=== PATIENT | female | born 1935 | race Caucasian/White ===

== ENCOUNTER → 2017-04-16 | Day surgery (SDC) | payer OTHER ==
[2017-04-11 11:16] VITALS: Ht 149.9 cm; Wt 100.0 kg
[~2017-04-16] VITALS: Ht 149.9 cm; Wt 100.0 kg
[~2017-04-16] MED LIST: ALPPOPS5 OPB; ATV/1 PO; BUSP5TAB59 PO; CALC500C70 PO; CEFD1CAP14 PO; ESMOLOL HCL 10 MG/ML 10 ML VIAL ONE; FURO20TA PO; GLUC1CAP35 PO; LEVO125T5 PO; LIDOCAINE HCL 2% 2 ML VIAL (20MG/ML) ONE; LOSA100T65 PO; METO50TA16 PO; METOPROLOL TARTRATE 50 MG TAB PO SCH; OMEG10007 PO; PHENYLEPHRINE 100MCG/ML 5ML SYR ONE; POTA10TA PO; PROPOFOL IV EMULSION 10 MG/ML 20 ML VIAL IV ONE; SODIUM CHLORIDE 0.9% 500ML 500 ML IV ONE; SPIR25TA PO; WARF-246 PO
--- NOTE | 2017-04-16 10:15 | Endo History and Physical ---
History & Physical Date of Service: April 16, 2017. Chief Complaint: Average risk screening Referring Physician: Maryrcuz Luciano History of Present Illness Average risk screening, recent rectal pain. Past Medical History Atrial Fibrillation, Arthritis, Asthma Past Surgical History Hx Cardiac Surgery: Yes (CARDIOVERSION) Hx Internal Defibrillator: No Hx Pacemaker: No Hx Abdominal Surgery: Yes (PREETI, UMBILICAL HERNIA, JAYE BSO, APPY) Hx of Implantable Prosthesis: No Hx Post-Op Nausea and Vomiting: No Hx Cancer Surgery: No Hx Thoracic Surgery: No Hx Orthopedic: No Hx Urinary Tract Surgery: Yes (URETER OBSTRUCTION REPAIR, BLADDER TACK) Family History None Social History Smoking Status: Never Smoker Hx Substance Use: No Hx Alcohol Use: No Allergies Coded Allergies: Codeine (Verified Allergy, Mild, N/V, 04/11/17) Benzalkonium Chloride (Verified Allergy, Unknown, "DID NOT WORK", 04/11/17) Bimatoprost (Verified Allergy, Unknown, "DID NOT WORK, 04/11/17) Sulfa Antibiotics (Verified Allergy, Unknown, ITCHING/HIVES, 04/11/17) Timolol (Verified Allergy, Unknown, "DID NOT WORK", 04/11/17) Travoprost (Verified Allergy, Unknown, DID NOT WORK, 04/11/17) Current Medications Reported Home Medications Medications Dose Route/Sig Max Daily Dose Days Date Category Dose Instructions Roosevelt-3 (Fish Oil) 1 Ea Cap 1 Cap PO BID 04/11/17 Reported K-Tabs (Potassium Chloride) 10 Meq Tab 1 Tab PO DIRECTED PRN 04/11/17 Reported Lasix (Furosemide) 20 Mg Tab 20 Mg PO DIRECTED PRN 04/11/17 Reported Omnicef (Cefdinir) 300 Mg Cap 300 Mg PO Q12H 04/11/17 Reported Warfarin Sodium 5 Mg Tab 5 Mg PO 6XWK 11/23/15 Reported TAKE HALF A TABLET (2.5 MG) EVERY SATURDAY,SATURDAY,SATURDAY,SATURDAY,SATURDAY AND SATURDAY OR OTHERWISE DIRECTED TO TAKE BY ANTICOAGULATION CLINIC/MD. Warfarin Sodium 5 Mg Tab 5 Mg PO WK 11/23/15 Reported TAKE 5 MG EVERY SATURDAY OR OTHERWISE DIRECTED TO TAKE BY ANTICOAGULATION CLINIC/MD. Ativan (Lorazepam) 1 Mg Tab 1 Mg PO DAILY PRN 11/23/15 Reported Levothyroxine Sodium 125 Mcg Tab 125 Mcg PO QAM 11/23/15 Reported Cozaar (Losartan Potassium) 100 Mg Tab 100 Mg PO HS 11/23/15 Reported Aldactone (Spironolactone) 25 Mg Tab 25 Mg PO HS 11/14/11 Reported Alphagan P (Brimonidine Tartrate) 75 Drops/5 Ml Soln 1 Drops OPB BID 04/11/17 Reported Os-Corbin 500 Plus D (Calcium/Vitamin D) Tab 1 Tab PO HS 04/11/17 Reported Vital Signs Weight (Kilograms): 100 Height (Feet): 4 Height (Inches): 11 Physical Exam General Appearance: WD/WN, no apparent distress Respiratory/Chest: Auscultation: breath sounds normal, no wheezing Cardiovascular: Heart Auscultation: RRR, no murmurs Abdomen: Inspection & Palpation: soft, no tenderness, guarding & rebound Assessment and Plan Cleared for colonoscopy.
[2017-04-16 10:20] VITALS: TEMP 36.5
--- NOTE | 2017-04-16 11:26 | Discharge Instructions ---
Endoscopy Patient Instructions Date / Procedure(s) Performed April 16, 2017. Colonoscopy Allergy Information Coded Allergies: Codeine (Verified Allergy, Mild, N/V, 04/11/17) Benzalkonium Chloride (Verified Allergy, Unknown, "DID NOT WORK", 04/11/17) Bimatoprost (Verified Allergy, Unknown, "DID NOT WORK, 04/11/17) Sulfa Antibiotics (Verified Allergy, Unknown, ITCHING/HIVES, 04/11/17) Timolol (Verified Allergy, Unknown, "DID NOT WORK", 04/11/17) Travoprost (Verified Allergy, Unknown, DID NOT WORK, 04/11/17) Discharge Date / Findings April 16, 2017. Internal hemorrhoids Medication Instructions Stopped Medication(s): coumadin 5 days ago. Restart Stopped Medication(s): Restart all medications including coumadin. Add Citrucel one heaping tablespoon mixed with water daily. Provider Instructions Activity Restrictions - No exercising or heavy lifting for 24 hours. - Do not drink alcohol the day of the procedure. - Do not drive a car or operate machinery until the day after the procedure. - Do not make any important decisions or sign important papers in 24 hours after the procedure. Following Day: - Return to full activity which may include returning to work/school. Diet Start your diet with liquids and light foods (jello, soup, juice, toast). Then eat your usual diet if not nauseated. Treatment For Common After Affects For mild abdominal pain, bloating, or excessive gas: - Rest - Eat lightly - Lie on right side Follow-Up Information Follow-up with Marycruz UREÑA as scheduled Anesthesia Information What You Should Know You have had a procedure that required some medicine to reduce anxiety and discomfort. This treatment is called moderate sedation. After receiving the treatment, you may be sleepy, but you will be able to breathe on your own. The effects of the treatment may last for several hours. Follow these instructions along with Activity/Diet recommendations noted above: * Do NOT do anything where dizziness or clumsiness would be dangerous. * Rest quietly at home today, then you can be up and about tomorrow. * Have a responsible person stay with you the rest of today. * You may have had an I.V. today. If so, you may take the dressing off later today. Recommendations Call your doctor if: * Trouble breathing * Continuous vomiting for more than 24 hours * Temperature above 101 degrees * Severe abdominal pain or bloating * Pain not relieved by pain medicine ordered * There is increased drainage or redness from any incision * A large amount of rectal bleeding greater than 2-3 tablespoons. (If you had a polyp/s removed or have hemorrhoids, a small amount of blood - from the rectum is to be expected.) * You have any unanswered questions or concerns. IN THE EVENT OF A SERIOUS EMERGENCY, GO TO THE NEAREST EMERGENCY ROOM Your discharge instructions were prepared by provider Marty Valenzuela. Patient Instructions Signature Page [facility] [place], [place] Fanny Patient (or Guardian) Signature/Date: I have read and understand the instructions given to me by my caregivers. Caregiver/RN/Doctor Signature/Date: The above-named patient and/or guardian has received patient instructions on this date. + Original Patient Signature Page (only) stays with chart. Please make copy for patient.
--- NOTE | 2017-04-16 11:26 | GI REPORT ---
Procedure Date: 04/16/2017 10:59 AM Procedure: Colonoscopy Indications: Screening for colorectal malignant neoplasm, Incidental - Rectal pain Medicines: Monitored Anesthesia Care Complications: No immediate complications. Estimated blood loss: None. Estimated Blood Loss: Estimated blood loss: none. Procedure: Pre-Anesthesia Assessment: - Prior to the procedure, a History and Physical was performed, and patient medications, allergies and sensitivities were reviewed. The patient's tolerance of previous anesthesia was reviewed. - ASA Grade Assessment: III - A patient with severe systemic disease. After I obtained informed consent, the scope was passed under direct vision. Throughout the procedure, the patient's blood pressure, pulse, and oxygen saturations were monitored continuously. The scope was introduced through the anus and advanced to the terminal ileum, with identification of the appendiceal orifice and IC valve. The colonoscopy was performed with ease. The patient tolerated the procedure well. The quality of the bowel preparation was excellent. The bowel preparation used was split dose MIralax. Findings: Internal hemorrhoids were found during retroflexion. The hemorrhoids were large. Impression: - Internal hemorrhoids. - No specimens collected. - The colon was otherwise normal to the terminal ileum with retroflexed views of the colon and terminal ileum. Recommendation: - No repeat colonoscopy due to age and the absence of advanced adenomas. - Use Citrucel one tablespoon PO daily. - Continue present medications. - Discharge patient to home (with escort). Marty Valenzuela M.D. Marty Valenzuela MD 04/16/2017 11:25:20 AM This report has been signed electronically. Note Initiated On: 04/16/2017 10:59 AM I attest to the content of the Intraoperative Record and orders documented therein, exceptions below
--- NOTE | 2017-04-16 12:09 | Anesthesiology Progress Note ---
Anesthesia Post Op Note Date & Time April 16, 2017 at 12:04 Vital Signs Pain Intensity: 0 Vital Signs Past 12 Hours Date Time Temp Pulse Resp B/P Pulse Ox O2 Delivery O2 Flow Rate FiO2 04/16/17 11:46 129 20 103/79 98 Room Air 04/16/17 11:34 118 20 127/80 97 Room Air 04/16/17 10:20 36.5 128 20 150/75 98 Room Air Notes Mental Status: alert / awake / arousable, participated in evaluation Pt Amnestic to Procedure: Yes Nausea / Vomiting: adequately controlled Pain: adequately controlled Airway Patency, RR, SpO2: stable & adequate BP & HR: stable & adequate, see Notes Hydration State: stable & adequate Anesthetic Complications: no major complications apparent Patient arrived back in A Fib with a HR in the 120's. Was cardioverted to sinus in October - not symptomatic since per her history, yet she had stopped her metoprolol - she thought it was making her heart race so likely had gone back into A Fib. Has been anticoagulated but off coumadin for her colonoscopy. Since off coumadin and took prep, and since BP stable and patient without complaint, went forward with colonoscopy. She tolerated well, was given some esmolol during procedure. Spoke with Dr Zuñiga since her regular extension course coordinator Dr Mcnamara is away and he wanted us to get her restarted on her metoprolol and that her already scheduled visit with them next week should be fine. She will call if any problems, and is feeling very well now in recovery.
[2017-04-16 12:20] VITALS: BP 132/83; PULSE 109; O2SAT 97
== END | disposition home or self-care (01) ==
LOC: C.GI 09:07
PROVIDERS: ATTEND Internal Medicine Gastroenterology
DX: Z12.11 Encounter for screening for malignant neoplasm of colon (principal); K64.8 Other hemorrhoids; I48.91 Unspecified atrial fibrillation; M19.90 Unspecified osteoarthritis, unspecified site; J45.909 Unspecified asthma, uncomplicated; Z90.49 Acquired absence of other specified parts of digestive tract; Z90.89 Acquired absence of other organs; Z79.01 Long term (current) use of anticoagulants; K21.9 Gastro-esophageal reflux disease without esophagitis; N18.9 Chronic kidney disease, unspecified

== ENCOUNTER → 2017-05-15 | Day surgery (SDC) | payer OTHER ==
[~2017-05-15] VITALS: Ht 149.9 cm; Wt 98.6 kg
[~2017-05-15] MED LIST changes: -ESMOLOL HCL 10 MG/ML 10 ML VIAL ONE; -METOPROLOL TARTRATE 50 MG TAB PO SCH; -PHENYLEPHRINE 100MCG/ML 5ML SYR ONE; -SODIUM CHLORIDE 0.9% 500ML 500 ML IV ONE
[2017-05-15 06:53] VITALS: Ht 149.9 cm; Wt 98.6 kg
[2017-05-15 06:54] VITALS: BP 175/87; PULSE 144; TEMP 36.5; O2SAT 92
[2017-05-15 07:32] VITALS: BP 168/71; PULSE 133; O2SAT 100
[2017-05-15 07:35] VITALS: BP 135/67; PULSE 85; O2SAT 100
--- NOTE | 2017-05-15 07:37 | History & Physical Bridge Note ---
H&P Re-Evaluation Bridge Note: I have examined the patient, reviewed the History & Physical and in the interval since the performance of the History & Physical I have noted the following changes of clinical significance: No changes noted
[2017-05-15 07:40] VITALS: BP 118/40; PULSE 82; O2SAT 100
--- NOTE | 2017-05-15 07:41 | Cardiology Procedure Brief Nt ---
Preliminary Cardiology Note Procedure Date May 15, 2017. Pre-Procedure Diagnosis Atrial fibrillation with rapid ventricular response Post-Procedure Diagnosis Successful synchronized electrical cardioversion Procedure(s) Performed Successful synchronized electrical cardioversion Rubber Turner Anders Music Library Assistant(s) None Estimated Blood Loss None Preliminary Findings Successful synchronized electrical cardioversion was performed using 150J and 200J biphasic countershocks. Patient tolerated well. EKG NSR @89 bpm Recommendations Medical management Specimens None Anesthesia Per Dr Rodriguez Complication(s) None Disposition Project Estimator Recovery
--- NOTE | 2017-05-15 07:46 | Anesthesiology Progress Note ---
Anesthesia Post Op Note Date & Time May 15, 2017 at 07:46 Vital Signs Pain Intensity: 3 Vital Signs Past 12 Hours Date Time Temp Pulse Resp B/P (MAP) Pulse Ox O2 Delivery O2 Flow Rate FiO2 05/15/17 07:35 93 16 134/68 (90) 98 Nasal Cannula 4 05/15/17 07:35 85 33 135/67 100 Nasal Cannula 4 05/15/17 07:32 86 16 135/67 (89) 98 Nasal Cannula 4 05/15/17 07:32 133 33 168/71 100 Nasal Cannula 4 05/15/17 06:54 36.5 144 16 175/87 92 Room Air Notes Mental Status: alert / awake / arousable, participated in evaluation Pt Amnestic to Procedure: Yes Nausea / Vomiting: adequately controlled Pain: adequately controlled Airway Patency, RR, SpO2: stable & adequate BP & HR: stable & adequate Hydration State: stable & adequate Anesthetic Complications: no major complications apparent
[2017-05-15 08:32] VITALS: BP 113/49; PULSE 77; O2SAT 74
--- NOTE | 2017-05-15 08:40 | Discharge Instructions ---
Discharge Instructions Procedure Procedure Date: May 15, 2017. Reason for Visit: W/Anesthesia,Dr Mcnamara To Do,Afib. Discharge Discharge Date: May 15, 2017. Discharge Diagnosis: Successful synchronized electrical cardioversion Last Recorded Wt (Kilograms): 98.6 Anesthesia Post Anesthesia Instructions: If you have had General Anesthesia or IV Sedation: * Do not drive today. * Resume driving when surgeon permits. * Do not make important decisions or sign legal documents today. * Call surgeon for: 1. Temperature elevations greater than 101 degrees F. 2. Uncontrollable pain. 3. Excessive bleeding. 4. Persistent nausea and vomiting. 5. Medication intolerance (nausea, vomiting or rash). * For nausea and vomiting use only clear liquids such as: tea, soda, bouillon until nausea subsides, then gradually increase diet as tolerated. * If you have any concerns or questions, call your surgeon's office. If physician is unavailable and it is an emergency, call 911 or go to the nearest emergency room. Instructions Activity Recommendations: limitations as noted below Recommended Home Diet: resume previous diet Allergies: Coded Allergies: Codeine (Verified Allergy, Mild, N/V, 04/11/17) Benzalkonium Chloride (Verified Allergy, Unknown, "DID NOT WORK", 04/11/17) Bimatoprost (Verified Allergy, Unknown, "DID NOT WORK, 04/11/17) Sulfa Antibiotics (Verified Allergy, Unknown, ITCHING/HIVES, 04/11/17) Timolol (Verified Allergy, Unknown, "DID NOT WORK", 04/11/17) Travoprost (Verified Allergy, Unknown, DID NOT WORK, 04/11/17) Provider Instructions ACTIVITY RECOMMENDATIONS: Resume activities as tolerated with no limitations unless specified. __ No lifting over __ pounds for 24 hours. __ Do not engage in vigorous exercise, sexual activity, or sports for 24 hours. __ Do not drive or operate any motorized equipment for 24 hours. __ You may return to work/school tomorrow. SPECIAL CARE: Call with return of racing or irregular heart rhythm Follow Up Follow-up with: Dr Mcnamara as scheduled Tomas Bass Recommendations: Call your doctor if: * Temperature above 101 degrees * Pain not relieved by pain medicine ordered * There is increased drainage or redness from any incision * You have any unanswered questions or concerns. Your Doctors Instructions noted above were prepared by provider Saúl Mcnamara. Patient Signature Section: Patient Instructions Signature Page Lola Escobedo Patient (or Guardian) Signature/Date: I have read and understand the instructions given to me by my caregivers. Caregiver/RN/Doctor Signature/Date: The above-named patient and/or guardian has received patient instructions on this date. + Original Patient Signature Page (only) stays with chart. Please make copy for patient.
--- NOTE | 2017-05-15 09:14 | CARDIOVERSION ---
DATE OF OPERATION: 05/15/2017 INDICATIONS: Atrial fibrillation with rapid ventricular response. BRIEF HISTORY: The patient is an 82-year-old female with history of paroxysmal atrial fibrillation with recent relapse in the atrial fibrillation with poorly tolerated medical therapies and elevated ventricular response rate. She is referred now for synchronized electrical cardioversion. PROCEDURE: After procedure and risks were explained in detail to the patient, informed consent was obtained. The patient was sedated. The anesthesia consult was Dr. Andi Rodriguez with continuous heart rate, blood pressure, and oxygen saturation monitoring. Synchronized electrical cardioversion was then performed using 150 joule, then 200 joule biphasic shock with successful conversion to sinus rhythm. Post procedure, the patient aroused, having tolerated well. EKG post procedure demonstrated a sinus rhythm with a rate of [address]-segments and normal QT interval. RECOMMENDATIONS: The patient will continue with medical management, discharge later today after a period of observation. I attest to the content of the Intraoperative Record and any orders documented therein. Any exception s are noted below.
== END | disposition home or self-care (01) ==
LOC: C.CATH 06:16
PROVIDERS: ATTEND Internal Medicine Cardiovascular Disease
DX: I48.1 Persistent atrial fibrillation (principal); I25.10 Atherosclerotic heart disease of native coronary artery without angina pectoris; I10 Essential (primary) hypertension; I50.9 Heart failure, unspecified; J45.909 Unspecified asthma, uncomplicated; M19.90 Unspecified osteoarthritis, unspecified site; E66.9 Obesity, unspecified; Z88.5 Allergy status to narcotic agent; Z88.2 Allergy status to sulfonamides

== ENCOUNTER → 2018-01-23 | Outpatient (CLI) | payer OTHER ==
[~2018-01-23] MED LIST changes: -CEFD1CAP14 PO; -LIDOCAINE HCL 2% 2 ML VIAL (20MG/ML) ONE; -PROPOFOL IV EMULSION 10 MG/ML 20 ML VIAL IV ONE
[2018-01-28 22:32] LABS: BORDETELLA PERTUSSIS FHA IGA 28 IU/mL; BORDETELLA PERTUSSIS FHA IGG 65 IU/mL; BORDETELLA PERTUSSIS PT IGG 4 IU/mL
== END | disposition home or self-care (01) ==
LOC: C.LABBFT 15:09
PROVIDERS: ATTEND Internal Medicine Critical Care Medicine
DX: R05 Cough (principal)

== ENCOUNTER 2018-02-17 14:24 | Emergency (ER) | payer OTHER ==
[~2018-02-17] VITALS: Ht 162.6 cm; Wt 89.3 kg
[2018-02-17 14:33] VITALS: Ht 162.6 cm; Wt 89.3 kg
[2018-02-17 14:58] VITALS: O2SAT 92
[2018-02-17] MEDS ORDERED: SODIUM CHLORIDE 0.9% 1000ML 1,000 ML IV STA ×2 (15:08→19:19)
[2018-02-17] MEDS ORDERED: ALBUT/IPRATROP 3MG/0.5MG NEB 3 ML VIAL INH STA (15:15)
--- NOTE | 2018-02-17 15:17 | EMERGENCY ROOM VISIT NOTE ---
History Report prepared by Jillian: Thad Castellano Under the Supervision of: Dr. Ritesh Leahy M.D. First contact with patient: 14:55 Chief Complaint: DIARRHEA Stated Complaint: DIARRHEA, DEHYDRATE, COUGH, SICK TO STOMACH,WEAK History of Present Illness The patient is an 83 year old female who presents to the Emergency Room with complaints of persistent diarrhea that she has had for the past several days. The patient states that she can hardly eat anything, because she has diarrhea after eating. The patient's daughter provided the majority of this HPI due to her weakness. She states that along with the diarrhea the patient is also having stomach pains. She describes this pain, as what she used to experience with stomach ulcers which she has had in the past. She is not currently nauseous. The daughter also mentioned that the patient has been coughing and wheezing recently. The patient's son who she lives with just came down with a cold and the daughter believes she may have caught this from him. She is being followed by a technology infusion specialist for her wheezing. The daughter mentioned an episode last Saturday, 6 days ago where she ate a sandwich from [employer] and vomited persistently there after. Source of History: patient, family Onset: Several days Position: chest, abdomen Quality: other (Diarrhea) Timing: other (persistent) Associated Symptoms: + cough Review of Systems See HPI for pertinent positives and negatives. A total of ten systems were reviewed and were otherwise negative. 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) (3) Depression (4) Dyslipidemia (5) Hypertension (6) Hypothyroidism Surgical Problems: (1) H/O: hysterectomy (2) Hx of cholecystectomy (3) S/P appendectomy (4) S/P cholecystectomy (5) S/P hysterectomy Family History Cancer BROTHER Heart disease FATHER Hypertension MOTHER Stroke MOTHER SISTER Social History Smoking Status: Never Smoker Alcohol Use: none Marital Status: Housing Status: lives alone Occupation Status: employed Current/Historical Medications Scheduled Brimonidine Tartrate (Alphagan P), 1 DROPS OPB BID Buspirone Hcl (Buspirone Hcl), 5 MG PO DAILY Calcium/Vitamin D (Os-Corbin 500 Plus D), 2 TAB PO HS Fish Oil ([place]-3), 1 CAP PO BID Zjxtomakaay-Vqycnaqagdb-Cqp C- (Glucosamine Chondroitin), 2 CAP PO BID Levothyroxine Sodium (Levothyroxine Sodium), 125 MCG PO QAM Losartan Potassium (Cozaar), 100 MG PO HS Ondasetron Odt (Zofran Odt), 4 MG SL Q6H Oseltamivir Phosphate (Tamiflu), 75 MG PO BID Spironolactone (Aldactone), 25 MG PO HS Warfarin Sodium (Warfarin Sodium), 5 MG PO 2XWK Warfarin Sodium (Warfarin Sodium), 2.5 MG PO 5XWK Scheduled PRN Furosemide (Lasix), 20 MG PO DIRECTED PRN for LEG SWELLING Lorazepam (Ativan), 1 MG PO DAILY PRN for Anxiety Potassium Chloride (K-Tabs), 10 MEQ PO DIRECTED PRN for WHEN TAKING LASIX Allergies Coded Allergies: Codeine (Verified Allergy, Mild, N/V, 02/17/18) Benzalkonium Chloride (Verified Allergy, Unknown, "DID NOT WORK", 02/17/18) Bimatoprost (Verified Allergy, Unknown, "DID NOT WORK, 02/17/18) Sulfa Antibiotics (Verified Allergy, Unknown, ITCHING/HIVES, 02/17/18) Timolol (Verified Allergy, Unknown, "DID NOT WORK", 02/17/18) Travoprost (Verified Allergy, Unknown, DID NOT WORK, 02/17/18) Physical Exam Vital Signs Date Time Temp Pulse Resp B/P (MAP) Pulse Ox O2 Delivery O2 Flow Rate FiO2 02/17/18 21:40 37.1 105 20 137/100 97 02/17/18 20:12 100 20 99/59 97 Room Air 02/17/18 19:28 110 18 94/71 96 Room Air 02/17/18 18:04 90 22 130/97 96 Room Air 02/17/18 17:21 91 20 94 Room Air 02/17/18 15:48 112 20 131/79 99 Nebulizer 02/17/18 15:25 117 02/17/18 14:58 92 Room Air 02/17/18 14:33 36.4 135 24 112/70 92 Room Air Physical Exam GENERAL: Awake, alert, fatigued-appearing, in no distress HENT: Normocephalic, atraumatic. Oropharynx unremarkable. EYES: Normal conjunctiva. Sclera non-icteric. NECK: Supple. No nuchal rigidity. FROM. No JVD. RESPIRATORY: Scant intermittent wheezes. CARDIAC: Regular rate, normal rhythm. Extremities warm and well perfused. Pulses equal. ABDOMEN: Obese abdomen. Soft, non-distended. No tenderness to palpation. No rebound or guarding. No masses. RECTAL: Deferred. MUSCULOSKELETAL: Chest examination reveals no tenderness. The back is symmetrical on inspection without obvious abnormality. There is no CVA tenderness to palpation. No joint edema. LOWER EXTREMITIES: Calves are equal size bilaterally and non-tender. No edema. No discoloration. NEURO: Normal sensorium. No sensory or motor deficits noted. SKIN: No rash or jaundice noted. Medical Decision & Procedures ER Provider Diagnostic Interpretation: Radiology results as stated below per my review and radiologist interpretation: CT ABD/PELVIS IV CONTRAST ONLY CLINICAL HISTORY: Generalized abdominal pain and diarrhea COMPARISON STUDY: 11/23/2015 TECHNIQUE: Following the IV administration of 116 mL of Optiray-320, CT scan of the abdomen and pelvis was performed from the lung bases to the proximal femurs. Images are reviewed in the axial, sagittal, and coronal planes. IV contrast was administered without complication. A dose lowering technique was utilized adhering to the principles of ALARA. CT DOSE: 896.58 mGy.cm FINDINGS: Lower chest: There is mild lower lobe cylindrical bronchiectasis. Liver: The serosal surface is slightly nodular. No focal hepatic masses are visualized. The portal vein appears patent. Gallbladder: Surgically absent Spleen: Normal in size and attenuation. Pancreas: Unremarkable. Adrenal glands: Unremarkable. Kidneys: There is a 42 mm upper pole left renal cyst. This abuts a complex 13 mm renal mass which appears contained fat and likely represents an angiomyolipoma. This was present on the prior study. There is a 9 mm right renal hypodensity likely representing a cyst. There is mild left-sided hydronephrosis and dilatation of the renal pelvis, likely secondary to a chronic UPJ type obstruction. Bowel: There are no transition zones indicate bowel obstruction. There is colonic diverticulosis. There are no acute peridiverticular inflammatory changes. By history the appendix is surgically absent. Peritoneum: There is no intraperitoneal free air or abdominal ascites. There are bilateral fat-containing inguinal hernias. There is a small fat-containing ventral hernia. Vasculature: The abdominal aorta is normal in course and caliber. Adenopathy: None. Pelvic viscera: The uterus appears surgically absent Skeletal structures: No destructive osseous lesions are seen. IMPRESSION: 1. No evidence of bowel obstruction. No evidence of free air 2. Mild lower lobe bronchiectasis 3. Diverticulosis. No evidence of acute diverticulitis 4. Small fat-containing ventral hernia, and bilateral fat-containing inguinal hernias 5. 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 Stable 42 mm left renal cyst 7. Stable mild left-sided hydronephrosis, likely secondary to a mild chronic UPJ obstruction Electronically signed by: Ambrocio Collins M.D. 02/17/2018 5:08 PM Dictated Date/Time: 02/17/2018 4:58 PM CHEST ONE VIEW PORTABLE CLINICAL HISTORY: Pain, radiating to the abdomen. COMPARISON STUDY: 11/26/2015 FINDINGS: The cardiac and mediastinal contours are normal. There is no evidence of focal pulmonary consolidation. There is no evidence of failure. No pleural effusions are visualized.[ There is mild basilar interstitial thickening, similar to the prior study. There are left lower lobe calcified granulomas. There is no free intraperitoneal air. IMPRESSION: No active disease in the chest. Electronically signed by: Ambrocio Collins M.D. 02/17/2018 3:55 PM Dictated Date/Time: 02/17/2018 3:54 PM Laboratory Results 02/17/18 15:10 Red Blood Count 4.56, Mean Corpuscular Volume 92.3, Mean Corpuscular Hemoglobin 31.6, Mean Corpuscular Hemoglobin Concent 34.2, Mean Platelet Volume 11.5, Neutrophils (%) (Auto) 40.3, Lymphocytes (%) (Auto) 45.0, Monocytes (%) (Auto) 13.3, Eosinophils (%) (Auto) 0.7, Basophils (%) (Auto) 0.5, Neutrophils # (Auto ) 1.66, Lymphocytes # (Auto) 1.86, Monocytes # (Auto) 0.55, Eosinophils # (Auto ) 0.03, Basophils # (Auto) 0.02 02/17/18 15:10 Test 02/17/18 15:10 02/17/18 15:19 02/17/18 15:40 02/17/18 15:46 White Blood Count 4.13 K/uL (4.8-10.8) Red Blood Count 4.56 M/uL (4.2-5.4) Hemoglobin 14.4 g/dL (12.0-16.0) Hematocrit 42.1 % (37-47) Mean Corpuscular Volume 92.3 fL (80-100) Mean Corpuscular Hemoglobin 31.6 pg (25-34) Mean Corpuscular Hemoglobin Concent 34.2 g/dl (32-36) Platelet Count 105 K/uL (130-400) Mean Platelet Volume 11.5 fL (7.4-10.4) Neutrophils (%) (Auto) 40.3 % Lymphocytes (%) (Auto) 45.0 % Monocytes (%) (Auto) 13.3 % Eosinophils (%) (Auto) 0.7 % Basophils (%) (Auto) 0.5 % Neutrophils # (Auto) 1.66 K/uL (1.4-6.5) Lymphocytes # (Auto) 1.86 K/uL (1.2-3.4) Monocytes # (Auto) 0.55 K/uL (0.11-0.59) Eosinophils # (Auto) 0.03 K/uL (0-0.5) Basophils # (Auto) 0.02 K/uL (0-0.2) RDW Standard Deviation 45.9 fL (36.4-46.3) RDW Coefficient of Variation 13.6 % (11.5-14.5) Immature Granulocyte % (Auto) 0.2 % Immature Granulocyte # (Auto) 0.01 K/uL (0.00-0.02) Erythrocyte Sedimentation Rate 20 mm/hr (0-21) Prothrombin Time 23.2 SECONDS (9.0-12.0) Prothromb Time International Ratio 2.2 (0.9-1.1) Anion Gap 8.0 mmol/L (3-11) Est Creatinine Clear Calc Drug Dose 45.5 ml/min Estimated GFR () 57.7 Estimated GFR (Non- 49.8 BUN/Creatinine Ratio 13.9 (10-20) Calcium Level 8.0 mg/dl (8.5-10.1) Total Bilirubin 0.6 mg/dl (0.2-1) Direct Bilirubin 0.2 mg/dl (0-0.2) Aspartate Amino Transf (AST/SGOT) 35 U/L (15-37) Alanine Aminotransferase (ALT/SGPT) 45 U/L (12-78) Alkaline Phosphatase 81 U/L (45-117) Troponin I < 0.015 ng/ml (0-0.045) C-Reactive Protein 0.82 mg/dl (0-0.29) Total Protein 6.8 gm/dl (6.4-8.2) Albumin 3.0 gm/dl (3.4-5.0) Lipase 214 U/L (73-393) Bedside Lactic Acid Venous 2.32 mmol/L (0.90-1.70) Influenza Type A (RT-PCR) Neg for Influ A (NEG) Influenza Type A Antigen Neg for Influ A (NEG) Influenza Type B Antigen Neg for Influ B (NEG) Influenza Type B (RT-PCR) POS for Influ B (NEG) Venous Blood pH 7.39 (7.36-7.41) Venous Blood Partial Pressure CO2 45 mmHg (38.0-50.0) Venous Blood Partial Pressure O2 51 mmHg Venous Blood HCO3 27 mmol/L Venous Blood Oxygen Saturation 83.6 % Venous Blood Base Excess 1.2 mEq/L Test 02/17/18 16:20 02/17/18 20:20 Urine Color YELLOW Urine Appearance CLEAR (CLEAR) Urine pH 6.0 (4.5-7.5) Urine Specific [place] 1.007 (1.000-1.030) Urine Protein NEG (NEG) Urine Glucose (UA) TRACE (NEG) Urine Ketones NEG (NEG) Urine Occult Blood NEG (NEG) Urine Nitrite NEG (NEG) Urine Bilirubin NEG (NEG) Urine Urobilinogen NEG (NEG) Urine Leukocyte Esterase TRACE (NEG) Urine WBC (Auto) 1-5 /hpf (0-5) Urine RBC (Auto) 0-4 /hpf (0-4) Urine Hyaline Casts (Auto) 1-5 /lpf (0-5) Urine Epithelial Cells (Auto) >30 /lpf (0-5) Urine Bacteria (Auto) 1+ (NEG) Lactic Acid Level 1.8 mmol/L (0.4-2.0) Date/Time Source Procedure Growth Status 02/17/18 16:20 Stool C.difficile Toxin B Gene (PCR) - Final No C. difficile toxin B gene detected Complete Laboratory results reviewed by me Medications Administered Medications (Trade) Dose Ordered Sig/Ela Route Start Time Stop Time Status Last Admin Dose Admin Sodium Chloride 1,000 ml @ 999 mls/hr Q1H1M STAT IV 02/17/18 15:08 02/17/18 16:08 DC 02/17/18 15:40 999 MLS/HR Albuterol/ Ipratropium (Duoneb) 3 ml NOW STAT INH 02/17/18 15:15 02/17/18 15:16 DC 02/17/18 15:40 3 ML Sodium Chloride 1,000 ml @ 999 mls/hr Q1H1M STAT IV 02/17/18 19:19 02/17/18 20:19 DC 02/17/18 19:27 999 MLS/HR Oseltamivir Phosphate (Tamiflu Cap) 75 mg NOW STAT PO 02/17/18 20:25 02/17/18 20:26 DC 02/17/18 20:34 75 MG ECG Per My Interpretation Indication: weakness Rate (beats per minute): 106 Rhythm: atrial fibrillation (with RVR) Findings: other (Normal axis, no JOSE/STD) ED Course 1506: The patient was evaluated in room C5. A complete history and physical exam was performed. 1508: Ordered Sodium Chloride 1000 mL @ 999 mL/hr IV. 1515: Ordered Duoneb 3 mL INH. Medical Decision I reviewed the patient's past medical history, medications, and the nursing notes as described above. Differential diagnosis: Etiologies such as appendicitis, diverticulitis, PUD, biliary pathology, UTI, pancreatitis, obstruction, mesenteric ischemia, aortic pathology, infections, inflammatory bowel disease, renal colic, as well as others were entertained. The patient is an 83-year-old woman with a past medical history of A. fib on Coumadin presents emergency department with nausea vomiting diarrhea as well as body aches per hpi. On arrival the patient is uncomfortable and fatigued but no acute distress, afebrile stable vital signs. EKG unremarkable. Lactate marginally elevated on arrival to 2.3. In the setting of appearing clinically dry. WBC 4 consistent with viral illness. CXR negative. CT abdomen pelvis negative for any acute findings. Influenza screen negative however PCR was positive for influenza B. Patient subsequently significantly improved after IV fluid hydration and repeat lactate after hydration is within normal limits. While the patient's symptoms have been ongoing for greater than 48 hours given the prevalence and virulence of influenza in the community this season will treat with Tamiflu. Findings and plan for follow-up reviewed with patient. Patient agreeable and d/c'd per discharge instructions. Impression Primary Impression: Influenza B Additional Impression: Dehydration Scribe Attestation The scribe's documentation has been prepared under my direction and personally reviewed by me in its entirety. I confirm that the note above accurately reflects all work, treatment, procedures, and medical decision making performed by me. Departure Information Dispostion Home / Self-Care Prescriptions Ondasetron Odt (ZOFRAN ODT) 4 Mg Tab 4 MG SL Q6H for Nausea, #10 TAB Prov: Ritesh Leahy M.D. 02/17/18 Oseltamivir Phosphate (Tamiflu) 75 Mg Cap 75 MG PO BID, #10 CAP Prov: Ritesh Leahy M.D. 02/17/18 Referrals Jasiel Oscar MD (PCP) Patient Instructions ED Dehydration, ED Flu, My [facility] Additional Instructions Please follow up with your primary care physician in the next 1-3 days for re- evaluation. You were found to have the flu (influenza B) which led to mild dehydration due to your symptoms. Otherwise, your exam, EKG, chest xray, lab results, and CT scan did not show signs of an emergent condition at this time. Acetaminophen for pain and fevers as needed. Zofran as needed for nausea. Tamiflu as directed. Drink plenty of fluids to ensure hydration. Return to the emergency department for worsening symptoms as described in the accompanying instructions. Problem Qualifiers
[2018-02-17 15:22] LABS: BASO % 0.5 %; BASO ABS # 0.02 K/uL (0-0.2); EOS % 0.7 %; EOS ABS # 0.03 K/uL (0-0.5); HEMATOCRIT 42.1 % (37-47); HEMOGLOBIN 14.4 g/dL (12.0-16.0); IG# 0.01 K/uL (0.00-0.02); LYMPH ABS # 1.86 K/uL (1.2-3.4); MEAN CELL VOLUME 92.3 fL (80-100); MEAN CORPUSCULAR HEMOGLOBIN 31.6 pg (25-34); MEAN CORPUSCULAR HGB CONC 34.2 g/dl (32-36); MEAN PLATELET VOLUME 11.5 fL (7.4-10.4); MONO % 13.3 %; MONO ABS # 0.55 K/uL (0.11-0.59); NEUT % 40.3 %; NEUT ABS # 1.66 K/uL (1.4-6.5); PLATELET COUNT 105 K/uL (130-400); RED CELL DISTRIBUTION WIDTH CV 13.6 % (11.5-14.5); RED CELL DISTRIBUTION WIDTH SD 45.9 fL (36.4-46.3); WHITE BLOOD COUNT 4.13 K/uL (4.8-10.8)
[2018-02-17 15:30] LABS: INR 2.2 (0.9-1.1)
[2018-02-17] MEDS ORDERED: OPTIRAY 320 IV PRN (15:30)
[2018-02-17 15:41] LABS: ALT/SGPT 45 U/L (12-78); AST/SGOT 35 U/L (15-37); BLOOD UREA NITROGEN 15 mg/dl (7-18); CARBON DIOXIDE 25 mmol/L (21-32); CREATININE 1.05 mg/dl (0.60-1.20); GLUCOSE 263 mg/dl (70-99); LIPASE 214 U/L (73-393); SODIUM 134 mmol/L (136-145)
[2018-02-17 15:46] LABS: ALKALINE PHOSPHATASE 81 U/L (45-117); TOTAL PROTEIN 6.8 gm/dl (6.4-8.2)
--- NOTE | 2018-02-17 15:57 | DIAGNOSTIC IMAGING REPORT ---
CHEST ONE VIEW PORTABLE CLINICAL HISTORY: Pain, radiating to the abdomen. COMPARISON STUDY: 11/26/2015 FINDINGS: The cardiac and mediastinal contours are normal. There is no evidence of focal pulmonary consolidation. There is no evidence of failure. No pleural effusions are visualized.[ There is mild basilar interstitial thickening, similar to the prior study. There are left lower lobe calcified granulomas. There is no free intraperitoneal air. IMPRESSION: No active disease in the chest. Electronically signed by: Ambrocio Collins M.D. 02/17/2018 3:55 PM Dictated Date/Time: 02/17/2018 3:54 PM
[2018-02-17 16:51] LABS: INFLUENZA B ANTIGEN Neg for Influ B (NEG)
--- NOTE | 2018-02-17 17:09 | DIAGNOSTIC IMAGING REPORT ---
CT ABD/PELVIS IV CONTRAST ONLY CLINICAL HISTORY: Generalized abdominal pain and diarrhea COMPARISON STUDY: 11/23/2015 TECHNIQUE: Following the IV administration of 116 mL of Optiray-320, CT scan of the abdomen and pelvis was performed from the lung bases to the proximal femurs. Images are reviewed in the axial, sagittal, and coronal planes. IV contrast was administered without complication. A dose lowering technique was utilized adhering to the principles of ALARA. CT DOSE: 896.58 mGy.cm FINDINGS: Lower chest: There is mild lower lobe cylindrical bronchiectasis. Liver: The serosal surface is slightly nodular. No focal hepatic masses are visualized. The portal vein appears patent. Gallbladder: Surgically absent Spleen: Normal in size and attenuation. Pancreas: Unremarkable. Adrenal glands: Unremarkable. Kidneys: There is a 42 mm upper pole left renal cyst. This abuts a complex 13 mm renal mass which appears contained fat and likely represents an angiomyolipoma. This was present on the prior study. There is a 9 mm right renal hypodensity likely representing a cyst. There is mild left-sided hydronephrosis and dilatation of the renal pelvis, likely secondary to a chronic UPJ type obstruction. Bowel: There are no transition zones indicate bowel obstruction. There is colonic diverticulosis. There are no acute peridiverticular inflammatory changes. By history the appendix is surgically absent. Peritoneum: There is no intraperitoneal free air or abdominal ascites. There are bilateral fat-containing inguinal hernias. There is a small fat-containing ventral hernia. Vasculature: The abdominal aorta is normal in course and caliber. Adenopathy: None. Pelvic viscera: The uterus appears surgically absent Skeletal structures: No destructive osseous lesions are seen. IMPRESSION: 1. No evidence of bowel obstruction. No evidence of free air 2. Mild lower lobe bronchiectasis 3. Diverticulosis. No evidence of acute diverticulitis 4. Small fat-containing ventral hernia, and bilateral fat-containing inguinal hernias 5. 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 Stable 42 mm left renal cyst 7. Stable mild left-sided hydronephrosis, likely secondary to a mild chronic UPJ obstruction Electronically signed by: Ambrocio Collins M.D. 02/17/2018 5:08 PM Dictated Date/Time: 02/17/2018 4:58 PM
[2018-02-17 20:23] LABS: INFLUENZA A PCR Neg for Influ A (NEG); INFLUENZA B PCR POS for Influ B (NEG)
[2018-02-17] MEDS ORDERED: OSELTAMIVIR PHOSPHATE 75 MG CAP PO STA (20:25)
[2018-02-17] MEDS ORDERED: OSEL75CA23 PO (21:03)
[2018-02-17] MEDS ORDERED: ONDA4TAB10 SL (21:03)
[2018-02-17 21:40] VITALS: BP 137/100; PULSE 105; TEMP 37.1; O2SAT 97
== END 2018-02-17 21:45 | disposition home or self-care (01) ==
LOC: C.EDB 14:25 → C.EDC 21:45
DX: J10.2 Influenza due to other identified influenza virus with gastrointestinal manifestations (principal); E86.0 Dehydration; F32.9 Major depressive disorder, single episode, unspecified; I10 Essential (primary) hypertension; I48.91 Unspecified atrial fibrillation; Z79.01 Long term (current) use of anticoagulants; E03.9 Hypothyroidism, unspecified; Q62.39 Other obstructive defects of renal pelvis and ureter; Z90.710 Acquired absence of both cervix and uterus; Z90.49 Acquired absence of other specified parts of digestive tract; Z82.49 Family history of ischemic heart disease and other diseases of the circulatory system; Z82.3 Family history of stroke; Z80.9 Family history of malignant neoplasm, unspecified; Z88.6 Allergy status to analgesic agent; Z88.2 Allergy status to sulfonamides; Z88.8 Allergy status to other drugs, medicaments and biological substances

== ENCOUNTER 2024-08-14 15:41 | Inpatient (IN) ==
--- NOTE | 2024-08-14 16:40 | Emergency Department Note ---
Impression & Plan Acute left flank pain, Hematoma of left chest wall, Fall, Anticoagulated on Coumadin, Vomiting, Acute pyelonephritis ED Provider Note NAME: ROCKY GUERRERO AGE: 89 SEX: F : 1935 ARRIVES VIA: Walk-In INFORMANT: [Patient] ED PROVIDER(S): [Nigel Ramos MD] CHIEF COMPLAINT: Flank pain HISTORY OF PRESENT ILLNESS: The patient is an 89-year-old female who presents to the ER with left flank pain that began this morning and has persisted all day. She has vomited twice. The patient did fall about 10 days ago. She fell on some basement steps. She did bruise of the left flank. She also bruised her lower extremities, especially the right. She denies any head trauma. There has been no cough or congestion. No shortness of breath. No abdominal pain. No urinary complaints. No fever. PMHx/PSHx/Social Hx: See Below PHYSICAL EXAM: GENERAL: Patient is in no acute distress. HEENT: No acute trauma, normocephalic atraumatic, mucous membranes moist, no nasal congestion. NECK: No stridor, no adenopathy, nontender cervical spine, trachea is midline. LUNGS: Clear to auscultation bilaterally, no wheeze, no rhonchi, breath sounds equal. HEART: Mildly tachycardic, irregular rhythm, no obvious murmur. Chest: There is no anterior chest wall discomfort. She does have some contusion to the area of the left posterior thorax. ABDOMEN: Soft, nontender, no peritonitis. Obese. EXTREMITIES: No cyanosis, full range of motion of all the joints without pain or difficulty. The patient does have contusion to both distal lower extremities, especially on the right. There is an older contusion of the right posterior elbow. NEUROLOGIC: Oriented x 3, no acute motor or sensory deficits, no focal weakness. SKIN: No jaundice, no diaphoresis. Back: No midline thoracic or lumbar discomfort with palpation. DIFFERENTIAL DIAGNOSIS: Rib fracture, hemothorax, musculoskeletal pain, renal colic, hydronephrosis, intra-abdominal bleeding, UTI, pyelonephritis, among others. EMERGENCY DEPARTMENT PROCEDURES: MEDICAL DECISION MAKING: There is no leukocytosis or concerning anemia. There is a normal platelet count. INR is around 3, consistent with her Coumadin use. No renal failure or significant electrolyte abnormality. No concerning liver enzyme elevation. ECG shows atrial fibrillation, no obvious ST elevation. Cardiac enzyme testing x 1 is not consistent with acute cardiac injury. Urinalysis is suspicious for infection. Chest film does not show free air, pneumonia or rib fracture. Brain CT shows no acute bleed or mass effect. CT imaging of the chest and abdomen were performed. There was no urinary obstruction. No evidence for acute intra- abdominal bleeding. No evidence for injury to the left chest wall. On exam, the patient was complaining of left flank pain. There was a contusion in this area but there was minimal discomfort with palpation. She did vomit while here in the ED. The patient received IV Zofran for nausea. She received an additional amount of IV Zofran, she was given IV Phenergan for persistent nausea. She was ordered for IV morphine for pain, IV Tylenol for pain. She received IV ceftriaxone as antibiotic coverage. The patient does feel better, she seems more comfortable. I do think the patient requires a hospital stay. She may be having some discomfort from her fall, I am concerned that pyelonephritis may be a large part of her presentation, especially with the vomiting. The patient has agreed to stay in the hospital. I did speak with case management, the on-call hospitalist was consulted. Prior/Outside records/notes reviewed: None ECG per my interpretation: Indication was flank pain. The ECG shows atrial fibrillation with a rate of 119. There is diffuse nonspecific ST change. There is no acute ST elevation. No PVCs. The QTc is 376. Continuous Cardiac Monitoring per my interpretation: An order was placed for continuous cardiac monitoring. The monitor shows a rate of 107 with atrial fibrillation. Imaging/x-ray results per my interpretation: Chest x-ray does not show mediastinal widening, pneumonia, rib fracture or pneumothorax. Chronic Medical/Social conditions affecting care: Advanced age, chronic Coumadin use. Care/Management discussed with: Case management, the on-call hospitalist. 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) S/P hysterectomy (Chronic) S/P cholecystectomy (Chronic) S/P appendectomy (Chronic) Medical History Atrial fibrillation Hypertension Social History Smoking Status: Never smoker Hx Alcohol Use: No Hx Substance Use: No Preferred Language: Hebrew Communication Ability: Effective Hospital Manager Required: No Beliefs That Will Affect Care: None Current Living Situation: Alone Current Living Situation Comment: lives at home alone Other Information That Helps Us Care for You: No Feels Safe at Home: Yes Safety Concerns: Feels Safe At This Time Assistive Devices: Cane and Stair Lift Allergies Allergies Allergy/AdvReac Type Severity Reaction Status Date / Time codeine Allergy Mild N/V Verified 08/14/24 22:28 adhesive tape Allergy Unknown Rash Verified 08/14/24 22:28 celecoxib [From Celebrex] Allergy Unknown Unknown Verified 08/14/24 22:28 Sulfa (Sulfonamide Allergy Unknown ITCHING/HIV Verified 08/14/24 22:28 Antibiotics) ES benzalkonium chloride AdvReac Unknown "DID NOT Verified 08/14/24 22:28 WORK" bimatoprost AdvReac Unknown "DID NOT Verified 08/14/24 22:28 WORK dulaglutide [From Trulicity] AdvReac Unknown Muscle Pain Verified 08/14/24 22:28 timolol AdvReac Unknown "DID NOT Verified 08/14/24 22:28 WORK" travoprost AdvReac Unknown DID NOT Verified 08/14/24 22:28 WORK Home Meds Home Medications Medication Instructions Recorded Confirmed furosemide 20 mg tablet 20 mg PO DAILY PRN swelling 11/03/18 08/14/24 lorazepam 1 mg tablet 1 mg PO HS PRN Anxiety 11/03/18 08/14/24 losartan 100 mg tablet 100 mg PO DAILY 11/03/18 08/14/24 potassium chloride 10 mEq 10 meq PO DAILY PRN Fluid Retention 11/03/18 08/14/24 tablet,extended release(part/cryst) spironolactone 25 mg tablet 12.5 mg PO DAILY 11/03/18 08/14/24 warfarin 5 mg tablet 2.5 - 5 mg PO DAILY 11/03/18 08/14/24 brimonidine 0.1 % eye drops 1 drp OPB TID 02/01/22 08/14/24 (Alphagan P) calcium carbonate 500 mg-vitamin 1 tab PO DAILY 02/01/22 08/14/24 D3 10 mcg (400 unit) tablet (Calcium 500 + D) [id number] C-Mn 500 1 cap PO DAILY 02/01/22 08/14/24 mg-400 mg capsule levothyroxine 137 mcg tablet 137 mcg PO DAILYBB 02/01/22 08/14/24 magnesium 200 mg tablet 400 mg PO TID 02/01/22 08/14/24 metformin 500 mg tablet,extended 500 mg PO BID 02/01/22 08/14/24 release 24 hr omega-3 fatty acids 1,000 mg PO DAILY 02/01/22 08/14/24 Results & Data (ED) Vital Signs Vital Signs - 24 hr 08/14/24 15:48 08/14/24 16:41 08/14/24 17:48 Temperature 36.8 C Temperature Source Temporal Artery Scan Pulse Rate 107 H 115 H Pulse Rate [Apical] 115 H Respiratory Rate 20 18 Respiratory Effort / Characteristics Non-Labored Spontaneous Respiratory Depth Normal Respiratory Pattern Regular Blood Pressure 198/94 H Blood Pressure [Right Arm] 165/113 H Blood Pressure Mean 128 Blood Pressure Mean [Right Arm] 130 Blood Pressure Position Sitting Blood Pressure Position [Right Arm] Pulse Oximetry 97 94 Oxygen Delivery Method Room Air Room Air Oxygen Flow Rate Sepsis Recent Fever Within 48 Hours No Sepsis New/Unexplained Change in Mental Status No Sepsis Action Taken by Nursing No Action Required 08/14/24 20:39 08/14/24 21:00 08/14/24 22:00 Temperature Temperature Source Pulse Rate 102 H Pulse Rate [Apical] 101 H 109 H Respiratory Rate 18 22 Respiratory Effort / Characteristics Non-Labored Non-Labored Respiratory Depth Normal Normal Respiratory Pattern Regular Regular Blood Pressure Blood Pressure [Right Arm] 125/85 166/98 H Blood Pressure Mean Blood Pressure Mean [Right Arm] 98 120 Blood Pressure Position Blood Pressure Position [Right Arm] Lying Lying Pulse Oximetry 100 98 Oxygen Delivery Method Nasal Cannula Nasal Cannula Oxygen Flow Rate 2 2 Sepsis Recent Fever Within 48 Hours Sepsis New/Unexplained Change in Mental Status Sepsis Action Taken by Nursing 08/14/24 23:00 08/15/24 00:12 Temperature Temperature Source Pulse Rate Pulse Rate [Apical] 98 H 89 Respiratory Rate 20 18 Respiratory Effort / Characteristics Non-Labored Non-Labored Respiratory Depth Normal Normal Respiratory Pattern Regular Regular Blood Pressure Blood Pressure [Right Arm] 148/79 H 127/81 Blood Pressure Mean Blood Pressure Mean [Right Arm] 102 96 Blood Pressure Position Blood Pressure Position [Right Arm] Lying Pulse Oximetry 99 99 Oxygen Delivery Method Nasal Cannula Nasal Cannula Oxygen Flow Rate 2 2 Sepsis Recent Fever Within 48 Hours Sepsis New/Unexplained Change in Mental Status Sepsis Action Taken by Jail Medications Current Medication List: was personally reviewed by me Laboratory Data Attestation: I reviewed the patient's lab results. 08/15/24 07:10 08/15/24 08:59 Lab Results 08/14/24 08/14/24 Range/Units 15:57 17:37 WBC 8.01 (4.8-10.8) K/ul RBC 4.55 (4.20-5.40) M/uL Hgb 14.8 (12.0-16.0) g/dl Hct 42.8 (37.0-47.0) % MCV 94.1 (80.0-100.0) fL MCH 32.5 (25.0-34.0) pg MCHC 34.6 (32.0-36.0) g/dL RDW Std Deviation 42.5 (36.4-46.3) fL RDW Coeff of Ellen 12.4 (11.5-14.5) % Plt Count 189 (130-400) K/uL MPV 10.6 (9.4-12.4) fL Immature Gran % (Auto) 1.4 % Neut % (Auto) 72.4 % Lymph % (Auto) 17.1 % [place] % (Auto) 8.0 % Eos % (Auto) 0.4 % Baso % (Auto) 0.7 % Neut # (Auto) 5.80 (1.40-6.50) K/uL Lymph # (Auto) 1.37 (1.20-3.40) K/uL [place] # (Auto) 0.64 H (0.11-0.59) K/uL Eos # (Auto) 0.03 (0.00-0.50) K/uL Baso # (Auto) 0.06 (0.00-0.20) K/uL Immature Gran # (Auto) 0.11 (0.01-0.20) K/uL PT 30.6 H (9.0-12.0) Seconds INR 3.1 H (0.9-1.1) APTT 37 H (21-31) Seconds PTT Ratio 1.4 Sodium 135 L (136-145) mmol/L Potassium 4.6 (3.5-5.1) mmol/L Chloride 96 L (98-107) mmol/L Carbon Dioxide 28 (21-32) mmol/L Anion Gap 11 (3-11) BUN 19 (6-23) mg/dl Creatinine 0.80 (0.6-1.2) mg/dl Est Cr Clr Drug Dosing Not Reportable Est GFR ( Amer) 76.8 ml/min Est GFR (Non-Af Amer) 66.3 ml/min BUN/Creatinine Ratio 23.8 H (10-20) Glucose 256 H (70-99(Fasting)) mg/dl Calcium 9.5 (8.6-10.3) mg/dl Total Bilirubin 1.2 H (0.2-1.0) mg/dl AST 21 (13-39) U/L ALT 23 (7-52) U/L Alkaline Phosphatase 74 (34-104) U/L Troponin I High Sens 9.7 (0-14) pg/ml Total Protein 7.3 (6.0-8.3) gm/dl Albumin 4.4 (3.4-5.0) gm/dl Globulin 2.9 (2.5-4.0) gm/dl Albumin/Globulin Ratio 1.5 (0.9-2) Urine Color Dark Yellow Urine Appearance Cloudy A (Clear) Urine pH 6.0 (4.5-7.5) Ur Specific [place] 1.030 (1.000-1.030) Urine Protein 1+ H (Negative) Urine Glucose (UA) 3+ H (Negative) Urine Ketones 1+ H (Negative) Urine Blood Negative (Negative) Urine Nitrite Negative (Negative) Urine Bilirubin Negative (Negative) Urine Urobilinogen Negative (Negative) Ur Leukocyte Esterase 1+ H (Negative) Urine WBC (Auto) 21-50 H (0-5) /hpf Urine RBC (Auto) 6-10 H (0-2) /hpf U Hyaline Cast (Auto) 0-2 (0-2) /lpf U Epithel Cells (Auto) >20 H (0-2) /hpf Urine Bacteria (Auto) 3+ H (None Seen) Administered Medications Calcium/Vitamin D (Calcium 600mg + Vit D 400 Iu Tab) 1 tab PO DAILY LORE Stop: 09/14/24 08:59 Last Admin: 08/15/24 07:39 Dose: 1 tab Documented By: JOSE Insulin Aspart (Insulin Aspart Per Unit Charge) 0 units SC ACHS LORE Stop: 09/14/24 07:29 Last Admin: 08/15/24 08:57 Dose: 5 units Documented By: JOSE Co-signed By: YVONNE Levothyroxine Sodium (Levothyroxine Sodium 137 Mcg Tablet) 137 mcg PO DAILYBB [facility] Stop: 09/14/24 06:29 Last Admin: 08/15/24 06:21 Dose: 137 mcg Documented By: AMIRA Losartan Potassium (Losartan Potassium 50 Mg Tab) 100 mg PO DAILY LORE Stop: 09/14/24 08:59 Last Admin: 08/15/24 07:40 Dose: 100 mg Documented By: JOSE Magnesium Oxide (Magnesium Oxide 400 Mg Tab) 400 mg PO TID LORE Stop: 09/14/24 08:59 Last Admin: 08/15/24 07:40 Dose: 400 mg Documented By: JOSE Miscellaneous (Brimonidine [Alphagan P] 0.1% - Order Awaiting Action) 1 each N/A QS [facility] Stop: 09/14/24 07:59 Last Admin: 08/15/24 07:38 Dose: Not Given Documented By: JOSE Ondansetron HCl (Ondansetron Inj 2 Mg/Ml 2 Ml Vial) 4 mg IV Q6H PRN PRN Reason: Nausea Stop: 09/14/24 02:01 Last Admin: 08/15/24 02:26 Dose: 4 mg Documented By: AMIRA Spironolactone (Spironolactone 12.5 Mg Tab) 12.5 mg PO DAILY LORE Stop: 09/14/24 08:59 Last Admin: 08/15/24 07:40 Dose: 12.5 mg Documented By: JOSE Discontinued Medications Hydromorphone HCl (Hydromorphone Inj 0.5 Mg/0.5 Ml Syr) 0.5 mg IV NOW STA Stop: 08/15/24 00:51 Last Admin: 08/15/24 01:00 Dose: 0.5 mg Documented By: BISHOP Sodium Chloride (Nss) 500 mls @ 999 mls/hr IV .Q31M ONE Stop: 08/14/24 17:06 Last Infusion: 08/14/24 17:46 Dose: Infused Documented By: Admin: 08/14/24 17:19 Dose: 999 mls/hr Documented By: ASTRID Ceftriaxone Sodium (Rocephin) 2,000 mg in 50 mls @ 100 mls/hr IV NOW STA Stop: 08/14/24 17:25 Last Infusion: 08/14/24 17:46 Dose: Infused Documented By: Admin: 08/14/24 17:16 Dose: 100 mls/hr Documented By: ASTRID Acetaminophen (Ofirmev) 1,000 mg in 100 mls @ 400 mls/hr IV NOW STA Stop: 08/14/24 17:39 Last Infusion: 08/14/24 18:04 Dose: Infused Documented By: Admin: 08/14/24 17:45 Dose: 400 mls/hr Documented By: ASTRID Promethazine HCl (Phenergan) 6.25 mg in 50.25 mls @ 201 mls/hr IV NOW STA Stop: 08/14/24 18:37 Last Admin: 08/14/24 21:35 Dose: Not Given Documented By: BISHOP Insulin Aspart (Insulin Aspart Per Unit Charge) 5 units SC NOW STA Stop: 08/15/24 02:09 Last Admin: 08/15/24 02:24 Dose: 5 units Documented By: AEM Co-signed By: MELE Ioversol (Optiray 320 100ml) 90 ml IV ONCE ONE Stop: 08/14/24 19:01 Last Admin: 08/14/24 19:01 Dose: 90 ml Documented By: HÉCTOR Morphine Sulfate (Morphine Sulfate 2 Mg/Ml Carp) 2 mg IV NOW STA Stop: 08/14/24 16:37 Last Admin: 08/14/24 17:43 Dose: Not Given Documented By: NRMila Morphine Sulfate (Morphine Sulfate 2 Mg/Ml Carp) 2 mg IV Q30M PRN PRN Reason: Pain Stop: 08/28/24 16:35 Last Admin: 08/14/24 20:12 Dose: 2 mg Documented By: Admin: 08/14/24 18:22 Dose: 2 mg Documented By: ASTRID Ondansetron HCl (Ondansetron Inj 2 Mg/Ml 2 Ml Vial) 4 mg IV NOW STA Stop: 08/14/24 16:37 Last Admin: 08/14/24 17:16 Dose: 4 mg Documented By: ASTRID Ondansetron HCl (Ondansetron Inj 2 Mg/Ml 2 Ml Vial) 4 mg IV NOW STA Stop: 08/14/24 18:24 Last Admin: 08/14/24 18:35 Dose: 4 mg Documented By: ASTRID Discharge Plan Visit Data Chief Complaint: Flank Pain Stated Complaint: LT FLANK PAIN, AND VOMIT ED Provider: Nigel Ramos Discharge Problem: Acute left flank pain, Hematoma of left chest wall, Fall, Anticoagulated on Coumadin, Vomiting, Acute pyelonephritis Patient Disposition: Admitted As Inpatient Condition: Fair Discharge Instructions Interventions: ED Discharge Assessment Last Done: 08/15/24 01:35 Discharge Problem: Hematoma of left chest wall Qualifiers: Encounter type: initial encounter Qualified Code(s): S20.212A - Contusion of left front wall of thorax, initial encounter Fall Qualifiers: Encounter type: initial encounter Qualified Code(s): W19.XXXA - Unspecified fall, initial encounter Vomiting Qualifiers: Vomiting type: unspecified Nausea presence: with nausea Qualified Code(s): R 11.2 - Nausea with vomiting, unspecified
[2024-08-14 16:42] LABS: Appearance Urine Cloudy (Clear); Bacteria Urine Automated 3+ (None Seen); Bilirubin Urine Negative (Negative); Blood Urine Negative (Negative); Cast Urine Automated 0-2 /lpf (0-2); Color Urine Dark Yellow; Epithelial Cell Urine Auto >20 /hpf (0-2); Glucose Urine UA 3+ (Negative); Ketones Urine 1+ (Negative); Leukocyte Esterase Urine 1+ (Negative); Nitrite Urine Negative (Negative); Protein Urine 1+ (Negative); Urobilinogen Urine Negative (Negative); WBC Urine Automated 21-50 /hpf (0-5)
--- NOTE | 2024-08-14 16:58 | XRay Report ---
XR chest 1V portable HISTORY: 89 years-old Female illness acute shortness of breath COMPARISON: 11/03/2018 TECHNIQUE: AP view of the chest FINDINGS: Cardiac silhouette is mildly enlarged. Mild subsegmental bibasilar densities. Atherosclerosis of the aorta. No pneumothorax, large pleural effusion or overt pulmonary edema. Bones appear grossly intact. Left-sided rotator cuff calcific tendinosis. IMPRESSION: 1. Mild cardiomegaly without overt pulmonary edema. 2. Linear bibasilar densities suggest atelectasis. ACT 112: Negative or not required by law. The above report was generated using voice recognition software. It may contain grammatical, syntax o r spelling errors. Electronically signed by: Eliezer Jacob M.D. 08/14/2024 4:56 PM
[2024-08-14] MEDS: ONDANSETRON INJ 2 MG/ML 2 ML VIAL IV STA ×2 (17:16→18:35)
[2024-08-14] MEDS: cefTRIAXone SODIUM 2,000 MG/50 ML BAG IV STA (17:16)
[2024-08-14] MEDS: SODIUM CHLORIDE 0.9% 500 ML IV ONE (17:19)
[2024-08-14] MEDS: MoRPHine SULFATE 2 MG/ML CARP IV STA (17:43)
[2024-08-14] MEDS: ACETAMINOPHEN 1,000 MG/100 ML VIAL IV STA (17:45)
[2024-08-14 18:03] LABS: Basophils # (auto) 0.06 K/uL (0.00-0.20); Basophils % (auto) 0.7 %; Eosinophils # (auto) 0.03 K/uL (0.00-0.50); Eosinophils % (auto) 0.4 %; Hematocrit (blood only) 42.8 % (37.0-47.0); Hemoglobin 14.8 g/dl (12.0-16.0); Immature Granulocytes # (auto) 0.11 K/uL (0.01-0.20); Immature Granulocytes % (auto) 1.4 %; Lymphocytes # (auto) 1.37 K/uL (1.20-3.40); Lymphocytes % (auto) 17.1 %; Mean Corpuscular Hemoglobin 32.5 pg (25.0-34.0); Mean Corpuscular Hgb Conc 34.6 g/dL (32.0-36.0); Mean Corpuscular Volume 94.1 fL (80.0-100.0); Mean Platelet Volume 10.6 fL (9.4-12.4); Monocytes # (auto) 0.64 K/uL (0.11-0.59); Neutrophils % (auto) 72.4 %; Platelet Count 189 K/uL (130-400); RDW Coefficient of Variation 12.4 % (11.5-14.5); RDW Standard Deviation 42.5 fL (36.4-46.3); Red Blood Count 4.55 M/uL (4.20-5.40); White Blood Count 8.01 K/ul (4.8-10.8)
[2024-08-14 18:14] LABS: Albumin Level 4.4 gm/dl (3.4-5.0); Anion Gap 11 (3-11); Bilirubin,Total 1.2 mg/dl (0.2-1.0); Calcium 9.5 mg/dl (8.6-10.3); Carbon Dioxide 28 mmol/L (21-32); Chloride 96 mmol/L (98-107); Potassium 4.6 mmol/L (3.5-5.1); Sodium 135 mmol/L (136-145)
[2024-08-14 18:20] LABS: Alanine Aminotransferase 23 U/L (7-52); Albumin Globulin Ratio 1.5 (0.9-2); Alkaline Phosphatase 74 U/L (34-104); Aspartate Aminotransferase 21 U/L (13-39); BUN Creatinine Ratio 23.8 (10-20); Blood Urea Nitrogen 19 mg/dl (6-23); Est GFR (African American) 76.8 ml/min; Est GFR (Non-African American) 66.3 ml/min; Globulin 2.9 gm/dl (2.5-4.0); Glucose 256 mg/dl (70-99(Fasting)); Total Protein 7.3 gm/dl (6.0-8.3)
[2024-08-14] MEDS: MoRPHine SULFATE 2 MG/ML CARP IV PRN (18:22)
[2024-08-14 18:46] LABS: INR 3.1 (0.9-1.1); Partial Thromboplastin Ratio 1.4; Partial Thromboplastin Time 37 Seconds (21-31); Prothrombin Time 30.6 Seconds (9.0-12.0)
[2024-08-14] MEDS: OPTIRAY 320 100ml IV ONE (19:01)
[2024-08-14 19:56] LABS: Troponin I High Sensitivity 9.7 pg/ml (0-14)
--- NOTE | 2024-08-14 20:19 | CT Scan Report ---
Exam(s): CT HEAD Without Contrast EXAM: CT Head Without Intravenous Contrast CLINICAL HISTORY: Reason for exam: fall, coumadin. TECHNIQUE: Axial computed tomography images of the head/brain without intravenous contrast. CTDI is 38.1 mGy and DLP is 2799.95 mGy-cm. Automated exposure control was utilized for the study. A dose lowering technique was utilized adhering to the principles of ALARA. COMPARISON: No relevant prior studies available. FINDINGS: Brain: No hemorrhage. No apparent acute cortical infarct. No mass lesion or midline shift. Senescent changes. Ventricles: No hydrocephalus. Bones/joints: No acute fracture. Soft tissues: Unremarkable. Sinuses: No acute sinusitis. Mastoid air cells: No mastoid effusion. Orbits: No acute process. IMPRESSION: No acute intracranial process. Electronically signed by: Anita Ko M.D. 08/14/24 20:18 PM
--- NOTE | 2024-08-14 20:51 | CT Scan Report ---
Exam(s): CT ABDOMEN + PELVIS With Contrast IV Amt: 90 ml optiray 320 EXAM: CT Abdomen and Pelvis With Intravenous Contrast CLINICAL HISTORY: Reason for exam: fall, flank pain. TECHNIQUE: Axial computed tomography images of the abdomen and pelvis with intravenous contrast. CTDI is 38.1 mGy and DLP is 2799.95 mGy-cm. Automated exposure control was utilized for the study. A dose lowering technique was utilized adhering to the principles of ALARA. CONTRAST: Patient received 90 ml optiray 320 of IV contrast COMPARISON: No relevant prior studies available. FINDINGS: Heart: Cardiomegaly. ABDOMEN: Liver: Unremarkable. Gallbladder and bile ducts: Cholecystectomy. Pancreas: Unremarkable. Spleen: Unremarkable. Adrenals: Unremarkable. 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 Left renal cyst. Probable cyst in the right kidney. No urolithiasis. Stomach and bowel: Stomach is underdistended and not well assessed. Colonic diverticulosis without diverticulitis. PELVIS: Appendix: Appendix not visualized. Bladder: Unremarkable. Reproductive: Hysterectomy. ABDOMEN and PELVIS: Intraperitoneal space: No hemoperitoneum. Bones/joints: No acute fracture. Soft tissues: Fat-containing left inguinal hernia. Vasculature: No acute process. IMPRESSION: 1. No acute internal traumatic findings. 2. 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 There is a broader differential. Electronically signed by: Anita Ko M.D. 08/14/24 20:50 PM
--- NOTE | 2024-08-14 20:55 | CT Scan Report ---
Exam(s): CT CHEST With Contrast IV Amt: 90ML OPITRAY 320 EXAM: CT Chest With Intravenous Contrast CLINICAL HISTORY: Reason for exam: fall, flank pain. TECHNIQUE: Axial computed tomography images of the chest with intravenous contrast. CTDI is 27.95 mGy and DLP is 846.55 mGy-cm. Automated exposure control was utilized for the study. A dose lowering technique was utilized adhering to the principles of ALARA. CONTRAST: Patient received 90ML OPITRAY 320 of IV contrast COMPARISON: 05/05/18. FINDINGS: Lungs: No consolidation or overt edema. Mosaic attenuation in the lungs as before Pleural space: No pneumothorax. No effusion. Heart: Cardiomegaly. Bones/joints: No acute fracture. Soft tissues: Scar or nodule in the right breast measuring 18 mm, appears more focal masslike on current exam. Vasculature: Unremarkable. No thoracic aortic aneurysm. Intraperitoneal space: Abdominal findings as described in the dedicated report of the abdomen. IMPRESSION: 1. No internal traumatic findings. 2. Scar or nodule in the right breast measuring 18 mm. Electronically signed by: Anita Ko M.D. 08/14/24 20:54 PM
--- OUTSIDE RECORDS SUMMARY | 2024-08-14 21:25 | External Medical Summary | Summary of Care ---
Author Name Unknown Organization [facility] Address [address] [facility] [place] [address] Phone [phone] Care Team Providers Care Rod Puller Name Role Phone Marycruz Luciano PA-C Primary Care Provider [phone] Reason for Visit * Reason Comments eRx-Medication Refill Encounter Details Date Type Department Care Team (Late st Contact Info) Description 07/19/2024 Refill Family Practice [facility] [place] [address] [facility] [place] [address] Marycruz Luciano PA-C [address] [facility] [place] [address] Encounter for long-term (current) use of medications*; Type 2 diabetes mellitus with hemoglobin A1c goal of less than 8.0% ([facility]) Allergies Active Allergy Reactions Criticality Noted Date Comments Adhesive Tape Itching,Rash 10/17/2016 Bimatoprost 05/14/2023 Celecoxib 10/16/2011 Codeine 12/31/2001 sick to stomach Latanoprost 05/14/2023 Sulfa Antibiotics 08/03/2005 Timolol 05/14/2023 Travoprost 05/14/2023 Dulaglutide Muscle pain 10/11/2021 documented as of this encounter (statuses as of 07/22/2024) Medications Medication Sig Dispensed Refills Start Date End Date Status GLUCOSAMINE 1500 COMPLEX PO CAPS one daily Active ALPHAGAN P 0.1 % OP SOLN as directed Active CALCIUM 500 +D 500-400 MG-UNIT PO TABS 1 daily Active Keno 3 1000 MG CAPS Take 1,000 mg by mouth 2 times a day. 05/24/2015 Active Magnesium 200 MG Tablet Take 2 Tablets by mouth in the morning and 2 Tablets at noon and 2 Tablets before bedtime. Active Blood Glucose Monitoring Suppl (ProFundComTOUCH VERIO) w/Device KITIndications:Ty pe 2 diabetes mellitus with hemoglobin A1c goal of less than 8.0% (HCC) Use up to 4 times a day E11.9 1 Kit 04/15/2019 Active MotionboxTouch Renae Lancets 33GIndications:Ty pe 2 diabetes mellitus with hemoglobin A1c goal of less than 8.0% (HCC) Use to test blood sugars once daily Dx E11.9 100 Each 3 02/20/2021 Active Potassium Chloride Kyleigh ER 10 MEQ Oral Tablet Extended ReleaseIndication s:HTN, goal below 140/90 One on days using furosemide 10 Tablet 11 01/30/2022 Active Protecode In Vitro Strip (Glucose Blood)Indications :Type 2 diabetes mellitus with hemoglobin A1c goal of less than 8.0% (HCC) Use to test blood sugars once daily Dx E11.9 100 Strip 3 02/19/2023 Active LORazepam 1 MG Oral Tablet (Ativan)Indicatio ns:Generalized anxiety disorder take 1 tablet by mouth at bedtime if needed for anxiety 30 Tablet 04/09/2023 Active Ipratropium-Albut loreta 0.5-2.5 (3) MG/3ML Inhalation Solution (Duoneb)Indicatio ns:Bronchitis, complicated Inhale 3 mL via nebulizer in the morning and 3 mL at noon and 3 mL before bedtime. 150 mL 5 05/14/2023 Active Additional Information Patient taking differently:3 mL [id number] PRN, Reported on 10/03/2023 Pantoprazole Sodium 40 MG Oral Tablet Delayed Release (Protonix) take 1 tablet by mouth every morning 30 MINUTES BEFORE THE FIRST MEAL.DO NOT CRUSH,SPLIT OR CHEW TABLET 30 Tablet 5 07/10/2023 Active Additional Information Patient not taking.Reported on 11/27/2023 Spironolactone 25 MG Oral Tablet (Aldactone)Indica tions:Persistent atrial fibrillation (HCC),Hypertensiv e heart disease without heart failure,HTN, goal below 140/90 TAKE 1/2 TABLET BY MOUTH DAILY 45 Tablet 3 12/24/2023 Active Levothyroxine Sodium 137 MCG Oral TabletIndications :Hypothyroidism due to acquired atrophy of thyroid take 1 tablet by mouth once daily AT LEAST 30 MINUTES PRIOR TO BREAKFAST OR OTHER MEDS 90 Tablet 2 03/25/2024 Active Losartan Potassium 100 MG Oral Tablet (Cozaar)Indicatio ns:HTN, goal below 140/90 TAKE 1 TABLET BY MOUTH ONCE DAILY 90 Tablet 1 05/20/2024 Active Warfarin Sodium 5 MG Oral Tablet (Jantoven)Indicat ions:Paroxysmal atrial fibrillation (HCC) TAKE 1/2 TO 1 TABLET (2.5MG TO 5MG) BY MOUTH DAILY DIRECTED BY COUMADIN CLINIC 90 Tablet 1 06/03/2024 Active Furosemide 20 MG Oral Tablet (Lasix)Indication s:HTN, goal below 140/90,Localized edema TAKE 1 TABLET BY MOUTH EVERY MORNING 90 Tablet 1 06/23/2024 Active metFORMIN HCl ER 500 MG Oral Tablet Extended Release 24 Hour (Glucophage XR)Indications:Ty pe 2 diabetes mellitus with hemoglobin A1c goal of less than 8.0% (HCC) TAKE 2 TABLETS BY MOUTH TWICE A DAY 360 Tablet 07/21/2024 Active metFORMIN HCl ER 500 MG Oral Tablet Extended Release 24 Hour (Glucophage XR)Indications:Ty pe 2 diabetes mellitus with hemoglobin A1c goal of less than 8.0% (HCC) TAKE 2 TABLETS BY MOUTH TWICE A DAY 360 Tablet 1 02/15/2024 07/21/20 24 Discontinued documented as of this encounter (statuses as of 07/22/2024) Active Problems Problem Noted Date Diagnosed Date Body mass index (BMI) of 45.0 to 49.9 in adult 1 12/14/2022 Overview: Per Obesity protocol Type 2 diabetes mellitus with peripheral vascula r disease 10/10/2021 Primary open-angle glaucoma, bilateral, moderate stage 07/18/2021 Anxiety, generalized 07/18/2021 Persistent atrial fibrillation 02/27/2019 Peripheral vascular disease 02/27/2019 Lung nodule 10/07/2017 Type 2 diabetes mellitus wit h hemoglobin A1c goal of less than 8.0% 07/30/2017 Mitral regurgitation 10/05/2015 Dyslipidemia, goal LDL below 130 11/21/2009 Overview: Per Lipid Taxonomy. HYPERTENSIVE HEART DZ 09/29/2009 Overview: Per Heart Failure Taxonomy Protocol. 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 0 to 44.9 in adult 04/11/2021 08/17/2021 Overview: Per Obesity protocol - Per Obesity protocol - Per Obesity protocol - - Body mass index (BMI) of 45. 0 to 49.9 in adult 10/10/2020 04/13/2021 Overview: Per Obesity protocol - Per Obesity protocol - - Body mass index (BMI) of 40. 0 to 44.9 in adult 07/13/2019 10/13/2020 Overview: Per Obesity protocol - - Body mass index (BMI) of 45. 0 to 49.9 in adult 03/09/2019 07/16/2019 Overview: Per Obesity protocol #1 - Bronchiectasis, uncomplicated 02/27/2019 10/10/2021 Body mass index (BMI) of 40. 0 to 44.9 in adult 11/10/2018 03/11/2019 Overview: Per Obesity protocol #1 Cough 12/03/2017 11/12/[address] lung screening 12/03/2017 0 04/09/2019 Abnormal glucose 04/10/2017 10/07/2017 Atrial fibrillation 11/02/2015 10/24/20 18 Asthma with severity to be determined 05/29/2010 11/11/2013 Overview: Per Asthma Taxonomy ICD-10 update of inactive term Obesity, morbid (more than 1 00 lbs over ideal weight or BMI > 40) 02/28/2010 10/07/2017 Overview: Per Obesity Taxonomy ICD-10 update of inactive term Dyslipidemia, goal to be determined 03/08/2009 10/26/2009 Overview: Per Lipid Taxonomy Nocturia 03/14/2006 10/07/2017 Urgency of urination 03/14/2006 017 Urinary frequency 03/14/2006 07/30/2017 Cyst of kidney, acquired 03/14/2006 Hydronephrosis 03/14/2006 10/07/2017 ABDOMINAL PAIN, OTHER SPECIFIED SITE 03/14/2006 07/30/2017 DIVERTICULITIS OF COLON 03/12/200607/03 LIPOMA SKIN NEC 11/27/2005 04/09/2019 Mixed dyslipidemia 02/14/2005 9 Overview: Per Lipid Taxonomy. Gastroesophageal reflux dise ase with esophagitis 02/14/2005 10/10/2021 Special screening for malign ant neoplasms, colon 05/26/2003 02/09/2009 Overview: Resolved per Screening Diagnosis Protocol #6 OBESITY, UNSPECIFIED 05/20/2003 010 Overview: Per Obesity Taxonomy COPD with emphysema 07/22/2002 11/19/20 13 GEMMA HYPERTEN HRT DIS NOS 06/15/2002 Overview: Per Heart Failure Taxonomy Protocol. Asthma, allergic 05/29/2010 documented as of this encounter (statuses as of 07/22/2024) Immunizations Name Administration Dates Next Due Pneumococcal Conjugate Vacc, 13 Valent (Prevnar) 07/16/2016 Pneumococcal Conjugate Vacci ne, 7 Valent 10/06/2002 Pneumococcal Polysaccharide PPV23 (Pneumovax) 11/12/2018 Seasonal Influenza, Split, I IV3, With Preserve, Inj 09/17/2006,09/21/2005,09/21/2003,10/06,09/13/1997 TDAP (age 10 and older)(Boostrix) 07/07/2015 documented as of this encounter Social History Tobacco Use Types Packs/Day Years Used Date Smoking Tobacco: Never Smokeless Tobacco: Never Alcohol Use Standard Drinks/Week Comments No 0 (1 standard drink = 0.6 oz pur e alcohol) PHQ-2 Answer Date Recorded PHQ Adult Total Score 0 05/14/2023 Hunger Vital Sign Answer Date Recorded Within the past 12 months, y ou worried that your food would run out before you got the money to buy more. Never true 05/14/20 23 Within the past 12 months, t he food you bought just didn't last and you didn't have money to get more. Never true 05/14/2023 Sex and Gender Information Value Date Recorded Sex Assigned at Female 02/27/2019 2:50 PM EDT Gender Identity Female 02/27/2019 2:50 PM EDT Sexual Orientation Straight 02/27/2019 2: 50 PM EDT Job Start Date Occupation Industry Not on file Not on file Not on file documented as of this encounter Miscellaneous Notes * Telephone Encounter - Yolette Alberts - 07/22/2024 6:10 PM EDT Received message from [facility] regarding patient needing labs. Patient was notified. Successfully contacted patient and provided [facility] message. * Telephone Encounter - Aureliano Morataya [facility] - 07/21/2024 12:38 PM EDTSigned Prescriptions: Disp Refills metFORMIN HCl ER 500 MG Oral Tablet Extend*360 Ta*0 Sig: TAKE 2 TABLETS BY MOUTH TWICE A DAYAuthorizing Provider: MARYCRUZ LUCIANO [place] User: AURELIANO KAM------ * Telephone Encounter - Aureliano Morataya [facility] - 07/21/2024 12:37 PM EDT Provided 90 days supply with 0 refill(s) until upcoming appointment. Per refill protocol patient should have Lipid panel on file within past year. Reviewed AMP report, Care Gaps/Health Maintenance, medications list, and for any routine labs typically ordered for this patient. Lab orders placed. Please contact patient to advise of labs ordered for blood draw. Fasting is not required. Advise toobtain labs before her scheduled office visit 09/01/2024. Thank You, Aureliano Kam [facility] Clinical Pharmacist [facility] ([facility]) 07/21/2024, 12:37 PM * Telephone Encounter - Aureliano Morataya [facility] - 07/21/2024 12:36 PM EDT Pending Prescriptions: Disp Refills metFORMIN HCl ER 500 MG Oral Tablet Exten*360 Ta*0 Sig: TAKE 2 TABLETS BY MOUTH TWICE A DAY Last Visit: 11/27/2023 (in office), Visit date not found (telemedicine) Next Visit: 09/01/2024 If no future appointments scheduled, and last appointment is greater than a year ago, please schedule patient for a follow-up appointment Last date the medication was ordered: 02/15/24 Pharmacy: [id number] Is this request for a controlled substance? No Urine Drug Screen:No results found. However, due to the size of the patient record, not all encounters were searched. Please check Results Review for a complete set of results. Patient Phone Numbers Labs: Lab Results Component Value Date/Time CREAT 0.9 04/22/2024 12:07 PM CREAT 0.9 04/22/2024 12:07 PM CREAT 0.7 11/07/2020 02:33 PM POTASSIUM 4.7 04/22/2024 12:07 PM POTASSIUM 4.7 04/22/2024 12:07 PM POTASSIUM 4.9 11/07/2020 02:33 PM TSH 3.17 04/22/2024 12:07 PM TSH 0.73 09/07/2020 12:24 PM LDLCALC 90 06/18/2023 09:01 AM LDLCALC 114 09/07/2020 12:25 PM LDLDIRECT NOT APPLICABLE 09/07/2020 12:25 PM LDLDIRECT 99 04/11/2011 03:22 PM ALT 24 04/22/2024 12:07 PM ALT 37 (H) 09/07/2020 12:25 PM HGBA1C 8.6 (H) 04/22/2024 12:07 PM HGBA1C 7.3 (H) 06/30/2019 03:12 PM * Telephone Encounter - Interface, E-Rx Ss Inbound - 07/21/2024 12:18 PM EDT Pending Prescriptions: Disp Refills metFORMIN HCl ER 500 MG Oral Tablet Extend*360 Ta*0 Sig: TAKE 2TABLETS BY MOUTH TWICE A DAY documented in this encounter Plan of Treatment Upcoming Encounters Date Type Department Care Team (Late st Contact Info) Description 09/01/2024 11:00 AM EDT Office Visit Family Practice [facility] [address] [facility] [place] [address] Marycruz Luciano PA-C [address] [facility] [place], [place] [address] 09/02/2024 5:30 PM EDT [facility] Pharm[facility], [place] [address] [address] [facility] [address] [facility] [address] [place] [address] 09/08/2024 11:00 AM EDT Office Visit Cardiology, [facility] [address] [place] [address] Macy Denney PA-C [address] [place] [place] [address] Scheduled Orders Name Type Priority Associated Diagnoses Orde r Schedule LIPID PANEL WITH DIRECT LDL IF TG IS HIGH Lab Routine Encounter for long-term (current) use of medications Expected: 07/21/2024 (Approximate), Expires: 07/21/2025 Health Maintenance Due Date Last Done Comments Zoster Vaccines (1 of 2) 1987 Adult Wellness Visit 01/07/2016 01/07/2015 DXA Scan 09/21/2021 09/21/2014, 09/02, 01/30/2007 COVID-19 Vaccine ( season) 2023 Depression Screening 05/14/2024 05/14/2023, 07/30/2017 (Discussed) Diabetic Foot Exam 05/14/2024 05/14/2023, 1 01/13/2018, 10/07/2017 Albumin/Creatinine Ratio 06/18/2024 06/18/2023, 05/02 Influenza Vaccine (FLU shot) (#1) 2024 07/30/2017 (Unable to do), 09/17/2006, 09/21/2005, Additional history exists Diabetic Eye Exam 09/23/2024 09/23/2023, , 02/06/2013, Additional history exists HbA1c 10/23/2024 04/22/2024, 06/01, 11/08/2022, Additional history exists TSH 04/22/2025 04/22/2024, 11/02, 11/08/2022, Additional history exists DTaP,Tdap,and Td Vaccines (2 - Td or Tdap) 07/07/2025 07/07/2015 Pneumococcal Vaccine: 65+ Years Completed 11/12/2018, 07/16/2016 HPV (Gardasil) Vaccine Aged Out No lo nger eligible based on patient's age to complete this topic Hepatitis B Vaccine Aged Out No longe r eligible based on patient's age to complete this topic MENINGOCOCCAL (MENACTRA/MENVEO) Aged Out No longer eligible based on patient's age to complete this topic documented as of this encounter Medical Devices Not on filedocumented as of this encounter Visit Diagnoses Diagnosis Encounter for long-term (current) use of medications- Primary Encounter for long-term (current) use of other medications Type 2 diabetes mellitus with hemoglobin A1c goal of less than 8.0% (HCC) documented in this encounter Care Teams Rod Puller Relationship Specialty Start Date End Date [facility] [place]zma [address] [place] [address] PCP - General Physician Compliance Advisor 01/20/19 documented as of this encounter
--- OUTSIDE RECORDS SUMMARY | 2024-08-14 21:25 | External Medical Summary | Summary of Care ---
Author Name Unknown Organization [facility] Address [address] [facility] [place] [address] Phone [phone] Care Team Providers Care Atomic Physics Professor Name Role Phone Marycruz Luciano PA-C Primary Care Provider [phone] Reason for Visit * Reason Onset Date Comments Durable Medical Equipment 07/15/2024 INR Ho me Monitor Encounter Details Date Type Department Care Team (Late st Contact Info) Description 07/15/[address] [address] Alisia Morgan, [facility] [address] [place] [address] Durable Medical Equipment (INR Home Monitor) Allergies Active Allergy Reactions Criticality Noted Date Comments Adhesive Tape Itching,Rash 10/17/2016 Bimatoprost 05/14/2023 Celecoxib 10/16/2011 Codeine 12/31/2001 sick to stomach Latanoprost 05/14/2023 Sulfa Antibiotics 08/03/2005 Timolol 05/14/2023 Travoprost 05/14/2023 Dulaglutide Muscle pain 10/11/2021 documented as of this encounter (statuses as of 07/16/2024) Medications Medication Sig Dispensed Refills Start Date End Date Status GLUCOSAMINE 1500 COMPLEX PO CAPS one daily Active ALPHAGAN P 0.1 % OP SOLN as directed Active CALCIUM 500 +D 500-400 MG-UNIT PO TABS 1 daily Active Macfarlan 3 1000 MG CAPS Take 1,000 mg by mouth 2 times a day. 05/24/2015 Active Magnesium 200 MG Tablet Take 2 Tablets by mouth in the morning and 2 Tablets at noon and 2 Tablets before bedtime. Active Blood Glucose Monitoring Suppl (Indelsul VERGIVVER) w/Device KITIndications:Type 2 diabetes mellitus with hemoglobin A1c goal of less than 8.0% (HCC) Use up to 4 times a day E11.9 1 Kit 04/15/2019 Active AKSEL GROUPTouch Renae Lancets 33GIndications:Type 2 diabetes mellitus with hemoglobin A1c goal of less than 8.0% (HCC) Use to test blood sugars once daily Dx E11.9 100 Each 3 02/20/2021 Active Potassium Chloride Kyleigh ER 10 MEQ Oral Tablet Extended ReleaseIndications: HTN, goal below 140/90 One on days using furosemide 10 Tablet 11 01/30/2022 Active AKSEL GROUPTouch [employer] In Vitro Strip (Glucose Blood)Indications:T ype 2 diabetes mellitus with hemoglobin A1c goal of less than 8.0% (HCC) Use to test blood sugars once daily Dx E11.9 100 Strip 3 02/19/2023 Active LORazepam 1 MG Oral Tablet (Ativan)Indications :Generalized anxiety disorder take 1 tablet by mouth at bedtime if needed for anxiety 30 Tablet 04/09/2023 Active Ipratropium-Albuter ol 0.5-2.5 (3) MG/3ML Inhalation Solution (Duoneb)Indications :Bronchitis, complicated Inhale 3 mL via nebulizer in the morning and 3 mL at noon and 3 mL before bedtime. 150 mL 5 05/14/2023 Active Additional Information Patient taking differently:3 mL [id number] PRN, Reported on 10/03/2023 Pantoprazole Sodium 40 MG Oral Tablet Delayed Release (Protonix) take 1 tablet by mouth every morning 30 MINUTES BEFORE THE FIRST MEAL.DO NOT CRUSH,SPLIT OR CHEW TABLET 30 Tablet 5 07/10/2023 Active Additional Information Patient not taking.Reported on 11/27/2023 Spironolactone 25 MG Oral Tablet (Aldactone)Indicati ons:Persistent atrial fibrillation (HCC),Hypertensive heart disease without heart failure,HTN, goal below 140/90 TAKE 1/2 TABLET BY MOUTH DAILY 45 Tablet 3 12/24/2023 Active metFORMIN HCl ER 500 MG Oral Tablet Extended Release 24 Hour (Glucophage XR)Indications:Type 2 diabetes mellitus with hemoglobin A1c goal of less than 8.0% (HCC) TAKE 2 TABLETS BY MOUTH TWICE A DAY 360 Tablet 1 02/15/2024 Active Levothyroxine Sodium 137 MCG Oral TabletIndications:H ypothyroidism due to acquired atrophy of thyroid take 1 tablet by mouth once daily AT LEAST 30 MINUTES PRIOR TO BREAKFAST OR OTHER MEDS 90 Tablet 2 03/25/2024 Active Losartan Potassium 100 MG Oral Tablet (Cozaar)Indications :HTN, goal below 140/90 TAKE 1 TABLET BY MOUTH ONCE DAILY 90 Tablet 1 05/20/2024 Active Warfarin Sodium 5 MG Oral Tablet (Jantoven)Indicatio ns:Paroxysmal atrial fibrillation (HCC) TAKE 1/2 TO 1 TABLET (2.5MG TO 5MG) BY MOUTH DAILY DIRECTED BY COUMADIN CLINIC 90 Tablet 1 06/03/2024 Active Furosemide 20 MG Oral Tablet (Lasix)Indications: HTN, goal below 140/90,Localized edema TAKE 1 TABLET BY MOUTH EVERY MORNING 90 Tablet 1 06/23/2024 Active documented as of this encounter (statuses as of 07/16/2024) Active Problems Problem Noted Date Diagnosed Date [...] as of this encounter (statuses as of 07/16/2024) Resolved Problems Problem Noted Date Diagnosed Date [...] as of this encounter (statuses as of 07/16/2024) Immunizations Name Administration Dates Next Due Pneumococcal [...] encounter Miscellaneous Notes * Telephone Encounter - Lamar Holden RPh - 07/16/2024 7:35 AM EDT Order placed on for [employer] Home INR monitor. Lamar Holden PharmD, BCACP Clinical Pharmacist Medication Therapy Disease Management 07/16/2024, 7:35 AM * Telephone Encounter - Alisia Morgan RPh - 07/15/2024 2:24 PM EDT Medication Therapy Disease Management - Anticoagulation Patient: Lola Escobedo | : 1935 Called James at [phone] and spoke to don Bai to check on status of the INR home machineapplication since pt reported no update from [facility] during today's inperson fingerstick INR appt. Bhumika [facility] and spoke to [place] on 07/03/2024, and Bhumika was informed that under pt's insurance policy any DME would need to [facility]. Will f/u. Alisia (Yareli) Becky Morgan, [facility] PGY1 Print Room Worker Medication Therapy Management Clinic 07/15/2024 2:34 PM documented in this encounter Plan of Treatment Upcoming Encounters Date Type Department Care Team (Late st Contact Info) Description 09/01/2024 11:00 AM EDT Office Visit Family [facility] [address] [place] [address] Marycruz Luciano, PAIndira [address] [place] [address] 09/02/2024 5:30 PM EDT [facility]tico[facility], [place] [address] [facility] [address] [facility] [address] [place] [address] 09/08/2024 11:00 AM EDT Office Visit Cardiology, [facility] [address] [place] [address] Macy Denney PA-C [address] [place] [address] Health Maintenance Due Date Last Done Comments [...] as of this encounter Visit Diagnoses Diagnosis Persistent atrial fibrillation (HCC)- Primary Atrial fibrillation Lung nodule Solitary pulmonary nodule documented in this encounter Care Teams Atomic Physics Professor Relationship Specialty Start Date End Date Ankita March AGUSTINA Ledezma [address] [place] [address] PCP - General Physician Patch Driller 01/20/19 documented as of this encounter"
--- OUTSIDE RECORDS SUMMARY | 2024-08-14 21:25 | External Medical Summary | Summary of Care ---
Author Name Unknown Organization [facility] Address [address] [place] [facility] [place] [place] [address] Phone [phone] Care Team Providers Care Production Cell Leader Name Role Phone Marycruz Luciano PA-C Primary Care Provider [phone] Reason for Visit * Reason Onset Date Comments Durable Medical Equipment 07/15/2024 INR Ho me Monitor Encounter Details Date Type Department Care Team (Late st Contact Info) Description 07/15/[address] [address] Alisia Morgan, [facility] [address] [place] [address] Durable Medical Equipment (INR Home Monitor) Allergies Active Allergy Reactions Criticality Noted Date Comments Adhesive Tape Itching,Rash 10/17/2016 Bimatoprost 05/14/2023 Celecoxib 10/16/2011 Codeine 12/31/2001 sick to stomach Latanoprost 05/14/2023 Sulfa Antibiotics 08/03/2005 Timolol 05/14/2023 Travoprost 05/14/2023 Dulaglutide Muscle pain 10/11/2021 documented as of this encounter (statuses as of 07/21/2024) Medications Medication Sig Dispensed Refills Start Date End Date Status GLUCOSAMINE 1500 COMPLEX PO CAPS one daily Active ALPHAGAN P 0.1 % OP SOLN as directed Active CALCIUM 500 +D 500-400 MG-UNIT PO TABS 1 daily Active [place] 3 1000 MG CAPS Take 1,000 mg by mouth 2 times a day. 05/24/2015 Active Magnesium 200 MG Tablet Take 2 Tablets by mouth in the morning and 2 Tablets at noon and 2 Tablets before bedtime. Active Blood Glucose Monitoring Suppl (Amind VERAdcrowd retargeting) w/Device KITIndications:Type 2 diabetes mellitus with hemoglobin A1c goal of less than 8.0% (HCC) Use up to 4 times a day E11.9 1 Kit 04/15/2019 Active SwoopoTouch Renae Lancets 33GIndications:Type 2 diabetes mellitus with hemoglobin A1c goal of less than 8.0% (HCC) Use to test blood sugars once daily Dx E11.9 100 Each 3 02/20/2021 Active Potassium Chloride Kyleigh ER 10 MEQ Oral Tablet Extended ReleaseIndications: HTN, goal below 140/90 One on days using furosemide 10 Tablet 11 01/30/2022 Active SwoopoTouch iKoa In Vitro Strip (Glucose Blood)Indications:T ype 2 [...] Active Additional Information Patient taking differently:3 mL [id number] PRN, Reported on 10/03/2023 Pantoprazole Sodium 40 [...] as of this encounter (statuses as of 07/21/2024) Active Problems Problem Noted Date Diagnosed Date [...] as of this encounter (statuses as of 07/21/2024) Resolved Problems Problem Noted Date Diagnosed Date [...] as of this encounter (statuses as of 07/21/2024) Immunizations Name Administration Dates Next Due Pneumococcal [...] Notes * Telephone Encounter - Lamar Holden RP - 07/21/2024 8:18 AM EDT Images from the original note were not included. Called James at [phone] option 2 and spoke to Leslee. Per Leslee- there is an insurance discrepancy. They have been unable to contact the patient- [facility] pt call enrollment services at [phone]. Left message for Nata, patient's daughter who had initially asked about this option. Advised her that they need to call [employer] Enrollment services. MyG message also sent- not sure if patient reads these. Lamar Holden PharmD, BRE Clinical Pharmacist Medication Therapy Disease Management 07/21/2024, 9:21 AM * Telephone Encounter - Lamar Holden RP - 07/16/2024 7:35 AM EDT Order placed on for [employer] Home INR monitor. Lamar Holden PharmD, BRE Clinical Pharmacist Medication Therapy Disease Management 07/16/2024, 7:35 AM * Telephone Encounter - Alisia Morgan [facility] - 07/15/2024 2:24 PM EDT Medication Therapy Disease Management - Anticoagulation Patient: Lola Escobedo | : 1935 Called James at [phone] and spoke to agent Bhumika to check on status of the INR home machineapplication since pt reported no update from [employer] during today's inperson fingerstick INR appt. Bhumika reported [employer] contacting [employer] and spoke to Loren on 07/03/2024, and Bhumika was informed that under pt's insurance policy any DME would need to be routed to [facility] for coverage. Will f/u. Alisia (Yareli) Becky Morgan, [facility] PGY1 [place] Hardware Installer Medication Therapy Management Clinic 07/15/2024 2:34 PM documented in this encounter Plan of Treatment Upcoming Encounters Date Type Department Care Team (Late st Contact Info) Description 09/01/2024 11:00 AM EDT Office Visit Family Practice [facility] [address] [facility] [place] [address] Marycruz Luciano PA-C [address] [facility] [place] [address] 09/02/2024 5:30 PM EDT Anticoagulation Pharmacy, [address] [address] [place] [facility] [place] [address] 09/08/2024 11:00 AM EDT Office Visit Cardiology, [facility] [address] [place] [address] Macy Denney PA-C [address] [place] [address] Health Maintenance Due Date Last Done Comments Zoster Vaccines (1 of 2) 1985 Adult Wellness Visit 01/07/2016 01/07/2015 DXA Scan 09/21/2021 09/21/2014, 09/02, 01/30/2007 COVID-19 Vaccine (2022-24 season) 2023 Depression Screening 05/14/2024 05/14/2023, 07/30/2017 [...] nodule documented in this encounter Care Teams Production Cell Leader Relationship Specialty Start Date End Date AnkitaMarch AGUSTINA Ledezma [address] [place] [address] PCP - General Physician Freight Router 01/20/19 documented as of this encounter"
--- OUTSIDE RECORDS SUMMARY | 2024-08-14 21:25 | External Medical Summary | Summary of Care ---
Author Name Unknown Organization [facility] Address [address] [facility] [place] [address] Phone [phone] Care Team Providers Care Skull Splitter Name Role Phone Alvajoshua Marycruz Ledezma PA-C Primary Care Provider [phone] Encounter Details Date Type Department Care Team (Late st Contact Info) Description 07/24/2024 Orders Only PATIENT PORTAL DO NOT DELETE THIS DEPT USED BY [place] [address] Allergies Active Allergy Reactions Criticality Noted Date Comments Adhesive Tape Itching,Rash 10/17/2016 Bimatoprost 05/14/2023 Celecoxib 10/16/2011 Codeine 12/31/2001 sick to stomach Latanoprost 05/14/2023 Sulfa Antibiotics 08/03/2005 Timolol 05/14/2023 Travoprost 05/14/2023 Dulaglutide Muscle pain 10/11/2021 documented as of this encounter (statuses as of 07/24/2024) Medications Medication Sig Dispensed Refills Start Date End Date Status GLUCOSAMINE 1500 COMPLEX PO CAPS one daily Active ALPHAGAN P 0.1 % OP SOLN as directed Active CALCIUM 500 +D 500-400 MG-UNIT PO TABS 1 daily Active [place] 3 1000 MG CAPS Take 1,000 mg by mouth 2 times a day. 05/24/2015 Active Magnesium 200 MG Tablet Take 2 Tablets by mouth in the morning and 2 Tablets at noon and 2 Tablets before bedtime. Active Blood Glucose Monitoring Suppl (EVIIVO VERIO) w/Device KITIndications:Type 2 diabetes mellitus with hemoglobin A1c goal of less than 8.0% (HCC) Use up to 4 times a day E11.9 1 Kit 04/15/2019 Active OneTouch Renae Cline 33GIndications:Type 2 diabetes mellitus with hemoglobin A1c goal of less than 8.0% (HCC) Use to test blood sugars once daily Dx E11.9 100 Each 3 02/20/2021 Active Potassium Chloride Kyleigh ER 10 MEQ Oral Tablet Extended ReleaseIndications: HTN, goal below 140/90 One on days using furosemide 10 Tablet 11 01/30/2022 Active OneTouch Verio In Vitro Strip (Glucose Blood)Indications:T ype 2 [...] Active Additional Information Patient taking differently:3 mL [id number] PRN, Reported on 10/03/2023 Pantoprazole Sodium 40 [...] 12/24/2023 Active Levothyroxine Sodium 137 MCG Oral TabletIndications:H [...] TWICE A DAY 360 Tablet 07/21/2024 Active documented as of this encounter (statuses as of 07/24/2024) Active Problems Problem Noted Date Diagnosed Date [...] as of this encounter (statuses as of 07/24/2024) Resolved Problems Problem Noted Date Diagnosed Date [...] as of this encounter (statuses as of 07/24/2024) Immunizations Name Administration Dates Next Due Pneumococcal Conjugate Vacc, 13 Valent (Prevnar) 07/16/2016 Pneumococcal Polysaccharide PPV23 (Pneumovax) Seasonal Influenza, Split, IIV3, With Preserve, Inj 09/17/2006 TDAP (age 10 and older)(Boostrix) 07/07/2015 documented [...] on file documented as of this encounter Plan of Treatment Upcoming Encounters Date Type Department Care Team (Late st Contact Info) Description 09/01/2024 11:00 AM EDT Office Visit Family Practice [facility] [address] [place] [address] Marycruz Luciano PA-C [address] [place] [address] 09/02/2024 5:30 PM EDT Anticoagulation Pharmacy, [place] [address] [facility] [address] [place], [facility] [address] [facility] [address] 09/08/2024 11:00 AM EDT Office Visit Cardiology, [facility] [address] [place] [address] Macy Denney PA-C [address] [place] [address] Health Maintenance Due Date Last Done Comments [...] Not on filedocumented as of this encounter Care Teams Skull Splitter Relationship Specialty Start Date End Date AnkitaMarch Darien, AGUSTINA [address] [place] [address] PCP - General Physician Credit Front Office Developer 01/20/19 documented as of this encounter
--- OUTSIDE RECORDS SUMMARY | 2024-08-14 21:25 | External Medical Summary | Summary of Care ---
Author Name Unknown Organization [facility] Address [address] [facility] [place] [address] Phone [phone] Care Team Providers Care Wood Car Builder Name Role Phone Marycruz Luciano PA-C Primary Care Provider [phone] Reason for Visit * Reason Comments eRx-Medication Refill Encounter Details Date Type Department Care Team (Late st Contact Info) Description 07/19/2024 Refill Family Practice [facility] [place] [address] [facility] [place] [address] Marycruz Luciano PA-C [address] [facility] [place] [address] Encounter for long-term (current) use of medications*; Type 2 diabetes mellitus with hemoglobin A1c goal of less than 8.0% ([facility]) Allergies Active Allergy Reactions Criticality Noted Date [...] 500-400 MG-UNIT PO TABS 1 daily Active [place] 3 1000 MG CAPS Take 1,000 mg by mouth 2 times a day. 05/24/2015 Active Magnesium 200 MG Tablet Take 2 Tablets by mouth in the morning and 2 Tablets at noon and 2 Tablets before bedtime. Active Blood Glucose Monitoring Suppl (ClubTrader, LLCTOUCH VERIO) w/Device KITIndications:Ty pe 2 diabetes mellitus with hemoglobin A1c goal of less than 8.0% (HCC) Use up to 4 times a day E11.9 1 Kit 04/15/2019 Active TimePadTouch Renae Lancets 33GIndications:Ty pe 2 diabetes mellitus with hemoglobin A1c goal of less than 8.0% (HCC) Use to test blood sugars once daily Dx E11.9 100 Each 3 02/20/2021 Active Potassium Chloride Kyleigh ER 10 MEQ Oral Tablet Extended ReleaseIndication s:HTN, goal below 140/90 One on days using furosemide 10 Tablet 11 01/30/2022 Active [employer] In Vitro Strip (Glucose Blood)Indications :Type 2 [...] Active Additional Information Patient taking differently:3 mL HlwbfvebzM9P PRN, Reported on 10/03/2023 Pantoprazole Sodium 40 [...] encounter Miscellaneous Notes * Telephone Encounter - Aureliano Morataya [facility] - 07/21/2024 12:38 PM EDTSigned Prescriptions: Disp Refills metFORMIN HCl ER 500 MG Oral Tablet Extend*360 Ta*0 Sig: TAKE 2 TABLETS BY MOUTH TWICE A DAYAuthorizing Provider: MARYCRUZ LUCIANO User: AURELIANO KAM------ * Telephone Encounter - Aureliano Morataya [facility] - 07/21/2024 12:37 PM EDT Provided 90 [...] office visit 09/01/2024. Thank You, Aureliano Kam [facility] Clinical Pharmacist [facility] ([facility]) 07/21/2024, 12:37 PM * Telephone Encounter - Aureliano Morataya [facility] - 07/21/2024 12:36 PM EDT Pending Prescriptions: [...] date the medication was ordered: 02/15/24 Pharmacy: [id number] Is this [...] 11:00 AM EDT Office Visit Family Practice [facility] [address] [facility] [place] [address] Marycruz Luciano PA-C [address] [facility] [place] [address] 09/02/2024 5:30 PM EDT Anticoagulation Pharmacy, [place] [address] [place] [address] [facility] [address] [place] [address] 09/08/2024 11:00 AM EDT Office Visit Cardiology, [facility] [address] [place] [address] Macy Denney PA-C [address] [place] [address] Scheduled Orders Name Type Priority Associated Diagnoses [...] (HCC) documented in this encounter Care Teams Wood Car Builder Relationship Specialty Start Date End Date AnkitaMarch AGUSTINA Ledezma [address] [place], [place] [address] PCP - General Physician Behavioral Scientist 01/20/19 documented as of this encounter
--- OUTSIDE RECORDS SUMMARY | 2024-08-14 21:26 | External Medical Summary | Summary of Care ---
Author Name Unknown Organization [facility] Address [address] [facility] [place] [address] Phone [phone] Care Team Providers Care Steam Hammer Operator Name Role Phone AlvajoshuaMarycruz PA-C Primary Care Provider [phone] Reason for Visit * Reason Comments Dosage Adjustment In Person (Anticoag Cl inic) Encounter Details Date Type Department Care Team (Latest Contact Info) Description 07/15/2024 1:50 PM EDT Anticoagulation Pharmacy, [place] [address] [place] [address] [facility] [address] [place] [address] Anticoagulation management encounter*; Persistent atrial fibrillation (HCC); Lung nodule Allergies Active Allergy Reactions Criticality Noted Date Comments Adhesive Tape Itching,Rash 10/17/2016 Bimatoprost 05/14/2023 Celecoxib 10/16/2011 Codeine 12/31/2001 sick to stomach Latanoprost 05/14/2023 Sulfa Antibiotics 08/03/2005 Timolol 05/14/2023 Travoprost 05/14/2023 Dulaglutide Muscle pain 10/11/2021 documented as of this encounter (statuses as of 07/15/2024) Medications Medication Sig Dispensed Refills Start Date End Date Status GLUCOSAMINE 1500 COMPLEX PO CAPS one daily Active ALPHAGAN P 0.1 % OP SOLN as directed Active CALCIUM 500 +D 500-400 MG-UNIT PO TABS 1 daily Active [place] 3 1000 MG CAPS Take 1,000 mg by mouth 2 times a day. 05/24/2015 Active Magnesium 200 MG Tablet Take 2 Tablets by mouth in the morning and 2 Tablets at noon and 2 Tablets before bedtime. Active Blood Glucose Monitoring Suppl ([employer]) w/Device KITIndications:Type 2 diabetes mellitus with hemoglobin A1c goal of less than 8.0% (HCC) Use up to 4 times a day E11.9 1 Kit 04/15/2019 Active eSKY.pl Renae Lancets 33GIndications:Type 2 diabetes mellitus with hemoglobin A1c goal of less than 8.0% ([facility]) Use to test blood sugars once daily Dx E11.9 100 Each 3 02/20/2021 Active Potassium Chloride Kyleigh ER 10 MEQ Oral Tablet Extended ReleaseIndications: HTN, goal below 140/90 One on days using furosemide 10 Tablet 11 01/30/2022 Active [employer] In Vitro Strip (Glucose Blood)Indications:T ype 2 [...] Active Additional Information Patient taking differently:3 mL IwxvxwbbkS6O PRN, Reported on 10/03/2023 Pantoprazole Sodium 40 [...] as of this encounter (statuses as of 07/15/2024) Active Problems Problem Noted Date Diagnosed Date [...] as of this encounter (statuses as of 07/15/2024) Resolved Problems Problem Noted Date Diagnosed Date [...] as of this encounter (statuses as of 07/15/2024) Immunizations Name Administration Dates Next Due Pneumococcal [...] 11:00 AM EDT Office Visit Family Practice [facility] [address] [facility] [place] [address] Ankita Marycruz AAGUSTINA [address] [facility] [place] [address] 09/02/2024 5:30 PM EDT Anticoagulation Pharmacy, [place] [address] [place] [address] [facility] [address] [place] [address] 09/08/2024 11:00 AM EDT Office Visit Cardiology, [facility] [address] [place] [address] Macy Denney PAIndira [address] [place] [address] Health Maintenance Due Date Last Done Comments [...] Not on filedocumented as of this encounter Procedures Procedure Name Priority Date/Time Associated Diagnosis Comments INR FINGERSTICK, POINT OF CARE STAT 07/15/2024 1:52 PM EDT Persistent atrial fibrillation (HCC) documented in this encounter Results * INR FINGERSTICK, POINT OF CARE (07/15/2024 1:52 PM EDT) Fingerstick INR 2.5 INR 1:53 PM EDT LABORATORY [facility] 56-01 Blood 07/15/2024 1:52 PM EDT 07/15/2024 1:53 PM EDT Narrative [facility] - 07/15/2024 1:53 PM EDT Therapeutic ranges for non-operative patients: Prophylaxsis/treatment of DVT: (Range:2.0-3.0) Treatment of pulmonary embolism:(Range:2.0-3.0) Prevention of systemic embolism from: -tissue heart valves -acute myocardial infarction -valvular heart disease -atrial fibrillation (Range: 2.0-3.0) Mechanical prosthetic valves: (Range: 2.5-3.5) [facility] LAB POINT O F CARE TEST DOCKED DEVICE UNSOLICITED RESULTS LABORATORY [place] [facility]-[address] [place], [place] [id number] documented in this encounter Visit Diagnoses Diagnosis Anticoagulation management encounter- Primary Encounter for therapeutic drug monitoring Persistent atrial fibrillation (HCC) Atrial fibrillation Lung nodule Solitary pulmonary nodule documented in this encounter Care Teams Steam Hammer Operator Relationship Specialty Start Date End Date AnkitaMarch Darien, [place] [address] [place] [address] PCP - General Physician Carton Lettering Machine Operator 01/20/19 documented as of this encounter
--- OUTSIDE RECORDS SUMMARY | 2024-08-14 21:26 | External Medical Summary | Summary of Care ---
Author Name Unknown Organization [facility] Address [address] [facility] [place] [address] Phone [phone] Care Team Providers Care Shove Up Name Role Phone AlvajoshuaMarycruz PA-C Primary Care Provider [phone] Reason for Visit * Reason Comments Dosage Adjustment In Person (Anticoag Cl inic) Encounter Details Date Type Department Care Team (Latest Contact Info) Description 07/15/2024 1:50 PM EDT Anticoagulation Pharmacy, [place] [address] [place] [address] [facility] [address] [place] [address] Anticoagulation management encounter*; Persistent atrial fibrillation (HCC); [...] 500-400 MG-UNIT PO TABS 1 daily Active [place] 3 1000 MG CAPS Take 1,000 mg by mouth 2 times a day. 05/24/2015 Active Magnesium 200 MG Tablet Take 2 Tablets by mouth in the morning and 2 Tablets at noon and 2 Tablets before bedtime. Active Blood Glucose Monitoring Suppl (AdvanDx) w/Device KITIndications:Type 2 diabetes mellitus with hemoglobin A1c goal of less than 8.0% (HCC) Use up to 4 times a day E11.9 1 Kit 04/15/2019 Active [employer] Renae Lancets 33GIndications:Type 2 diabetes mellitus with hemoglobin A1c goal of less than 8.0% ([facility]) Use to test blood sugars once daily Dx E11.9 100 Each 3 02/20/2021 Active Potassium Chloride Kyleigh ER 10 MEQ Oral Tablet Extended ReleaseIndications: HTN, goal below 140/90 One on days using furosemide 10 Tablet 11 01/30/2022 Active [employer] In Vitro Strip (Glucose Blood)Indications:T ype 2 [...] Active Additional Information Patient taking differently:3 mL UecyoylfsJ9A PRN, Reported on 10/03/2023 Pantoprazole Sodium 40 [...] on file documented as of this encounter Progress Notes * Lamar Holden RP - 07/15/2024 2:36 PM EDT Agree with plan as documented. I was present and in the exam room for the entirety of the visit. [facility] Clinical Pharmacist 07/15/2024, 2:36 PM * Alisia Morgan RPh - 07/15/2024 1:43 PM EDT Medication Therapy Disease Management - Anticoagulation Patient: Lola Escobedo | : 1935 Subjective Patient-Reported Symptoms: Patient Findings Negatives: Signs/symptoms of thrombosis, Signs/symptoms of bleeding, Change in health, Change in alcohol use, Change in activity, Upcoming invasive procedure, Missed doses, Extra doses, Change in medications, Change in diet/appetite, Bruising Objective Current Warfarin Dose As of 07/15/2024 Warfarin maintenance plan: 5 mg (5 mg x 1) every Mon, Wed, Fri; 2.5 mg (5 mg x 0.5) all other days INR Result As of 07/15/2024 INR goal: 2.0-3.0 INR used for dosin.5 (07/15/2024) Assessment & Plan Warfarin Plan As of 07/15/2024 Full warfarin instructions: 5 mg every Mon, Wed, Fri; 2.5 mg all other days No change documented: Alisia Morgan RPh Next INR check: 09/01/2024 Repeat PT/INR in 7 week(s) Weekly dose: not changed Additional Dosing Information: Description Pt does not drive- does not want GML at this time Pt has not heard back from [employer] as of 07/15 - will f/u I spent a total of 10-19 minutes (exact time 12 mins) on the date of service in preparation, delivery, and documentation of the care provided to Lola Escobedo excluding any time spent in the performance of separately billed services or time spent by another provider/QHP. Alisia (Yareli) Eddie, JoseD, [facility] PGY1 Collar Packer Medication Therapy Management Clinic 07/15/2024 2:03 PM Electronically signed by Lamar Holden [facility] at 07/15/2024 2:36 PM EDT documented in this encounter Plan of Treatment Upcoming Encounters Date Type Department Care Team (Late st Contact Info) Description 09/01/2024 11:00 AM EDT Office Visit Family Practice [facility] [address] [facility] [place] [address] Marycruz Luciano PA-C [address] [facility] [place] [address] 09/02/2024 5:30 PM EDT Anticoagulation Pharmacy, [place] [address] [place] [address] [facility] [address] [place] [address] 09/08/2024 11:00 AM EDT Office Visit Cardiology, [facility] [address] [address] Macy Deneny PAIndira [address] [place] [address] Health Maintenance Due Date Last Done Comments Zoster Vaccines (1 of 2) 1985 Adult Wellness Visit 01/07/2016 01/07/2015 DXA Scan 09/21/2021 09/21/2014, 09/02, 01/30/2007 COVID-19 Vaccine (2022- season) 2023 Depression Screening 05/14/2024 05/14/2023, 07/30/2017 [...] INR 2.5 INR 1:53 PM EDT [facility] Blood 07/15/2024 1:52 PM EDT 07/15/2024 1:53 PM EDT Narrative LABORATORY [facility] 56 - 07/15/2024 1:53 PM EDT Therapeutic ranges for non-operative patients: Prophylaxsis/treatment of DVT: (Range:2.0-3.0) Treatment of pulmonary embolism:(Range:2.0-3.0) Prevention of systemic embolism from: -tissue heart valves -acute myocardial infarction -valvular heart disease -atrial fibrillation (Range: 2.0-3.0) Mechanical prosthetic valves: (Range: 2.5-3.5) [facility] LAB POINT O F CARE TEST DOCKED DEVICE UNSOLICITED RESULTS LABORATORY [place] [address] [place], [place] [id number] documented in this encounter Visit Diagnoses Diagnosis Anticoagulation management encounter- Primary Encounter for therapeutic drug monitoring Persistent atrial fibrillation (HCC) Atrial fibrillation Lung nodule Solitary pulmonary nodule documented in this encounter Care Teams Shove Up Relationship Specialty Start Date End Date Alvamarch AGUSTINA Ledezma [address] [place] [address] PCP - General Physician Retirement Village Manager 01/20/19 documented as of this encounter"
--- OUTSIDE RECORDS SUMMARY | 2024-08-14 21:26 | External Medical Summary | Summary of Care ---
Author Name Unknown Organization [facility] Address [address] [facility] [place] [address] Phone [phone] Care Team Providers Care Calculus Tutor Name Role Phone Marycruz Luciano PA-C Primary Care Provider [phone] Reason for Visit * Reason Comments eRx-Medication Refill Encounter Details Date Type Department Care Team (Late st Contact Info) Description 06/02/2024 Refill Family Practice [facility] [address] [facility] [place] [address] Marycruz Luciano PA-C [address] [facility] [place] [address] Paroxysmal atrial fibrillation (HCC) Allergies Active Allergy Reactions Criticality Noted Date Comments Adhesive Tape Itching,Rash 10/17/2016 Bimatoprost 05/14/2023 Celecoxib 10/16/2011 Codeine 12/31/2001 sick to stomach Latanoprost 05/14/2023 Sulfa Antibiotics 08/03/2005 Timolol 05/14/2023 Travoprost 05/14/2023 Dulaglutide Muscle pain 10/11/2021 documented as of this encounter (statuses as of 06/03/2024) Medications Medication Sig Dispensed Refills Start Date End Date Status GLUCOSAMINE 1500 COMPLEX PO CAPS one daily Active ALPHAGAN P 0.1 % OP SOLN as directed Active CALCIUM 500 +D 500-400 MG-UNIT PO TABS 1 daily Active [place] 3 1000 MG CAPS Take 1,000 mg by mouth 2 times a day. 05/24/2015 Active Magnesium 200 MG Tablet Take 2 Tablets by mouth in the morning and 2 Tablets at noon and 2 Tablets before bedtime. Active Blood Glucose Monitoring Suppl ([employer] VERIO) w/Device KITIndications:Ty pe 2 diabetes mellitus with hemoglobin A1c goal of less than 8.0% (HCC) Use up to 4 times a day E11.9 1 Kit 04/15/2019 Active Decision LensTouch Delrafa Lancets 33GIndications:Ty pe 2 diabetes mellitus with hemoglobin A1c goal of less than 8.0% (HCC) Use to test blood sugars once daily Dx E11.9 100 Each 3 02/20/2021 Active Potassium Chloride Kyleigh ER 10 MEQ Oral Tablet Extended ReleaseIndication s:HTN, goal below 140/90 One on days using furosemide 10 Tablet 11 01/30/2022 Active Furosemide 20 MG Oral Tablet (Lasix)Indication s:HTN, goal below 140/90,Localized edema Take by mouth 1 Tablet in the morning. 90 Tablet 3 07/16/2022 Active Additional Information Patient taking differently:20 mg OralDAILY PRN, Reported on 01/22/2023 Decision LensToPerfecto Mobile In Vitro Strip (Glucose Blood)Indications :Type 2 [...] Active Additional Information Patient taking differently:3 mL [id number] PRN, Reported on 10/03/2023 Pantoprazole Sodium 40 [...] 02/15/2024 Active Levothyroxine Sodium 137 MCG Oral TabletIndications [...] [facility] 90 Tablet 1 06/03/2024 Active Warfarin Sodium 5 MG Oral Tablet (Coumadin)Indicat ions:Paroxysmal atrial fibrillation (HCC) take 1/2 to 1 tablet (2.5mg to 5mg) by mouth daily as directed BY [facility] 90 Tablet 3 04/01/2023 06/03/20 24 Discontinued documented as of this encounter (statuses as of 06/03/2024) Active Problems Problem Noted Date Diagnosed Date [...] as of this encounter (statuses as of 06/03/2024) Resolved Problems Problem Noted Date Diagnosed Date [...] as of this encounter (statuses as of 06/03/2024) Immunizations Name Administration Dates Next Due Pneumococcal [...] encounter Miscellaneous Notes * Telephone Encounter - Antonino Morataya, [facility] - 06/03/2024 8:58 AM EDTSigned Prescriptions: Disp Refills Warfarin Sodium 5 MG Oral Tablet (Jantoven)90 Tab*1 Sig: TAKE 1/2 TO 1 TABLET (2.5MG TO 5MG) BY MOUTH DAILY DIRECTED BY COUMADIN CLINICAuthorizing Provider: MARYCRUZ LUCIANO User: ANTONINO SOLIS documented in this encounter Plan of Treatment Upcoming Encounters Date Type Department Care Team (Late st Contact Info) Description 07/02/2024 11:30 AM EDT Anticoagulation Pharmacy, [place] [address] [place] [address] [place], [facility] [address] [place] [address] 09/08/2024 11:00 AM EDT Office Visit Cardiology, [facility] [address] [facility] [address] [place] [address] Macy Denney PA-C [address] [place] [address] Health Maintenance Due Date Last Done Comments Zoster Vaccines (1 of 2) 1987 DXA Scan 09/21/2021 09/21/2014, 09/02, 01/30/2007 COVID-19 [...] as of this encounter Visit Diagnoses Diagnosis Paroxysmal atrial fibrillation (HCC) Atrial fibrillation documented in this encounter Care Teams Calculus Tutor Relationship Specialty Start Date End Date AnkitaMarch AGUSTINA Ledezma [address] [place] [address] [place] [address] PCP - General Physician Design Printing Machine Set Up Operator 01/20/19 documented as of this encounter
--- OUTSIDE RECORDS SUMMARY | 2024-08-14 21:26 | External Medical Summary | Summary of Care ---
Author Name Unknown Organization [facility] Address [address] [facility] [place] [address] Phone [phone] Care Team Providers Care Revenue Stamp Cutter Name Role Phone Marycruz Luciano PA-C Primary Care Provider [phone] Reason for Visit * Reason Comments eRx-Medication Refill Encounter Details Date Type Department Care Team (Late st Contact Info) Description 05/19/2024 Refill Family Practice [facility] [place] [address] [facility] [place] [address] Marycruz Luciano PA-C [address] [facility] [place] [address] HTN, goal below 140/90 Allergies Active Allergy Reactions Criticality Noted Date Comments Adhesive Tape Itching,Rash 10/17/2016 Bimatoprost 05/14/2023 Celecoxib 10/16/2011 Codeine 12/31/2001 sick to stomach Latanoprost 05/14/2023 Sulfa Antibiotics 08/03/2005 Timolol 05/14/2023 Travoprost 05/14/2023 Dulaglutide Muscle pain 10/11/2021 documented as of this encounter (statuses as of 05/20/2024) Medications Medication Sig Dispensed Refills Start Date End Date Status GLUCOSAMINE 1500 COMPLEX PO CAPS one daily Active ALPHAGAN P 0.1 % OP SOLN as directed Active CALCIUM 500 +D 500-400 MG-UNIT PO TABS 1 daily Active [place] 3 1000 MG CAPS Take 1,000 mg by mouth 2 times a day. 05/24/2015 Active Magnesium 200 MG Tablet Take 2 Tablets by mouth in the morning and 2 Tablets at noon and 2 Tablets before bedtime. Active Blood Glucose Monitoring Suppl ([employer] VERPogoseat) w/Device KITIndications:Ty pe 2 diabetes mellitus with hemoglobin A1c goal of less than 8.0% (HCC) Use up to 4 times a day E11.9 1 Kit 04/15/2019 Active OneTouch Renae Lancets 33GIndications:Ty pe 2 diabetes mellitus [...] differently:20 mg OralDAILY PRN, Reported on 01/22/2023 mention In Vitro Strip (Glucose Blood)Indications :Type 2 diabetes mellitus with hemoglobin A1c goal of less than 8.0% (HCC) Use to test blood sugars once daily Dx E11.9 100 Strip 3 02/19/2023 Active Warfarin Sodium 5 MG Oral Tablet (Coumadin)Indicat ions:Paroxysmal atrial fibrillation (HCC) take 1/2 to 1 tablet (2.5mg to 5mg) by mouth daily as directed BY [facility] 90 Tablet 3 04/01/2023 Active LORazepam 1 MG Oral Tablet (Ativan)Indicatio [...] Active Additional Information Patient taking differently:3 mL [id number] PRN, Reported on 10/03/2023 Pantoprazole Sodium 40 [...] ONCE DAILY 90 Tablet 1 05/20/2024 Active Losartan Potassium 100 MG Oral Tablet (Cozaar)Indicatio ns:HTN, goal below 140/90 take 1 tablet by mouth once daily 90 Tablet 2 08/07/2023 05/20/20 24 Discontinued documented as of this encounter (statuses as of 05/20/2024) Active Problems Problem Noted Date Diagnosed Date [...] as of this encounter (statuses as of 05/20/2024) Resolved Problems Problem Noted Date Diagnosed Date [...] as of this encounter (statuses as of 05/20/2024) Immunizations Name Administration Dates Next Due Pneumococcal [...] encounter Miscellaneous Notes * Telephone Encounter - Philly Bhakta RPh - 05/20/2024 10:09 AM EDTSigned Prescriptions: Disp Refills Losartan Potassium 100 MG Oral Tablet (Coz*90 Tab*1 Sig: TAKE 1 TABLET BY MOUTH ONCE DAILYAuthorizing Provider: MARYCRUZ LUCIANO User: PHILLY BHAKTA------ documented in this encounter Plan of Treatment Upcoming Encounters Date Type Department Care Team (Late st Contact Info) Description 05/26/2024 11:10 AM EDT Anticoagulation Pharmacy, [place] [address] [address] [facility] [address] [address] 09/08/2024 11:00 AM EDT Office Visit Cardiology, [facility] [address] [place] [address] Macy Denney, AGUSTINA [address] [place] [address] Health Maintenance Due Date Last Done Comments Zoster Vaccines (1 of 2) 1987 DXA Scan 09/21/2021 09/21/2014, 09/02, 01/30/2007 COVID-19 Vaccine ( season) 2023 Depression Screening 05/14/2024 05/14/2023, 07/30/2017 (Discussed) Diabetic Foot Exam 05/14/2024 05/14/2023, 1 01/13/2018, 10/07/2017 Albumin/Creatinine Ratio 06/18/2024 06/18/2023, 05/02 Influenza Vaccine (FLU shot) (Season Ended) 2024 07/30/2017 (Unable to do), 09/17/2006, 09/21/2005, Additional history exists Diabetic Eye Exam 09/23/2024 09/23/2023, , 02/06/2013, Additional history exists HbA1c 10/23/2024 04/22/2024, 06/01, 11/08/2022, Additional history exists TSH 04/22/2025 04/22/2024, 11/02, 11/08/2022, Additional history exists DTaP,Tdap,and Td Vaccines (2 - Td or Tdap) 07/07/2025 07/07/2015 Pneumococcal Vaccine: 65+ Years Completed 11/12/2018, 07/16/2016 GARDASIL-HPV IMMUNIZATION SERIES Aged Out No longer eligible based on patient's age to complete this topic Hepatitis B Aged Out No longer eligi ble based on patient's age to complete this topic MENINGOCOCCAL (MENACTRA/MENVEO) Aged Out No longer eligible based on patient's age to complete this topic documented as of this encounter Medical Devices Not on filedocumented as of this encounter Visit Diagnoses Diagnosis HTN, goal below 140/90 Unspecified essential hypertension documented in this encounter Care Teams Revenue Stamp Cutter Relationship Specialty Start Date End Date AnkitaMarch AGUSTINA Ledezma [address] [place], [place] [address] PCP - General Physician Director Pediatric 01/20/19 documented as of this encounter
--- OUTSIDE RECORDS SUMMARY | 2024-08-14 21:26 | External Medical Summary ---
Author Name Unknown Address Unknown Organization : Laboratory Report Ordering Provider Test Date Status GEORGES GOMES 07/15/2024 13:52:02 Final Therapeutic ranges for non-o perative patients:
Prophylaxsis/treatment of DVT: (Range:2.0-3.0)
Treatment of pulmonary embolism:(Range:2.0-3.0)
Prevention of systemic embolism from:
-tissue heart valves
-acute myocardial infarction
-valvular heart disease
-atrial fibrillation
(Range: 2.0-3.0)
Mechanical prosthetic valves: (Range: 2.5-3.5) Observation Date Value Abnormality Reference (Units ) Status INR in Capillary blood by Coagulation assay 07/15/2024 13:52:02 2.5 (INR) Final Performing Location
--- OUTSIDE RECORDS SUMMARY | 2024-08-14 21:26 | External Medical Summary | Summary of Care ---
Author Name Unknown Organization [facility] Address [address] [facility] [place] [address] Phone [phone] Care Team Providers Care Urogynaecologist Name Role Phone AlvajoshuaMarycruz PA-C Primary Care Provider [phone] Reason for Visit * Reason Comments Dosage Adjustment In Person (Anticoag Cl inic) Encounter Details Date Type Department Care Team (Latest Contact Info) Description 05/26/2024 11:10 AM EDT Anticoagulation Pharmacy, [place] [address] [place] [address] [facility] [address] [place] [address] Anticoagulation management encounter*; Persistent atrial fibrillation (HCC); Lung nodule Allergies Active Allergy Reactions Criticality Noted Date Comments Adhesive Tape Itching,Rash 10/17/2016 Bimatoprost 05/14/2023 Celecoxib 10/16/2011 Codeine 12/31/2001 sick to stomach Latanoprost 05/14/2023 Sulfa Antibiotics 08/03/2005 Timolol 05/14/2023 Travoprost 05/14/2023 Dulaglutide Muscle pain 10/11/2021 documented as of this encounter (statuses as of 05/26/2024) Medications Medication Sig Dispensed Refills Start Date End Date Status GLUCOSAMINE 1500 COMPLEX PO CAPS one daily Active ALPHAGAN P 0.1 % OP SOLN as directed Active CALCIUM 500 +D 500-400 MG-UNIT PO TABS 1 daily Active [place] 3 1000 MG CAPS Take 1,000 mg by mouth 2 times a day. 05/24/2015 Active Magnesium 200 MG Tablet Take 2 Tablets by mouth in the morning and 2 Tablets at noon and 2 Tablets before bedtime. Active Blood Glucose Monitoring Suppl ([employer] VERIO) w/Device KITIndications:Type 2 diabetes mellitus with hemoglobin A1c goal of less than 8.0% (HCC) Use up to 4 times a day E11.9 1 Kit 04/15/2019 Active OneTouch Renae Lancets 33GIndications:Type 2 diabetes mellitus with hemoglobin A1c goal of less than 8.0% (HCC) Use to test blood sugars once daily Dx E11.9 100 Each 3 02/20/2021 Active Potassium Chloride Kyleigh ER 10 MEQ Oral Tablet Extended ReleaseIndications: HTN, goal below 140/90 One on days using furosemide 10 Tablet 11 01/30/2022 Active Furosemide 20 MG Oral Tablet (Lasix)Indications: HTN, goal below 140/90,Localized edema Take by mouth 1 Tablet in the morning. 90 Tablet 3 07/16/2022 Active Additional Information Patient taking differently:20 mg OralDAILY PRN, Reported on 01/22/2023 Asteel In Vitro Strip (Glucose Blood)Indications:T ype 2 diabetes mellitus with hemoglobin A1c goal of less than 8.0% (HCC) Use to test blood sugars once daily Dx E11.9 100 Strip 3 02/19/2023 Active Warfarin Sodium 5 MG Oral Tablet (Coumadin)Indicatio ns:Paroxysmal atrial fibrillation (HCC) take 1/2 to 1 tablet (2.5mg to 5mg) by mouth daily as directed BY [facility]IN [facility]INIC 90 Tablet 3 04/01/2023 Active LORazepam 1 MG Oral Tablet (Ativan)Indications [...] Active Additional Information Patient taking differently:3 mL [id number] PRN, Reported on 10/03/2023 Pantoprazole Sodium 40 [...] ONCE DAILY 90 Tablet 1 05/20/2024 Active documented as of this encounter (statuses as of 05/26/2024) Active Problems Problem Noted Date Diagnosed Date [...] as of this encounter (statuses as of 05/26/2024) Resolved Problems Problem Noted Date Diagnosed Date [...] as of this encounter (statuses as of 05/26/2024) Immunizations Name Administration Dates Next Due Pneumococcal [...] this encounter Progress Notes * Lamar Holden RPh - 05/26/2024 11:04 AM EDT Medication Therapy Disease Management - Anticoagulation Patient: Lola Escobedo | : 1935 Subjective Patient-Reported Symptoms: Patient Findings Negatives: Signs/symptoms of thrombosis, Signs/symptoms of bleeding, Change in health, Change in alcohol use, Change in activity, Upcoming invasive procedure, Missed doses, Extra doses, Change in medications, Change in diet/appetite, Bruising Objective Current Warfarin Dose As of 05/26/2024 Warfarin maintenance plan: 5 mg (5 mg x 1) every Mon, Wed, Fri; 2.5 mg (5 mg x 0.5) all other days INR Result As of 05/26/2024 INR goal: 2.0-3.0 INR used for dosin.0 (05/26/2024) Assessment & Plan Warfarin Plan As of 05/26/2024 Full warfarin instructions: 5 mg every Mon, Wed, Fri; 2.5 mg all other days Next INR check: 07/02/2024 Repeat PT/INR in 5 week(s) Weekly dose: not changed Additional Dosing Information: Description Pt does not drive- does not want GML at this time Lamar Holden RPh Clinical Pharmacist 05/26/2024, 11:05 AM documented in this encounter Plan of Treatment Upcoming Encounters Date Type Department Care Team (Late st Contact Info) Description 07/02/2024 11:30 AM EDT Anticoagulation Pharmacy, [place] [address] [address] [place], [facility] [address] [facility] [address] 09/08/2024 11:00 AM EDT Office Visit Cardiology, [facility] [address] [place] [address] Macy Denney, AGUSTINA [address] [place] [address] Health Maintenance Due Date Last Done Comments [...] Comments INR FINGERSTICK, POINT OF CARE STAT 05/26/2024 11:08 AM EDT Persistent atrial fibrillation (HCC) documented in this encounter Results * INR FINGERSTICK, POINT OF CARE (05/26/2024 11:08 AM EDT) Fingerstick INR 3.0 INR 11:10 AM EDT [facility] Blood 05/26/2024 11:0 8 AM EDT 05/26/2024 11:10 AM EDT Narrative [facility] - 05/26/2024 11:10 AM EDT Therapeutic ranges for non-operative patients: Prophylaxsis/treatment of DVT: (Range:2.0-3.0) Treatment of pulmonary embolism:(Range:2.0-3.0) Prevention of systemic embolism from: -tissue heart valves -acute myocardial infarction -valvular heart disease -atrial fibrillation (Range: 2.0-3.0) Mechanical prosthetic valves: (Range: 2.5-3.5) [facility] LAB POINT O F CARE TEST DOCKED DEVICE UNSOLICITED RESULTS Performing Organization Address City/State/[facility] Co de Phone Number [facility] [address] [place], [place] [phone] documented in this encounter Visit Diagnoses Diagnosis Anticoagulation management encounter- Primary Encounter for therapeutic drug monitoring Persistent atrial fibrillation (HCC) Atrial fibrillation Lung nodule Solitary pulmonary nodule documented in this encounter Care Teams Urogynaecologist Relationship Specialty Start Date End Date Ankita March AGUSTINA Ledezma [address] [place] [address] PCP - General Physician Client Services Representative 01/20/19 documented as of this encounter"
--- OUTSIDE RECORDS SUMMARY | 2024-08-14 21:26 | External Medical Summary | Summary of Care ---
Author Name Unknown Organization [facility] Address [address] [facility] [place] [address] Phone [phone] Care Team Providers Care Computer Systems Analyst Name Role Phone AlvajoshuaMarycruz PA-C Primary Care Provider [phone] Reason for Visit * Reason Comments Dosage Adjustment In Person (Anticoag Cl inic) Encounter Details Date Type Department Care Team (Latest Contact Info) Description 07/02/2024 11:30 AM EDT Anticoagulation Pharmacy, [place] [address] [place] [address] [facility] [address] [place] [address] Anticoagulation management encounter*; Persistent atrial fibrillation (HCC); Lung nodule Allergies Active Allergy Reactions Criticality Noted Date Comments Adhesive Tape Itching,Rash 10/17/2016 Bimatoprost 05/14/2023 Celecoxib 10/16/2011 Codeine 12/31/2001 sick to stomach Latanoprost 05/14/2023 Sulfa Antibiotics 08/03/2005 Timolol 05/14/2023 Travoprost 05/14/2023 Dulaglutide Muscle pain 10/11/2021 documented as of this encounter (statuses as of 07/02/2024) Medications Medication Sig Dispensed Refills Start Date End Date Status GLUCOSAMINE 1500 COMPLEX PO CAPS one daily Active ALPHAGAN P 0.1 % OP SOLN as directed Active CALCIUM 500 +D 500-400 MG-UNIT PO TABS 1 daily Active [place] 3 1000 MG CAPS Take 1,000 mg by mouth 2 times a day. 05/24/2015 Active Magnesium 200 MG Tablet Take 2 Tablets by mouth in the morning and 2 Tablets at noon and 2 Tablets before bedtime. Active Blood Glucose Monitoring Suppl ([employer]) w/Device KITIndications:Type 2 diabetes mellitus with hemoglobin A1c goal of less than 8.0% (HCC) Use up to 4 times a day E11.9 1 Kit 04/15/2019 Active [employer] Renae Lancets 33GIndications:Type 2 diabetes mellitus with hemoglobin A1c goal of less than 8.0% ([facility]) Use to test blood sugars once daily Dx E11.9 100 Each 3 02/20/2021 Active Potassium Chloride Kyleigh ER 10 MEQ Oral Tablet Extended ReleaseIndications: HTN, goal below 140/90 One on days using furosemide 10 Tablet 11 01/30/2022 Active Flatora In Vitro Strip (Glucose Blood)Indications:T ype 2 [...] Active Additional Information Patient taking differently:3 mL [id number] PRN, Reported on 10/03/2023 Pantoprazole Sodium 40 [...] as of this encounter (statuses as of 07/02/2024) Active Problems Problem Noted Date Diagnosed Date [...] as of this encounter (statuses as of 07/02/2024) Resolved Problems Problem Noted Date Diagnosed Date [...] as of this encounter (statuses as of 07/02/2024) Immunizations Name Administration Dates Next Due Pneumococcal [...] as of this encounter Progress Notes * Suly Holden [facility] - 07/02/2024 12:30 PM EDT Agree with plan as documented. Will look into [employer] for patient. Suly Holden [facility] Clinical Pharmacist 07/02/2024, 12:30 PM * Alisia Morgan [facility] - 07/02/2024 11:34 AM EDT Images from the original note were not included. Medication Therapy Disease Management - Anticoagulation Patient: Lola Escobedo | : 1935 Subjective Patient-Reported Symptoms: Patient Findings Positives: Signs/symptoms of bleeding (Pt reported two occurances of bleeding when brushing teeth. No bruising or symptoms of bleeding.), Change in activity (Pt reported very little acitivity level.), Change in diet/appetite (Eating less veggies) Negatives: Signs/symptoms of thrombosis, Change in health, Change in alcohol use, Upcoming invasiveprocedure, Missed doses, Extra doses, Change in medications, Bruising Objective Current Warfarin Dose As of 07/02/2024 Warfarin maintenance plan: 5 mg (5 mg x 1) every Mon, Wed, Fri; 2.5 mg (5 mg x 0.5) all other days INR Result As of 07/02/2024 INR goal: 2.0-3.0 INR used for dosin.1 (07/02/2024) Assessment & Plan Warfarin Plan As of 07/02/2024 Full warfarin instructions: 07/02: Hold; Otherwise 5 mg every Mon, Wed, Fri; 2.5 mg all other days Next INR check: 07/15/2024 Repeat PT/INR in 2 week(s) Weekly dose: not changed. Additional Dosing Information: Description Pt does not drive- does not want GML at this time I spent a total of 10-19 minutes (exact time 15 mins) on the date of service in preparation, delivery, and documentation of the care provided to Lola Escobedo excluding any time spent in the performance of separately billed services or time spent by another provider/QHP. Alisia Morgan (Tina), PharmD, [facility] PGY1 [facility] 07/02/2024 12:21 PM documented in this encounter Miscellaneous Notes * Addendum Note - Suly Holden RP - 07/02/2024 12:30 PM EDT Addended by: SULY HOLDEN on: 07/02/2024 12:30 PM Modules accepted: Level of Service documented in this encounter Plan of Treatment Upcoming Encounters Date Type Department Care Team (Late st Contact Info) Description 07/15/2024 1:50 PM EDT [address], [address] [address] [facility] [place] [address] 09/01/2024 11:00 AM EDT Office Visit Family Practice [facility] [address] [place] [address] Marycruz Luciano PA-C [address] [place] [address] 09/08/2024 11:00 AM EDT Office Visit Cardiology, [facility] [address] [facility] [place] [address] Macy Denney PA-C [address] [place] [address] Health Maintenance Due Date Last Done Comments [...] Comments INR FINGERSTICK, POINT OF CARE STAT 07/02/2024 11:36 AM EDT Persistent atrial fibrillation (HCC) documented in this encounter Results * INR FINGERSTICK, POINT OF CARE (07/02/2024 11:36 AM EDT) Fingerstick INR 4.1 INR 11:45 AM EDT [facility] Blood 07/02/2024 11:3 6 AM EDT 07/02/2024 11:45 AM EDT Narrative [facility] - 07/02/2024 11:45 AM EDT Therapeutic ranges for non-operative patients: Prophylaxsis/treatment of DVT: (Range:2.0-3.0) Treatment of pulmonary embolism:(Range:2.0-3.0) Prevention of systemic embolism from: -tissue heart valves -acute myocardial infarction -valvular heart disease -atrial fibrillation (Range: 2.0-3.0) Mechanical prosthetic valves: (Range: 2.5-3.5) [facility] LAB POINT O F CARE TEST DOCKED DEVICE UNSOLICITED RESULTS [facility] [address] [place], [place] [id number] documented in this encounter Visit Diagnoses Diagnosis Anticoagulation management encounter- Primary Encounter for therapeutic drug monitoring Persistent atrial fibrillation (HCC) Atrial fibrillation Lung nodule Solitary pulmonary nodule documented in this encounter Care Teams Computer Systems Analyst Relationship Specialty Start Date End Date AnkitaMarch AGUSTINA Ledezma [address] [place] [address] PCP - General Physician Grades 1 Thru 5 Teacher 01/20/19 documented as of this encounter"
--- OUTSIDE RECORDS SUMMARY | 2024-08-14 21:26 | External Medical Summary ---
Author Name Unknown Address Unknown Organization : Laboratory Report Ordering Provider Test Date Status GEORGES GOMES 07/02/2024 11:36:54 Final Therapeutic ranges for non-o perative patients:
Prophylaxsis/treatment of DVT: (Range:2.0-3.0)
Treatment of pulmonary embolism:(Range:2.0-3.0)
Prevention of systemic embolism from:
-tissue heart valves
-acute myocardial infarction
-valvular heart disease
-atrial fibrillation
(Range: 2.0-3.0)
Mechanical prosthetic valves: (Range: 2.5-3.5) Observation Date Value Abnormality Reference (Units ) Status INR in Capillary blood by Coagulation assay 07/02/2024 11:36:54 4.1 (INR) Final Performing Location
--- OUTSIDE RECORDS SUMMARY | 2024-08-14 21:26 | External Medical Summary | Summary of Care ---
Author Name Unknown Organization [facility] Address [address] [place] [address] Phone [phone] Care Team Providers Care Transistor Tester Name Role Phone AlvajoshuaMarycruz PA-C Primary Care Provider [phone] Reason for Visit * Reason Comments Dosage Adjustment In Person (Anticoag Cl inic) Encounter Details Date Type Department Care Team (Latest Contact Info) Description 07/02/2024 11:30 AM EDT Anticoagulation Pharmacy, [place] [address] [place] [address] [facility] [address] [place] [address] Anticoagulation management encounter*; Persistent atrial fibrillation (HCC); [...] 500-400 MG-UNIT PO TABS 1 daily Active [place] 3 1000 MG CAPS Take 1,000 mg by mouth 2 times a day. 05/24/2015 Active Magnesium 200 MG Tablet Take 2 Tablets by mouth in the morning and 2 Tablets at noon and 2 Tablets before bedtime. Active Blood Glucose Monitoring Suppl (InstaMed) w/Device KITIndications:Type 2 diabetes mellitus with hemoglobin A1c goal of less than 8.0% (HCC) Use up to 4 times a day E11.9 1 Kit 04/15/2019 Active ideacts innovations Renae Lancets 33GIndications:Type 2 diabetes mellitus with hemoglobin A1c goal of less than 8.0% ([facility]) Use to test blood sugars once daily Dx E11.9 100 Each 3 02/20/2021 Active Potassium Chloride Kyleigh ER 10 MEQ Oral Tablet Extended ReleaseIndications: HTN, goal below 140/90 One on days using furosemide 10 Tablet 11 01/30/2022 Active 51edj In Vitro Strip (Glucose Blood)Indications:T ype 2 [...] Active Additional Information Patient taking differently:3 mL [id number] PRN, Reported on 10/03/2023 Pantoprazole Sodium 40 [...] this encounter Progress Notes * Suly Holden formerly [facility] - 07/02/2024 12:30 PM EDT Agree with plan as documented. Will look into Acelis for patient. Suly Holden formerly [facility] Clinical Pharmacist 07/02/2024, 12:30 PM * Alisia Morgan formerly [facility] - 07/02/2024 11:34 AM EDT Images from [...] by another provider/QHP. Alisia Morgan (Tina), PharmD, formerly [facility] PGY1 Track Grinder Medication Therapy Management Clinic 07/02/2024 12:21 PM documented in this encounter Miscellaneous Notes * Addendum Note - Suly Holden RP - 07/02/2024 12:30 PM EDT Addended by: SULY HOLDEN on: 07/02/2024 12:30 PM Modules accepted: Level of Service documented in this encounter Plan of Treatment Upcoming Encounters Date Type Department Care Team (Late st Contact Info) Description 07/15/2024 1:50 PM EDT [address], [address] [address] [facility] [place] [address] 09/01/2024 11:00 AM EDT Office Visit Family Practice [facility] [address] [place] [address] Marycruz Luciano PA-C [address] [place] [address] 09/08/2024 11:00 AM EDT Office Visit Cardiology, [facility] [address] [facility] [place] [address] Macy Denney PA-C [address] [place] [address] Health Maintenance Due Date Last Done Comments [...] INR 4.1 INR 11:45 AM EDT [facility] Blood 07/02/2024 11:3 6 AM EDT 07/02/2024 11:45 AM EDT Narrative [facility] - 07/02/2024 11:45 AM EDT Therapeutic ranges for non-operative patients: Prophylaxsis/treatment of DVT: (Range:2.0-3.0) Treatment of pulmonary embolism:(Range:2.0-3.0) Prevention of systemic embolism from: -tissue heart valves -acute myocardial infarction -valvular heart disease -atrial fibrillation (Range: 2.0-3.0) Mechanical prosthetic valves: (Range: 2.5-3.5) Josr Roper formerly [facility] LAB POINT O F CARE TEST DOCKED DEVICE UNSOLICITED RESULTS [facility] [address] [place], [place] [id number] documented in this encounter Visit Diagnoses Diagnosis Anticoagulation management encounter- Primary Encounter for therapeutic drug monitoring Persistent atrial fibrillation (HCC) Atrial fibrillation Lung nodule Solitary pulmonary nodule documented in this encounter Care Teams Transistor Tester Relationship Specialty Start Date End Date AnkitaMarch AGUSTINA Ledezma [address] [place] [address] PCP - General Physician Relay Record Clerk 01/20/19 documented as of this encounter"
--- OUTSIDE RECORDS SUMMARY | 2024-08-14 21:26 | External Medical Summary | Summary of Care ---
Author Name Unknown Organization [facility] Address [address] [facility] [place] [address] Phone [phone] Care Team Providers Care Historic Sites Supervisor Name Role Phone Marycruz Luciano PA-C Primary Care Provider [phone] Encounter Details Date Type Department Care Team (Late st Contact Info) Description [facility] [address] [place] [phone] [facility] [address] [place] [address] Allergies Active Allergy Reactions Criticality Noted Date [...] 500-400 MG-UNIT PO TABS 1 daily Active [place] 3 1000 MG CAPS Take 1,000 mg by mouth 2 times a day. 05/24/2015 Active Magnesium 200 MG Tablet Take 2 Tablets by mouth in the morning and 2 Tablets at noon and 2 Tablets before bedtime. Active Blood Glucose Monitoring Suppl ([employer]Stevia [employer]) w/Device KITIndications:Type 2 diabetes mellitus with hemoglobin A1c goal of less than 8.0% (HCC) Use up to 4 times a day E11.9 1 Kit 04/15/2019 Active JAYSTouch Delrafa Lancets 33GIndications:Type 2 diabetes mellitus with hemoglobin A1c goal of less than 8.0% (HCC) Use to test blood sugars once daily Dx E11.9 100 Each 3 02/20/2021 Active Potassium Chloride Kyleigh ER 10 MEQ Oral Tablet Extended ReleaseIndications: HTN, goal below 140/90 One on days using furosemide 10 Tablet 11 01/30/2022 Active JAYSToWaveTech Engines In Vitro Strip (Glucose Blood)Indications:T ype 2 [...] Active Additional Information Patient taking differently:3 mL [id number] PRN, Reported on 10/03/2023 Pantoprazole Sodium 40 [...] encounter Miscellaneous Notes * Telephone Encounter - Alisia Morgan RPh - 07/15/2024 2:24 PM EDT Medication Therapy Disease Management - Anticoagulation Patient: Lloa Escobedo | : 1935 Called [facility] at [phone] and spoke to agent Bhumika to check on status of the INR home machineapplication since pt reported no update from [facility] during today's inperson fingerstick INR appt. Bhumika reported James contacting [employer] and spoke to Loren on 07/03/2024, and Bhumika was informed that under pt's insurance policy any DME [facility]. Will f/u. Alisia (Yareli) Eddie PharmD, [facility] PGY1 Healthcare Technician Medication Therapy Management Clinic 07/15/2024 2:34 PM documented in this encounter Plan of Treatment Upcoming Encounters Date Type Department Care Team (Late st Contact Info) Description 09/01/2024 11:00 AM EDT Office Visit Family Practice [facility] [address] [facility] [place] [address] Marycruz Luciano PA-C [address] [facility] [place] [address] 09/02/2024 5:30 PM EDT Anticoagulation Pharmacy, [place] [address] [facility] [place] [address] [place], [facility] [address] [facility] [place] [address] 09/08/2024 11:00 AM EDT Office Visit Cardiology, [facility] 132 [facility] [place] [address] Macy Denney PA-C [address] [place] [address] Health Maintenance Due Date Last Done Comments [...] nodule documented in this encounter Care Teams Historic Sites Supervisor Relationship Specialty Start Date End Date AnkitaMarch AGUSTINA Ledezma [address] [place] [address] PCP - General Physician Color Corrector 01/20/19 documented as of this encounter"
--- OUTSIDE RECORDS SUMMARY | 2024-08-14 21:26 | External Medical Summary | Summary of Care ---
Author Name Unknown Organization [facility] Address [address] [facility] [place] [address] Phone [phone] Care Team Providers Care Regulatory And Compliance Technician Name Role Phone Marycruz Luciano PA-C Primary Care Provider [phone] Reason for Visit * Reason Comments eRx-Medication Refill Encounter Details Date Type Department Care Team (Late st Contact Info) Description 06/22/2024 Refill Family Practice [facility] 200 [facility] [place] [address] Marycruz Luciano PA-C 200 [facility] [place] [address] HTN, goal below 140/90; Localized edema Allergies Active Allergy Reactions Criticality Noted Date Comments Adhesive Tape Itching,Rash 10/17/2016 Bimatoprost 05/14/2023 Celecoxib 10/16/2011 Codeine 12/31/2001 sick to stomach Latanoprost 05/14/2023 Sulfa Antibiotics 08/03/2005 Timolol 05/14/2023 Travoprost 05/14/2023 Dulaglutide Muscle pain 10/11/2021 documented as of this encounter (statuses as of 06/23/2024) Medications Medication Sig Dispensed Refills Start Date End Date Status GLUCOSAMINE 1500 COMPLEX PO CAPS one daily Active ALPHAGAN P 0.1 % OP SOLN as directed Active CALCIUM 500 +D 500-400 MG-UNIT PO TABS 1 daily Active Ste[place] 3 1000 MG CAPS Take 1,000 mg by mouth 2 times a day. 05/24/2015 Active Magnesium 200 MG Tablet Take 2 Tablets by mouth in the morning and 2 Tablets at noon and 2 Tablets before bedtime. Active Blood Glucose Monitoring Suppl (dotCloudTOUCH VERIO) w/Device KITIndications:Ty pe 2 diabetes mellitus with hemoglobin A1c goal of less than 8.0% (HCC) Use up to 4 times a day E11.9 1 Kit 04/15/2019 Active OSIXTouch Renae Lancets 33GIndications:Ty pe 2 diabetes mellitus with hemoglobin A1c goal of less than 8.0% (HCC) Use to test blood sugars once daily Dx E11.9 100 Each 3 02/20/2021 Active Potassium Chloride Kyleigh ER 10 MEQ Oral Tablet Extended ReleaseIndication s:HTN, goal below 140/90 One on days using furosemide 10 Tablet 11 01/30/2022 Active OSIXTouch [employer] In Vitro Strip (Glucose Blood)Indications :Type 2 [...] Active Additional Information Patient taking differently:3 mL LzoprwxiwU1N PRN, Reported on 10/03/2023 Pantoprazole Sodium 40 [...] EVERY MORNING 90 Tablet 1 06/23/2024 Active Furosemide 20 MG Oral Tablet (Lasix)Indication s:HTN, goal below 140/90,Localized edema Take by mouth 1 Tablet in the morning. 90 Tablet 3 07/16/2022 06/23/20 24 Discontinued documented as of this encounter (statuses as of 06/23/2024) Active Problems Problem Noted Date Diagnosed Date [...] as of this encounter (statuses as of 06/23/2024) Resolved Problems Problem Noted Date Diagnosed Date [...] as of this encounter (statuses as of 06/23/2024) Immunizations Name Administration Dates Next Due Pneumococcal [...] encounter Miscellaneous Notes * Telephone Encounter - Lopez Potter [facility] - 06/23/2024 7:14 AM EDTSigned Prescriptions: Disp Refills Furosemide 20 MG Oral Tablet (Lasix) 90 Tab*1 Sig: TAKE 1 TABLETBY MOUTH EVERY MORNINGAuthorizing Provider: MARYCRUZ LUCIANO User: LOPEZ POTTER documented in this encounter Plan of Treatment Upcoming Encounters Date Type Department Care Team (Late st Contact Info) Description 07/02/2024 11:30 AM EDT Anticoagulation Pharmacy, [address] [address] [facility] [address] [place] [address] 09/08/2024 11:00 AM EDT Office Visit Cardiology, [facility] [address] [place] [address] Macy Denney PA-C [address] [place] [address] Health Maintenance Due Date Last Done Comments [...] HTN, goal below 140/90 Unspecified essential hypertension Localized edema Edema documented in this encounter Care Teams Regulatory And Compliance Technician Relationship Specialty Start Date End Date Ankita March AGUSTINA Ledezma [address] [place] [address] PCP - General Physician Jacquard Fixer 01/20/19 documented as of this encounter
--- OUTSIDE RECORDS SUMMARY | 2024-08-14 21:26 | External Medical Summary ---
Author Name Unknown Address Unknown Organization : Laboratory Report Ordering Provider Test Date Status GEORGES GOMES 05/26/2024 11:08:18 Final Therapeutic ranges for non-o perative patients:
Prophylaxsis/treatment of DVT: (Range:2.0-3.0)
Treatment of pulmonary embolism:(Range:2.0-3.0)
Prevention of systemic embolism from:
-tissue heart valves
-acute myocardial infarction
-valvular heart disease
-atrial fibrillation
(Range: 2.0-3.0)
Mechanical prosthetic valves: (Range: 2.5-3.5) Observation Date Value Abnormality Reference (Units ) Status INR in Capillary blood by Coagulation assay 05/26/2024 11:08:18 3.0 (INR) Final Performing Location
--- OUTSIDE RECORDS SUMMARY | 2024-08-14 21:26 | External Medical Summary | Summary of Care ---
Author Name Unknown Organization [facility] Address [address] [facility] [place] [address] Phone [phone] Care Team Providers Care Floor Worker Name Role Phone AlvajoshuaMarycruz PA-C Primary Care Provider [phone] Reason for Visit * Reason Comments Dosage Adjustment In Person (Anticoag Cl inic) Encounter Details Date Type Department Care Team (Latest Contact Info) Description 07/02/2024 11:30 AM EDT Anticoagulation Pharmacy, [place] [address] [place] [address] [facility] [address] [place] [address] Anticoagulation management encounter*; Persistent atrial fibrillation (HCC); [...] 500-400 MG-UNIT PO TABS 1 daily Active [place] 3 1000 MG CAPS Take 1,000 mg by mouth 2 times a day. 05/24/2015 Active Magnesium 200 MG Tablet Take 2 Tablets by mouth in the morning and 2 Tablets at noon and 2 Tablets before bedtime. Active Blood Glucose Monitoring Suppl (Nibiru[employer]) w/Device KITIndications:Type 2 diabetes mellitus with hemoglobin A1c goal of less than 8.0% (HCC) Use up to 4 times a day E11.9 1 Kit 04/15/2019 Active Zipnosis Renae Lancets 33GIndications:Type 2 diabetes mellitus with hemoglobin A1c goal of less than 8.0% ([facility]) Use to test blood sugars once daily Dx E11.9 100 Each 3 02/20/2021 Active Potassium Chloride Kyleigh ER 10 MEQ Oral Tablet Extended ReleaseIndications: HTN, goal below 140/90 One on days using furosemide 10 Tablet 11 01/30/2022 Active P2Binvestor In Vitro Strip (Glucose Blood)Indications:T ype 2 [...] Active Additional Information Patient taking differently:3 mL LqgnqqwkiC5G PRN, Reported on 10/03/2023 Pantoprazole Sodium 40 [...] this encounter Progress Notes * Suly Holden [facility] - 07/02/2024 12:30 PM EDT Agree with plan as documented. Will look into [employer]elis for patient. Suly Holden [facility] Clinical Pharmacist 07/02/2024, 12:30 PM * Alisia Morgan [facility] - 07/02/2024 11:34 AM EDT Images [...] by another provider/QHP. Alisia Morgan (Tina), PharmD, [facility] PGY1 Production Weigher Medication Therapy Management Clinic 07/02/2024 12:21 PM documented in this encounter Miscellaneous Notes * Addendum Note - Suly Holden RP - 07/02/2024 12:30 PM EDT Addended by: SULY HOLDEN on: 07/02/2024 12:30 PM Modules accepted: Level of Service documented in this encounter Plan of Treatment Upcoming Encounters Date Type Department Care Team (Late st Contact Info) Description 07/15/2024 1:50 PM EDT [address], [address] [address] [facility] [place] [address] 09/01/2024 11:00 AM EDT Office Visit Family Practice [facility] [address] [place] [address] Marycruz Luciano PA-C [address] [place] [address] 09/08/2024 11:00 AM EDT Office Visit Cardiology, [facility] 132 [facility] [place] [address] Mcay Denney PA-C [address] [place] [address] Health Maintenance Due Date Last Done Comments [...] INR 4.1 INR 11:45 AM EDT [facility] Blood 07/02/2024 11:3 6 AM EDT 07/02/2024 11:45 AM EDT Narrative [facility] - 07/02/2024 11:45 AM EDT Therapeutic ranges for non-operative patients: Prophylaxsis/treatment of DVT: (Range:2.0-3.0) Treatment of pulmonary embolism:(Range:2.0-3.0) Prevention of systemic embolism from: -tissue heart valves -acute myocardial infarction -valvular heart disease -atrial fibrillation (Range: 2.0-3.0) Mechanical prosthetic valves: (Range: 2.5-3.5) Jsor Roper [facility] LAB POINT O F CARE TEST DOCKED DEVICE UNSOLICITED RESULTS [facility] [address] [place], [place] [phone] documented in this encounter Visit Diagnoses Diagnosis Anticoagulation management encounter- Primary Encounter for therapeutic drug monitoring Persistent atrial fibrillation (HCC) Atrial fibrillation Lung nodule Solitary pulmonary nodule documented in this encounter Care Teams Floor Worker Relationship Specialty Start Date End Date AnkitaMarch AGUSTINA Ledezma [address] [place] [address] PCP - General Physician Data Conversion Developer 01/20/19 documented as of this encounter"
--- OUTSIDE RECORDS SUMMARY | 2024-08-14 21:26 | External Medical Summary | Summary of Care ---
Author Name Unknown Organization [facility] Address [address] [facility] [address] Phone [phone] Care Team Providers Care Glue Size Machine Operator Name Role Phone Marycruz Luciano PA-C Primary Care Provider [phone] Reason for Visit * Reason Onset Date Comments Durable Medical Equipment 07/02/2024 Home I NR Machine Encounter Details Date Type Department Care Team (Late st Contact Info) Description 07/02/2024 Telephone Pharmacy, [place] [address] [place] [phone] Lamar Holden, [facility] [address] [place] [address] Durable Medical Equipment (Home INR Machine) Allergies Active Allergy Reactions Criticality Noted Date [...] 500-400 MG-UNIT PO TABS 1 daily Active [place] 3 1000 MG CAPS Take 1,000 mg by mouth 2 times a day. 05/24/2015 Active Magnesium 200 MG Tablet Take 2 Tablets by mouth in the morning and 2 Tablets at noon and 2 Tablets before bedtime. Active Blood Glucose Monitoring Suppl ([employer]) w/Device KITIndications:Type 2 diabetes mellitus with hemoglobin A1c goal of less than 8.0% (HCC) Use up to 4 times a day E11.9 1 Kit 04/15/2019 Active DirectLawuch Renae Lancets 33GIndications:Type 2 diabetes mellitus with hemoglobin A1c goal of less than 8.0% ([facility]) Use to test blood sugars once daily Dx E11.9 100 Each 3 02/20/2021 Active Potassium Chloride Kyleigh ER 10 MEQ Oral Tablet Extended ReleaseIndications: HTN, goal below 140/90 One on days using furosemide 10 Tablet 11 01/30/2022 Active Mahindra REVA In Vitro Strip (Glucose Blood)Indications:T ype 2 [...] Active Additional Information Patient taking differently:3 mL BugsyhrrgS5V PRN, Reported on 10/03/2023 Pantoprazole Sodium 40 [...] Notes * Telephone Encounter - Lamar Holden [facility] - 07/02/2024 2:00 PM EDT Filled out and faxed [employer] forms for patient to get HOME INR MONITOR. Received successful confirmation of fax. Forms scanned into chart. Lamar Holden, PharmD Clinical Pharmacist Medication Therapy Disease Management 07/02/2024, 2:00 PM documented in this encounter Plan of Treatment Upcoming Encounters Date Type Department Care Team (Late st Contact Info) Description 07/15/2024 1:50 PM EDT Anticoagulation Pharmacy, [address] [address] [facility] [address] [place] [address] 09/01/2024 11:00 AM EDT Office Visit Family Practice [facility] 200 [facility] [place] [address] Marycruz Luciano PA-C 200 [facility] [place] [address] 09/08/2024 11:00 AM EDT Office Visit Cardiology, [facility] [address] [place] [address] Macy Denney PA-C [address] [address] Health Maintenance Due Date Last Done Comments [...] nodule documented in this encounter Care Teams Glue Size Machine Operator Relationship Specialty Start Date End Date Ankita Marycruz AGUSTINA Ledezma [address] [place] [address] PCP - General Physician Telephonic Case Manager 01/20/19 documented as of this encounter
--- OUTSIDE RECORDS SUMMARY | 2024-08-14 21:26 | External Medical Summary | Summary of Care ---
Author Name Unknown Organization [facility] Address [address] [facility] [place] [address] Phone [phone] Care Team Providers Care Industrial Painter Name Role Phone Marycruz Luciano PA-C Primary Care Provider [phone] Reason for Visit * Reason Onset Date Comments Health Maintenance 07/02/2024 Encounter Details Date Type Department Care Team (Late st Contact Info) Description 07/02/2024 Telephone Family Practice [facility] [place] [address] [facility] [place] [address] Marycruz Luciano PA-C [address] [facility] [place] [address] Health Maintenance Allergies Active Allergy Reactions Criticality Noted Date [...] 500-400 MG-UNIT PO TABS 1 daily Active [place] 3 1000 MG CAPS Take 1,000 mg by mouth 2 times a day. 05/24/2015 Active Magnesium 200 MG Tablet Take 2 Tablets by mouth in the morning and 2 Tablets at noon and 2 Tablets before bedtime. Active Blood Glucose Monitoring Suppl (FunPuntos) w/Device KITIndications:Type 2 diabetes mellitus with hemoglobin A1c goal of less than 8.0% (HCC) Use up to 4 times a day E11.9 1 Kit 04/15/2019 Active Ziegleruch Renae Lancets 33GIndications:Type 2 diabetes mellitus with hemoglobin A1c goal of less than 8.0% (HCC) Use to test blood sugars once daily Dx E11.9 100 Each 3 02/20/2021 Active Potassium Chloride [facility] 10 MEQ Oral Tablet Extended ReleaseIndications: HTN, goal below 140/90 One on days using furosemide 10 Tablet 11 01/30/2022 Active Mocavo In Vitro Strip (Glucose Blood)Indications:T ype 2 [...] Active Additional Information Patient taking differently:3 mL [id number] PRN, Reported on 10/03/2023 Pantoprazole Sodium 40 [...] LIPOMA SKIN NEC 11/27/2005 04/09/2019 Mixed dyslipidemia 02/14/200511/21/ 9 Overview: Per Lipid Taxonomy. Gastroesophageal reflux [...] encounter Miscellaneous Notes * Telephone Encounter - Kerry Brink LPN - 07/02/2024 10:07 AM EDT Care Gaps Comprehensive Care Outreach Last Office/Telemedicine Visit: 11/27/2023 (in office), Visit date not found (telemedicine) Next Office Visit: Visit date not found Hemoglobin AIC Results: Lab Results Component Value Date/Time HEMOGLOBIN A1C - [facility] 8.6 (H) 04/22/2024 12:07 PM HEMOGLOBIN A1C - [facility] 7.5 (H) 06/18/2023 09:01 AM HEMOGLOBIN A1C - [facility] 7.7 (H) 11/08/2022 11:34 AM HEMOGLOBIN A1C - [facility] 7.3 (H) 06/30/2019 03:12 PM HEMOGLOBIN A1C - [facility] 9.2 (H) 02/27/2019 03:38 PM HEMOGLOBIN A1C - [facility] 6.4 07/30/2017 03:10 PM BP Readings from Last 1 Encounters: 11/27/23 110/74 Reviewed Health Maintenance below: Health Maintenance Topic Date Due Zoster Vaccines (1 of 2) Never done DXA Scan 09/21/2021 COVID-19 Vaccine ( - season) Never done Diabetic Foot Exam 05/14/2024 Depression Screening 05/14/2024 Albumin/Creatinine Ratio 06/18/2024 Influenza Vaccine (FLU shot) (1) 08/02/2024 Diabetic Eye Exam 09/23/2024 HbA1c 10/23/2024 Recapture Ov scheduled. To discuss other hm with pcp has transportation issues [facility] fall lab Care Gap Outreach Action Taken: Spoke to patient documented in this encounter Plan of Treatment Upcoming Encounters Date Type Department Care Team ([facility] st Contact Info) Description 07/02/2024 11:30 AM EDT Anticoagulation Pharmacy, [place] [address] [place] [address] [place] [address] [facility] [address] [place] [address] 09/01/2024 11:00 AM EDT Office Visit Family Practice [facility] [address] [facility] [place] [address] Marycruz Luciano PA-C [address] [facility] [place] [address] 09/08/2024 11:00 AM EDT Office Visit Cardiology, [facility] [address] [place] [address] Macy Denney PA-C [address] [place] [address] Health Maintenance Due Date Last Done Comments [...] filedocumented as of this encounter Care Teams Industrial Painter Relationship Specialty Start Date End Date AnkitaMarch AGUSTINA Ledezma [address] [place] [address] PCP - General Physician Parking Attendant 01/20/19 documented as of this encounter
--- OUTSIDE RECORDS SUMMARY | 2024-08-14 21:27 | External Medical Summary | Summary of Care ---
Author Name Unknown Organization [facility] [address] [facility] [address] Phone [phone] Care Team Providers Care Operations Supervisor Name Role Phone AlvajoshuaMarycruz PA-C Primary Care Provider [phone] Reason for Visit * Reason Comments Dosage Adjustment In Person (Anticoag Cl inic) Encounter Details Date Type Department Care Team (Latest Contact Info) Description 04/28/2024 1:00 PM EDT Anticoagulation Pharmacy, [place] [address] [place] [address] [facility] [address] [place] [address] Anticoagulation management encounter*; Persistent atrial fibrillation (HCC); Lung nodule Allergies Active Allergy Reactions Criticality Noted Date Comments Adhesive Tape Itching,Rash 10/17/2016 Bimatoprost 05/14/2023 Celecoxib 10/16/2011 Codeine 12/31/2001 sick to stomach Latanoprost 05/14/2023 Sulfa Antibiotics 08/03/2005 Timolol 05/14/2023 Travoprost 05/14/2023 Dulaglutide Muscle pain 10/11/2021 documented as of this encounter (statuses as of 04/28/2024) Medications Medication Sig Dispensed Refills Start Date End Date Status GLUCOSAMINE 1500 COMPLEX PO CAPS one daily Active ALPHAGAN P 0.1 % OP SOLN as directed Active CALCIUM 500 +D 500-400 MG-UNIT PO TABS 1 daily Active [place] 3 1000 MG CAPS Take 1,000 mg by mouth 2 times a day. 05/24/2015 Active Magnesium 200 MG Tablet Take 2 Tablets by mouth in the morning and 2 Tablets at noon and 2 Tablets before bedtime. Active Blood Glucose Monitoring Suppl (MONTAJUCH VERIO) w/Device KITIndications:Type 2 diabetes mellitus with [...] differently:20 mg OralDAILY PRN, Reported on 01/22/2023 [employer] In Vitro Strip (Glucose Blood)Indications:T ype 2 [...] Active Additional Information Patient taking differently:3 mL [id number] PRN, Reported on 10/03/2023 Pantoprazole Sodium 40 MG Oral Tablet Delayed Release (Protonix) take 1 tablet by mouth every morning 30 MINUTES BEFORE THE FIRST MEAL.DO NOT CRUSH,SPLIT OR CHEW TABLET 30 Tablet 5 07/10/2023 Active Additional Information Patient not taking.Reported on 11/27/2023 Losartan Potassium 100 MG Oral Tablet (Cozaar)Indications :HTN, goal below 140/90 take 1 tablet by mouth once daily 90 Tablet 2 08/07/2023 Active Spironolactone 25 MG Oral Tablet (Aldactone)Indicati ons:Persistent [...] OTHER MEDS 90 Tablet 2 03/25/2024 Active documented as of this encounter (statuses as of 04/28/2024) Active Problems Problem Noted Date Diagnosed Date [...] as of this encounter (statuses as of 04/28/2024) Resolved Problems Problem Noted Date Diagnosed Date [...] as of this encounter (statuses as of 04/28/2024) Immunizations Name Administration Dates Next Due Pneumococcal [...] Progress Notes * Lamar Holden RPh - 04/28/2024 12:51 PM EDT Images from the original note were not included. Medication Therapy Disease Management - Anticoagulation Patient: Lola Escobedo | : 1935 Subjective Patient-Reported Symptoms: Patient Findings Negatives: Signs/symptoms of thrombosis, Signs/symptoms of bleeding, Change in health, Change in alcohol use, Change in activity, Upcoming invasive procedure, Missed doses, Extra doses, Change in medications, Change in diet/appetite, Bruising Objective Current Warfarin Dose As of 04/28/2024 Warfarin maintenance plan: 2.5 mg (5 mg x 0.5) every Sat, e, Roxie; 5 mg (5 mg x 1) all other days INR Result As of 04/28/2024 INR goal: 2.0-3.0 INR used for dosin.7 (04/28/2024) Assessment & Plan Warfarin Plan As of 04/28/2024 Full warfarin instructions: 04/28: Hold; Otherwise 5 mg every Mon, Wed, Fri; 2.5 mg all other days Next INR check: 05/26/2024 Repeat PT/INR in 4 weeks Weekly dose: decreased Additional Dosing Information: Description Pt does not drive- does not want GML at this time Lamar Holden RP Clinical Pharmacist 04/28/2024, 12:51 PM documented in this encounter Plan of Treatment Upcoming Encounters Date Type Department Care Team (Late st Contact Info) Description 05/26/2024 11:10 AM EDT Anticoagulation Pharmacy, [address] [place] [address] [facility] [address] [place] [address] 09/08/2024 11:00 AM EDT Office Visit Cardiology, [facility] [address] [place] [address] Macy Denney, AGUSTINA [address] [place] [address] Health Maintenance Due Date Last Done Comments [...] history exists Diabetic Eye Exam 09/23/2024 09/23/2023, 03/16/2019 HbA1c 10/23/2024 04/22/2024, 06/01, 11/08/2022, Additional history [...] Comments INR FINGERSTICK, POINT OF CARE STAT 04/28/2024 1:03 PM EDT Persistent atrial fibrillation (HCC) documented in this encounter Results * INR FINGERSTICK, POINT OF CARE (04/28/2024 1:03 PM EDT) Fingerstick INR 3.7 INR 2:23 PM EDT [facility] Blood 04/28/2024 1:03 PM EDT 04/28/2024 2:23 PM EDT Narrative [facility] - 04/28/2024 2:23 PM EDT Therapeutic ranges for non-operative patients: Prophylaxsis/treatment of DVT: (Range:2.0-3.0) Treatment of pulmonary embolism:(Range:2.0-3.0) Prevention of systemic embolism from: -tissue heart valves -acute myocardial infarction -valvular heart disease -atrial fibrillation (Range: 2.0-3.0) Mechanical prosthetic valves: (Range: 2.5-3.5) [facility] POINT O F CARE TEST DOCKED DEVICE UNSOLICITED RESULTS Performing Organization Address City/State/[facility] Co de Phone Number [facility] [address] [place], [place] [id number] documented in this encounter Visit Diagnoses Diagnosis Anticoagulation management encounter- Primary Encounter for therapeutic drug monitoring Persistent atrial fibrillation (HCC) Atrial fibrillation Lung nodule Solitary pulmonary nodule documented in this encounter Care Teams Operations Supervisor Relationship Specialty Start Date End Date Ankita March AGUSTINA [place] [address] [place] [address] PCP - General Physician Belt Glass Sander 01/20/19 documented as of this encounter"
--- OUTSIDE RECORDS SUMMARY | 2024-08-14 21:27 | External Medical Summary ---
Author Name Unknown Address Unknown Organization K01:[facility] [place] [address] [facility] [address] Laboratory Report Ordering Provider Test Date Status SOCORROEDUARDOGEORGES 04/22/2024 12:07:57 Final Observation Date Value Abnormality Reference (Units ) Status HbA1C 04/22/2024 12:07:57 8.6 Above high normal 4. 0-5.6 (%) Final The use of HbA1c to monitor glycemic status is based on normal hemoglobin and HbA composition. This test should not be used in patients with abnormal hemoglobin that affects the half life of the red blood cell or the in vivo glycation rates. Glucose, estimated average 04/22/2024 12:07:57 200 Above high normal <126 (mg/dL) Venkat flores Performing Location [facility] [place] [address] [facility] [address]
--- OUTSIDE RECORDS SUMMARY | 2024-08-14 21:27 | External Medical Summary | Summary of Care ---
Author Name Unknown Organization [facility] Address [address] [facility] [place] [address] Phone [phone] Care Team Providers Care Soap Grinder Name Role Phone AlvaMarycruz lewis Darien BERRIOS Primary Care Provider [phone] Encounter Details Date Type Department Care Team (Late st Contact Info) Description 05/05/2024 Population Health External Data Unspecified Department Allergies Active Allergy Reactions Criticality Noted Date Comments Adhesive Tape Itching,Rash 10/17/2016 Bimatoprost 05/14/2023 Celecoxib 10/16/2011 Codeine 12/31/2001 sick to stomach Latanoprost 05/14/2023 Sulfa Antibiotics 08/03/2005 Timolol 05/14/2023 Travoprost 05/14/2023 Dulaglutide Muscle pain 10/11/2021 documented as of this encounter (statuses as of 05/05/2024) Medications Medication Sig Dispensed Refills Start Date End Date Status GLUCOSAMINE 1500 COMPLEX PO CAPS one daily Active ALPHAGAN P 0.1 % OP SOLN as directed Active CALCIUM 500 +D 500-400 MG-UNIT PO TABS 1 daily Active [place] 3 1000 MG CAPS Take 1,000 mg by mouth 2 times a day. 05/24/2015 Active Magnesium 200 MG Tablet Take 2 Tablets by mouth in the morning and 2 Tablets at noon and 2 Tablets before bedtime. Active Blood Glucose Monitoring Suppl (Kwaab VERIO) w/Device KITIndications:Type 2 diabetes mellitus with hemoglobin A1c goal of less than 8.0% ([facility]) Use up to 4 times a day E11.9 1 Kit 04/15/2019 Active OneTouch Renae Lancets 33GIndications:Type 2 diabetes mellitus with hemoglobin A1c goal of less than 8.0% ([facility]) Use to test blood sugars once daily [...] differently:20 mg OralDAILY PRN, Reported on 01/22/2023 OneTouch Verio In Vitro Strip (Glucose Blood)Indications:T ype 2 diabetes mellitus with hemoglobin A1c goal of less than 8.0% ([facility]) Use to test blood sugars once daily [...] Active Additional Information Patient taking differently:3 mL [id number] PRN, Reported on 10/03/2023 Pantoprazole Sodium 40 [...] as of this encounter (statuses as of 05/05/2024) Active Problems Problem Noted Date Diagnosed Date [...] as of this encounter (statuses as of 05/05/2024) Resolved Problems Problem Noted Date Diagnosed Date [...] as of this encounter (statuses as of 05/05/2024) Immunizations Name Administration Dates Next Due Pneumococcal [...] Description 05/26/2024 11:10 AM EDT Anticoagulation Pharmacy, [place] [address] [place] [address] [place] [address] [place] [address] 09/08/2024 11:00 AM EDT Office Visit Cardiology, [facility] [address] [place] [address] Macy Denney PA-C [address] [place] [address] Health Maintenance Due Date Last Done Comments [...] filedocumented as of this encounter Care Teams Soap Grinder Relationship Specialty Start Date End Date Ankita March [place], HEIDIC [address] [place] [address] PCP - General Physician Rolloff Driver 01/20/19 documented as of this encounter
--- OUTSIDE RECORDS SUMMARY | 2024-08-14 21:27 | External Medical Summary ---
Author Name Unknown Address Unknown Organization K01:[facility] [place] [facility] [place] [address] [place] [address] Laboratory Report Ordering Provider Test Date Status GEORGES GOMES 04/22/2024 12:07:57 Final Observation Date Value Abnormality Reference (Units ) Status BUN 04/22/2024 12:07:57 30 Above high normal 6-20 (mg/dL) Final Creatinine 04/22/2024 12:07:57 0.9 0.5-1.0 (mg/dL) Final Glomerular filtration rate/1.73 sq M.predicted [Volume Rate/Area] in Serum, Plasma or Blood by Creatinine-based formula (CKD-EPI) 04/22/2024 12:07:57 62 >=60 (mL/min) Final eGFR is calculated based on the CKD-EPI 2020 equation Sodium 04/22/2024 12:07:57 139 135-146 (m mol/L) Final Potassium 04/22/2024 12:07:57 4.7 3.5-5.1 (m mol/L) Final Cl 04/22/2024 12:07:57 101 98-107 (mm ol/L) Final CO2 04/22/2024 12:07:57 24 22-32 (mmo l/L) Final Anion gap 04/22/2024 12:07:57 14 7-15 (mmol /L) Final Glucose 04/22/2024 12:07:57 152 Above high normal 70 -120 (mg/dL) Final Calcium 04/22/2024 12:07:57 9.8 8.4-10.2 ( mg/dL) Final Performing Location [facility] [place] [address] [place] [address]
--- OUTSIDE RECORDS SUMMARY | 2024-08-14 21:27 | External Medical Summary | Summary of Care ---
Author Name Unknown Organization [facility] Address [address] [facility] [place] [address] Phone [phone] Care Team Providers Care Director Student Union Name Role Phone [place] Marycruz Ledezma PA-C Primary Care Provider [phone] Reason for Visit * Reason Comments Outpatient Testing Encounter Details Date Type Department Care Team (Late st Contact Info) Description 04/22/2024 12:10 PM EDT Laboratory Laboratory, [place] [address] [place] [address] [place], [facility] [address] [place] [address] Type 2 diabetes mellitus with hemoglobin A1c goal of less than 8.0% ([facility]); Encounter for long-term (current) use of medications Allergies Active Allergy Reactions Criticality Noted Date Comments Adhesive Tape Itching,Rash 10/17/2016 Bimatoprost 05/14/2023 Celecoxib 10/16/2011 Codeine 12/31/2001 sick to stomach Latanoprost 05/14/2023 Sulfa Antibiotics 08/03/2005 Timolol 05/14/2023 Travoprost 05/14/2023 Dulaglutide Muscle pain 10/11/2021 documented as of this encounter (statuses as of 04/22/2024) Medications Medication Sig Dispensed Refills Start Date End Date Status GLUCOSAMINE 1500 COMPLEX PO CAPS one daily Active ALPHAGAN P 0.1 % OP SOLN as directed Active CALCIUM 500 +D 500-400 MG-UNIT PO TABS 1 daily Active [place] 3 1000 MG CAPS Take 1,000 mg by mouth 2 times a day. 05/24/2015 Active Magnesium 200 MG Tablet Take 2 Tablets by mouth in the morning and 2 Tablets at noon and 2 Tablets before bedtime. Active Blood Glucose Monitoring Suppl (Harbinger MedicalTOUCH VERIO) w/Device KITIndications:Type 2 diabetes mellitus with hemoglobin A1c goal of less than 8.0% (HCC) Use up to 4 times a day E11.9 1 Kit 04/15/2019 Active OneTouch [place] Lancets 33GIndications:Type 2 diabetes mellitus with [...] differently:20 mg OralDAILY PRN, Reported on 01/22/2023 Cell[employer] In Vitro Strip (Glucose Blood)Indications:T ype 2 [...] Active Additional Information Patient taking differently:3 mL [id number] PRN, Reported on 10/03/2023 Pantoprazole Sodium 40 [...] as of this encounter (statuses as of 04/22/2024) Active Problems Problem Noted Date Diagnosed Date [...] as of this encounter (statuses as of 04/22/2024) Resolved Problems Problem Noted Date Diagnosed Date [...] as of this encounter (statuses as of 04/22/2024) Immunizations Name Administration Dates Next Due Pneumococcal [...] Care Team (Late st Contact Info) Description 04/28/2024 1:00 PM EDT [facility] [place] [address] [facility] [address] [facility] [address] [facility] [address] 04/28/2024 1:10 PM EDT Office Visit Pharmacy, [place] [address] [facility] [address] [facility] [address] [place] [facility] [place] [address] 09/08/2024 11:00 AM EDT Office Visit Cardiology, [facility] [address] [place] [address] Macy Denney PA-C [address] [place] [address] Pending Results Name Type Priority Associated Diagnoses Date /Time HEMOGLOBIN A1C Lab Routine Type 2 diabetes mellitus with hemoglobin A1c goal of less than 8.0% ([facility]) 04/22/2024 12:07 PM EDT BASIC METABOLIC PANEL Lab Routine Type 2 diabetes mellitus with hemoglobin A1c goal of less than 8.0% ([facility]) 04/22/2024 12:07 PM EDT VITAMIN B12 Lab Routine Type 2 diabetes mellitus with hemoglobin A1c goal of less than 8.0% ([facility]) Encounter for long-term (current) use of medications 04/22/2024 12:07 PM EDT Health Maintenance Due Date Last Done Comments Zoster Vaccines (1 of 2) 1987 DXA Scan 09/21/2021 09/21/2014, 09/02, 01/30/2007 COVID-19 Vaccine ( - 2022- season) 2023 HbA1c 12/19/2023 06/18/2023, 12/0 07/2022, 05/17/2022, Additional history exists Depression Screening 05/14/2024 05/14/2023, 07/30/2017 (Discussed) Diabetic Foot Exam 05/14/2024 05/14/2023, 1 01/13/2018, 10/07/2017 Albumin/Creatinine Ratio 06/18/2024 06/18/2023, 05/02 Influenza Vaccine (FLU shot) (Season Ended) 2024 07/30/2017 (Unable to do), 09/17/2006, 09/21/2005, Additional history exists Diabetic Eye Exam 09/23/2024 09/23/2023, 03/16/2019 TSH 11/27/2024 11/27/2023, 12/0 07/2022, 10/10/2021, Additional history exists DTaP,Tdap,and Td Vaccines (2 [...] as of this encounter Visit Diagnoses Diagnosis Type 2 diabetes mellitus with hemoglobin A1c goal of less than 8.0% (HCC) Encounter for long-term (current) use of medications Encounter for long-term (current) use of other medications documented in this encounter Care Teams Director Student Union Relationship Specialty Start Date End Date Ankita March AGUSTINA [place] [address] [place], [place] [address] PCP - General Physician Metal Rivet Machine Operator 01/20/19 documented as of this encounter
--- OUTSIDE RECORDS SUMMARY | 2024-08-14 21:27 | External Medical Summary ---
Author Name Unknown Address Unknown Organization : Laboratory Report Ordering Provider Test Date Status GEORGES GOMES 04/28/2024 13:03:11 Final Therapeutic ranges for non-o perative patients:
Prophylaxsis/treatment of DVT: (Range:2.0-3.0)
Treatment of pulmonary embolism:(Range:2.0-3.0)
Prevention of systemic embolism from:
-tissue heart valves
-acute myocardial infarction
-valvular heart disease
-atrial fibrillation
(Range: 2.0-3.0)
Mechanical prosthetic valves: (Range: 2.5-3.5) Observation Date Value Abnormality Reference (Units ) Status INR in Capillary blood by Coagulation assay 04/28/2024 13:03:11 3.7 (INR) Final Performing Location
--- OUTSIDE RECORDS SUMMARY | 2024-08-14 21:27 | External Medical Summary | Summary of Care ---
Author Name Unknown Organization [facility] Address [address] [facility] [place] [address] Phone [phone] Care Team Providers Care Rn Lactation Name Role Phone Marycruz Luciano PA-C Primary Care Provider [phone] Reason for Visit * Reason Comments Dosage Adjustment In Person (Anticoag Cl inic) Diabetes Follow-Up Encounter Details Date Type Department Care Team (Late st Contact Info) Description 04/28/2024 1:10 PM EDT Office Visit Pharmacy, [place] [address] [place] [address] [facility] [address] [place] [address] Type 2 diabetes mellitus with hemoglobin A1c goal of less than 8.0% ([facility])* Allergies Active Allergy Reactions Criticality Noted Date [...] 500-400 MG-UNIT PO TABS 1 daily Active Derwent 3 1000 MG CAPS Take 1,000 mg by mouth 2 times a day. 05/24/2015 Active Magnesium 200 MG Tablet Take 2 Tablets by mouth in the morning and 2 Tablets at noon and 2 Tablets before bedtime. Active Blood Glucose Monitoring Suppl (WalmooUCH VERIO) w/Device KITIndications:Type 2 diabetes mellitus with [...] differently:20 mg OralDAILY PRN, Reported on 01/22/2023 Xray Imatek In Vitro Strip (Glucose Blood)Indications:T ype 2 [...] Active Additional Information Patient taking differently:3 mL [id number] PRN, Reported on 10/03/2023 Pantoprazole Sodium 40 [...] of this encounter Progress Notes * Lamar Holden, [facility] - 04/28/2024 12:52 PM EDT Medication Therapy Disease Management Clinic - Diabetes Management Progress Note Lola Escobedo, identified by name and date of , is a 89 year old female being seen for diabetes management/education. Patient presents for return diabetic visit. DIABETES: Current diabetic medications: Metformin ER 500mg, 2 tablets twice daily Ozempic 1mg once weekly - patient is not taking eGFR 73 mL/min as of 11/08/22 Medication Injection Site: N/A Lifestyle: Diet: unchanged Glucose Review/SMBG: Hypoglycemia: Does your blood sugar go below 70 mg/dL? No Hyperglycemia symptoms present: none Recent Labs Units 04/22/24 1207 06/18/23 0901 11/08/22 1134 HEMOGLOBIN A1C - [facility] % 8.6* 7.5* 7.7* Recent Labs Units 04/22/24 1207 06/18/23 0901 11/08/22 1134 ESTIMATED GLOMERULAR FILTRATION RATE - [facility] mL/min 59* | 62 53* 73 CREATININE - [facility] mg/dL 0.9 | 0.9 1.0 0.8 HYPERTENSION: Patient on ACEi/ARB: yes BP Readings from Last 3 Encounters: 11/27/23 110/74 10/03/23 128/72 09/25/23 118/74 Blood pressure at goal: yes HYPERLIPIDEMIA: Patient is taking moderate or high intensity statin: No, not indicated The ASCVD Risk score (Renate REYNOSO, et al., 2019) failed to calculate for the following reasons: The 2019 ASCVD risk score is only valid for ages 40 to 79 Recent Labs Units 06/18/23 0901 LDL CHOLESTEROL (CALCULATED) - [facility] mg/dL 90 HEALTH MAINTENANCE REVIEW: Health Maintenance Due Topic Date Due Zoster Vaccines (1 of 2) Never done DXA Scan 09/21/2021 COVID-19 Vaccine (2022- season) Never done Diabetic Foot Exam 05/14/2024 Depression Screening 05/14/2024 Albumin/Creatinine Ratio 06/18/2024 ASSESSMENT & PLAN: ICD-10-CM 1. Type 2 diabetes mellitus with hemoglobin A1c goal of less than 8.0% ([facility]) E11.9 Considerations: - renal function - jardiance caused yeast infections - Trulicity caused joint issues - Ozempic - stomach upset at 1 mg dose - cost, does not wish to pursue assistance programs though BG Readings - Blood sugars uncontrolled. A1c has increased since last check. Patient attributes it to lack of activity and also indulging in foods that she wants. A1c to be repeated in 3 months to see if pt can make improvements on her own. Medications - Reviewed current regimen, patient is adherent to regimen. Taking only metformin at this time- renal function supports dosing right now, but will need to monitor. Discussed with patient the goal A1c of less than 8%. Discussed about re-trying ozempic at a lower dose- pt does not wish to pay for ozempic, as she hits the donut hole and the cost of it is ridiculous. Discussed starting low dose glipizide- pt does not wish to do so due to concern for weight gain. Diet, Exercise, Lifestyle - Best efforts encouraged to re-focus to improve her carb intake and overall activity level . Just purchased a new machine from [employer] that she is hopeful will increase her activity level. Patient is agreeable to SMBG 0-1 time(s) daily. Patient aware to contact clinic if any hypoglycemia before next visit. MEDICATION CHANGES: no change per patient preference Diabetic Medications: Metformin ER 500mg, 2 tablets twice daily eGFR 59 mL/min as of 04/22/24 HEALTH MAINTENANCE INTERVENTIONS: Labs: Ordered & Scheduled: HgA1c and BMP/CMP Immunizations: defers Foot Exam: Up to Date Eye Exam: Up to Date Annual Wellness Visit: N/A FOLLOW UP: Return to clinic in 12 weeks Lamar Holden RPh Clinical Pharmacist - Sixth Grade Teacher Medication Therapy Management Clinic 04/28/2024, 12:52 PM documented in this encounter Plan of Treatment Upcoming Encounters Date Type Department Care Team (Late st Contact Info) Description 05/26/2024 11:10 AM EDT Anticoagulation Pharmacy, [place] [address] [place] [address] [facility] [address] [place] [address] 09/08/2024 11:00 AM EDT Office Visit Cardiology, [facility] [address] [place] [address] Macy Denney PA-C [address] [place] [address] Scheduled Orders Name Type Priority Associated Diagnoses Orde r Schedule HEMOGLOBIN A1C Lab Routine Type 2 diabetes mellitus with hemoglobin A1c goal of less than 8.0% (HCC) Expected: 08/04/2024 (Approximate), Expires: 04/28/2025 BASIC METABOLIC PANEL Lab Routine Type 2 diabetes mellitus with hemoglobin A1c goal of less than 8.0% (HCC) Expected: 07/29/2024 (Approximate), Expires: 04/28/2025 Health Maintenance Due Date Last Done Comments [...] hemoglobin A1c goal of less than 8.0% (HCC)- Primary documented in this encounter Care Teams Rn Lactation Relationship Specialty Start Date End Date Ankita Marycruz [place], [facility] [address] [place] [address] PCP - General Physician Shine Worker 01/20/19 documented as of this encounter"
--- OUTSIDE RECORDS SUMMARY | 2024-08-14 21:27 | External Medical Summary | Summary of Care ---
Author Name Unknown Organization [facility] Address [address] [facility] [place] [address] Phone [phone] Care Team Providers Care Finish Painter Name Role Phone Marycruz Luciano PA-C Primary Care Provider [phone] Reason for Visit * Reason Comments eRx-Medication Refill Encounter Details Date Type Department Care Team (Late st Contact Info) Description 03/24/2024 Refill Family Practice [facility] [address] [facility] [place] [address] Marycruz Luciano PA-C [address] [facility] [place] [address] Hypothyroidism due to acquired atrophy of thyroid Allergies Active Allergy Reactions Criticality Noted Date Comments Adhesive Tape Itching,Rash 10/17/2016 Bimatoprost 05/14/2023 Celecoxib 10/16/2011 Codeine 12/31/2001 sick to stomach Latanoprost 05/14/2023 Sulfa Antibiotics 08/03/2005 Timolol 05/14/2023 Travoprost 05/14/2023 Dulaglutide Muscle pain 10/11/2021 documented as of this encounter (statuses as of 03/25/2024) Medications Medication Sig Dispensed Refills Start Date End Date Status GLUCOSAMINE 1500 COMPLEX PO CAPS one daily 0 Active ALPHAGAN P 0.1 % OP SOLN as directed 0 Active CALCIUM 500 +D 500-400 MG-UNIT PO TABS 1 daily 0 Active [place] 3 1000 MG CAPS Take 1,000 mg by mouth 2 times a day. 0 05/24/2015 Active Magnesium 200 MG Tablet Take 2 Tablets by mouth in the morning and 2 Tablets at noon and 2 Tablets before bedtime. 0 Active Blood Glucose Monitoring Suppl (Verbling VERRocksBox) w/Device KITIndications:Ty pe 2 diabetes mellitus with hemoglobin A1c goal of less than 8.0% (HCC) Use up to 4 times a day E11.9 1 Kit 0 04/15/2019 Active Juneau BiosciencesTouch Renae Lancets 33GIndications:Ty pe 2 diabetes mellitus [...] differently:20 mg OralDAILY PRN, Reported on 01/22/2023 AnybodyOutThere In Vitro Strip (Glucose Blood)Indications :Type 2 [...] bedtime if needed for anxiety 30 Tablet 0 04/09/2023 Active Ipratropium-Albut loreta 0.5-2.5 (3) MG/3ML Inhalation Solution (Duoneb)Indicatio ns:Bronchitis, complicated Inhale 3 mL via nebulizer in the morning and 3 mL at noon and 3 mL before bedtime. 150 mL 5 05/14/2023 Active Additional Information Patient taking differently:3 mL [id number] PRN, Reported on 10/03/2023 Pantoprazole Sodium 40 MG Oral Tablet Delayed Release (Protonix) take 1 tablet by mouth every morning 30 MINUTES BEFORE THE FIRST MEAL.DO NOT CRUSH,SPLIT OR CHEW TABLET 30 Tablet 5 07/10/2023 Active Additional Information Patient not taking.Reported on 11/27/2023 Losartan Potassium 100 MG Oral Tablet (Cozaar)Indicatio ns:HTN, goal below 140/90 take 1 tablet by mouth once daily 90 Tablet 2 08/07/2023 Active Spironolactone 25 MG Oral Tablet (Aldactone)Indica tions:Persistent [...] OTHER MEDS 90 Tablet 2 03/25/2024 Active Levothyroxine Sodium 137 MCG Oral TabletIndications :Hypothyroidism due to acquired atrophy of thyroid take 1 tablet by mouth once daily AT LEAST 30 MINUTES PRIOR TO BREAKFAST OR OTHER MEDS 90 Tablet 0 09/10/2023 03/25/20 24 Discontinued documented as of this encounter (statuses as of 03/25/2024) Active Problems Problem Noted Date Diagnosed Date [...] as of this encounter (statuses as of 03/25/2024) Resolved Problems Problem Noted Date Diagnosed Date [...] as of this encounter (statuses as of 03/25/2024) Immunizations Name Administration Dates Next Due Pneumococcal [...] encounter Miscellaneous Notes * Telephone Encounter - Gricelda Bhakta RPh - 03/25/2024 10:30 AM EDTSigned Prescriptions: Disp Refills Levothyroxine Sodium 137 MCG Oral Tablet 90 Tab*2 Sig: take 1 tablet by mouth once daily AT LEAST 30 MINUTES PRIOR TO BREAKFAST OR OTHER MEDSAuthorizing Provider: MARYCRUZ LUCIANO User: GRICELDA BHAKTA documented in this encounter Plan of Treatment Upcoming Encounters Date Type Department Care Team (Late st Contact Info) Description 04/28/2024 1:00 PM EDT Anticoagulation Pharmacy [facility] [place] [address] [facility] [address] [place] [address] 04/28/2024 1:10 PM EDT [facility] [place] [address] [facility] [address] [facility] [address] 09/08/2024 11:00 AM EDT Office Visit Cardiology, [facility] [address] [place] [address] Macy Denney, AGUSTINA [address] [place] [address] Health Maintenance Due Date Last Done Comments Zoster Vaccines (1 of 2) 1987 DXA Scan 09/21/2021 09/21/2014, 09/02, 01/30/2007 COVID-19 Vaccine ( season) 2023 HbA1c 12/19/2023 06/18/2023, 1207/2022, 05/17/2022, Additional history exists Depression Screening 05/14/2024 05/14/2023, 07/30/2017 (Discussed) Diabetic Foot Exam 05/14/2024 05/14/2023, 1 01/13/2018, 10/07/2017 Albumin/Creatinine Ratio 06/18/2024 06/18/2023, 05/02 Influenza Vaccine (FLU shot) (Season Ended) 2024 07/30/2017 (Unable to do), 09/17/2006, 09/21/2005, Additional history exists Diabetic Eye Exam 09/23/2024 09/23/2023, 03/16/2019 TSH 11/27/2024 11/27/2023, 1207/2022, 10/10/2021, Additional history exists DTaP,Tdap,and Td Vaccines [...] as of this encounter Visit Diagnoses Diagnosis Hypothyroidism due to acquired atrophy of thyroid documented in this encounter Care Teams Finish Painter Relationship Specialty Start Date End Date Ankita March AGUSTINA Ledezma [address] [facility] [place] [address] PCP - General Physician Molded Goods Operator 01/20/19 documented as of this encounter
--- OUTSIDE RECORDS SUMMARY | 2024-08-14 21:27 | External Medical Summary | Summary of Care ---
Author Name Unknown Organization [facility] Address [address] [facility] [address] Phone [phone] Care Team Providers Care Bottle Washer Machine Name Role Phone Alvajoshua Marycruz [place]arien BERRIOS Primary Care Provider [phone] Reason for Visit * Reason Comments Dosage Adjustment In Person (Anticoag Cl inic) Encounter Details Date Type Department Care Team (Latest Contact Info) Description 03/03/2024 1:00 PM EDT Anticoagulation Pharmacy, [place] [address] [place] [address] [facility] [address] [place] [address] Persistent atrial fibrillation (HCC)*; Lung nodule Allergies Active Allergy Reactions Criticality Noted Date Comments Adhesive Tape Itching,Rash 10/17/2016 Bimatoprost 05/14/2023 Celecoxib 10/16/2011 Codeine 12/31/2001 sick to stomach Latanoprost 05/14/2023 Sulfa Antibiotics 08/03/2005 Timolol 05/14/2023 Travoprost 05/14/2023 Dulaglutide Muscle pain 10/11/2021 documented as of this encounter (statuses as of 03/03/2024) Medications Medication Sig Dispensed Refills Start Date End Date Status GLUCOSAMINE 1500 COMPLEX PO CAPS one daily 0 Active ALPHAGAN P 0.1 % OP SOLN as directed 0 Active CALCIUM 500 +D 500-400 MG-UNIT PO TABS 1 daily 0 Active Donaldson 3 1000 MG CAPS Take 1,000 mg by mouth 2 times a day. 0 05/24/2015 Active Magnesium 200 MG Tablet Take 2 Tablets by mouth in the morning and 2 Tablets at noon and 2 Tablets before bedtime. 0 Active Blood Glucose Monitoring Suppl (Charles SchwabTOUCH VERIO) w/Device KITIndications:Type 2 diabetes mellitus with hemoglobin A1c goal of less than 8.0% (HCC) Use up to 4 times a day E11.9 1 Kit 0 04/15/2019 Active OneTouch Renae Lancets 33GIndications:Type 2 [...] differently:20 mg OralDAILY PRN, Reported on 01/22/2023 Hypori In Vitro Strip (Glucose Blood)Indications:T ype 2 [...] for anxiety 30 Tablet 0 04/09/2023 Active Ipratropium-Albuter ol 0.5-2.5 (3) MG/3ML Inhalation Solution (Duoneb)Indications :Bronchitis, complicated Inhale 3 mL via nebulizer in the morning and 3 mL at noon and 3 mL before bedtime. 150 mL 5 05/14/2023 Active Additional Information Patient taking differently:3 mL [id number] PRN, Reported on 10/03/2023 Pantoprazole Sodium 40 [...] once daily 90 Tablet 2 08/07/2023 Active Levothyroxine Sodium 137 MCG Oral TabletIndications:H ypothyroidism due to acquired atrophy of thyroid take 1 tablet by mouth once daily AT LEAST 30 MINUTES PRIOR TO BREAKFAST OR OTHER MEDS 90 Tablet 0 09/10/2023 Active Spironolactone 25 MG Oral Tablet (Aldactone)Indicati [...] A DAY 360 Tablet 1 02/15/2024 Active documented as of this encounter (statuses as of 03/03/2024) Active Problems Problem Noted Date Diagnosed Date [...] as of this encounter (statuses as of 03/03/2024) Resolved Problems Problem Noted Date Diagnosed Date [...] as of this encounter (statuses as of 03/03/2024) Immunizations Name Administration Dates Next Due Pneumococcal [...] Progress Notes * Lamar Holden RPh - 03/03/2024 12:52 PM EDT Medication Therapy Disease Management - Anticoagulation Patient: Lola Escobedo | : 1935 Subjective Patient-Reported Symptoms: Patient Findings Positives: Change in medications (started taking balance of nature veggies and fruits supplements) Negatives: Signs/symptoms of thrombosis, Signs/symptoms of bleeding, Change in health, Change in alcohol use, Change in activity, Upcoming invasive procedure, Missed doses, Extra doses, Change in diet/appetite, Bruising Objective Current Warfarin Dose As of 03/03/2024 Warfarin maintenance plan: 2.5 mg (5 mg x 0.5) every Sun, Tue, Roxie; 5 mg (5 mg x 1) all other days INR Result As of 03/03/2024 INR goal: 2.0-3.0 INR used for dosin.3 (03/03/2024) Assessment & Plan Warfarin Plan As of 03/03/2024 Full warfarin instructions: 03/03: Hold; Otherwise 2.5 mg every Sun, Tue, Roxie; 5 mg all other days Next INR check: 04/28/2024 Repeat PT/INR in 8 week(s) Weekly dose: not changed Additional Dosing Information: Description Lamar Holden RPh Clinical Pharmacist 03/03/2024, 12:52 PM documented in this encounter Plan of Treatment Upcoming Encounters Date Type Department Care Team (Late st Contact Info) Description 04/28/2024 1:00 PM EDT Anticoagulation Pharmacy, [address] [place], [place] [address] [facility] [address] [facility], [place] [address] 04/28/2024 1:10 PM EDT Office Visit Pharmacy, [place] [address] [facility], [place] [address] [facility] [address] [facility], [place] [address] Health Maintenance Due Date Last Done Comments Zoster Vaccines (1 of 2) 1987 DXA Scan 09/21/2021 09/21/2014, 09/02, 01/30/2007 COVID-19 Vaccine ( season) 2023 HbA1c 12/19/2023 06/18/2023, 07/2022, 05/17/2022, Additional history exists Depression Screening 05/14/2024 05/14/2023, 07/30/2017 (Discussed) Diabetic Foot Exam 05/14/2024 05/14/2023, 1 01/13/2018, 10/07/2017 Albumin/Creatinine Ratio 06/18/2024 06/18/2023, 05/02 Influenza Vaccine (FLU shot) (Season Ended) 2024 07/30/2017 (Unable to do), 09/17/2006, 09/21/2005, Additional history exists Diabetic Eye Exam 09/23/2024 09/23/2023, 03/16/2019 TSH 11/27/2024 11/27/2023, 120 07/2022, 10/10/2021, Additional history exists DTaP,Tdap,and Td [...] Comments INR FINGERSTICK, POINT OF CARE STAT 03/03/2024 1:02 PM EDT Persistent atrial fibrillation (HCC) documented in this encounter Results * INR FINGERSTICK, POINT OF CARE (03/03/2024 1:02 PM EDT) Fingerstick INR 3.3 INR 4 1:04 PM EDT [facility] Blood 03/03/2024 1:02 PM EDT 03/03/2024 1:04 PM EDT Narrative [facility] - 03/03/2024 1:04 PM EDT Therapeutic ranges for non-operative patients: Prophylaxsis/treatment of DVT: (Range:2.0-3.0) Treatment of pulmonary embolism:(Range:2.0-3.0) Prevention of systemic embolism from: -tissue heart valves -acute myocardial infarction -valvular heart disease -atrial fibrillation (Range: 2.0-3.0) Mechanical prosthetic valves: (Range: 2.5-3.5) Josr Roper [facility] LAB POINT O F CARE TEST DOCKED DEVICE UNSOLICITED RESULTS Performing Organization Address City/State/[facility] Co de Phone Number [facility] [address] [place], [place] [phone] documented in this encounter Visit Diagnoses Diagnosis Persistent atrial fibrillation (HCC)- Primary Atrial fibrillation Lung nodule Solitary pulmonary nodule documented in this encounter Care Teams Bottle Washer Machine Relationship Specialty Start Date End Date AnkitaMarch AGUSTINA Ledezma [address] [place] [address] PCP - General Physician Funeral Home General Manager 01/20/19 documented as of this encounter"
--- OUTSIDE RECORDS SUMMARY | 2024-08-14 21:27 | External Medical Summary ---
Author Name Unknown Address Unknown Organization [id number]:[facility]ATORY [facility] [address] [facility] [place] [address] Laboratory Report Ordering Provider Test Date Status 04/22/2024 12:07:57 Final Observation Date Value Abnormality Reference (Units ) Status BUN 04/22/2024 12:07:57 30 Above high normal 6-20 (mg/dL) Final Creatinine 04/22/2024 12:07:57 0.9 0.5-1.0 (mg/dL) Final Glomerular filtration rate/1.73 sq M.predicted [Volume Rate/Area] in Serum, Plasma or Blood by Creatinine-based formula (CKD-EPI) 04/22/2024 12:07:57 59 Below low normal >=60 (mL/min) Final eGFR is calculated based on the CKD-EPI 2020 equation
eGFR is calculated based on the CKD-EPI 2020 equation Sodium 04/22/2024 12:07:57 139 135-146 (m mol/L) Final Potassium 04/22/2024 12:07:57 4.7 3.5-5.1 (m mol/L) Final Cl 04/22/2024 12:07:57 101 98-107 (mm ol/L) Final CO2 04/22/2024 12:07:57 16 Below low normal 22- 32 (mmol/L) Final Anion gap 04/22/2024 12:07:57 22 Above high normal 7- 15 (mmol/L) Final Glucose 04/22/2024 12:07:57 157 Above high normal 70 -120 (mg/dL) Final Albumin 04/22/2024 12:07:57 4.9 3.8-5.0 (g /dL) Final AST (Aspartate aminotransferase) 04/22/2024 12:07:57 28 10-35 (U/L) Fin al Result may be falsely elevat ed due to hemolysis. Alk Phos 04/22/2024 12:07:57 79 35-130 (U/ L) Final Bilirubin, Total 04/22/2024 12:07:57 1.1 <=1 .2 (mg/dL) Final Calcium 04/22/2024 12:07:57 9.8 8.4-10.2 ( mg/dL) Final Protein 04/22/2024 12:07:57 7.3 6.0-8.3 (g /dL) Final ALT (Alanine aminotransferase) 04/22/2024 12:07:57 24 10-35 (U/L) Final Performing Location LABORATORY [facility] - [facility] [address]
--- OUTSIDE RECORDS SUMMARY | 2024-08-14 21:27 | External Medical Summary ---
Author Name Unknown Address Unknown Organization K01:LABORATORY [facility] - [address] [place] [address] Laboratory Report Ordering Provider Test Date Status 04/22/2024 12:07:57 Final Observation Date Value Abnormality Reference (Units ) Status TSH 04/22/2024 12:07:57 3.17 0.27-4.20 (uIU/mL) Final Performing Location LABORATORY [facility] - [address] [place] [address]
[2024-08-14] MEDS ORDERED: HYDROmorphone INJ 0.5 MG/0.5 ML SYR IV PRN (21:28)
--- OUTSIDE RECORDS SUMMARY | 2024-08-14 21:28 | External Medical Summary ---
Author Name Unknown Address Unknown Organization : Laboratory Report Ordering Provider Test Date Status GEORGES GOMES 03/03/2024 13:02:53 Final Therapeutic ranges for non-o perative patients:
Prophylaxsis/treatment of DVT: (Range:2.0-3.0)
Treatment of pulmonary embolism:(Range:2.0-3.0)
Prevention of systemic embolism from:
-tissue heart valves
-acute myocardial infarction
-valvular heart disease
-atrial fibrillation
(Range: 2.0-3.0)
Mechanical prosthetic valves: (Range: 2.5-3.5) Observation Date Value Abnormality Reference (Units ) Status INR in Capillary blood by Coagulation assay 03/03/2024 13:02:53 3.3 (INR) Final Performing Location
--- OUTSIDE RECORDS SUMMARY | 2024-08-14 21:28 | External Medical Summary | Summary of Care ---
Author Name Unknown Organization [facility] Address [address] [facility] [place] [address] Phone [phone] Care Team Providers Care Supervisor [address] Name Role Phone AlvaMarycruz lewis Darien BERRIOS Primary Care Provider [phone] Encounter Details Date Type Department Care Team (Late st Contact Info) Description 02/17/2024 Orders Only PATIENT PORTAL DO NOT DELETE THIS DEPT USED BY [place] [id number] Allergies Active Allergy Reactions Criticality Noted Date Comments Adhesive Tape Itching,Rash 10/17/2016 Bimatoprost 05/14/2023 Celecoxib 10/16/2011 Codeine 12/31/2001 sick to stomach Latanoprost 05/14/2023 Sulfa Antibiotics 08/03/2005 Timolol 05/14/2023 Travoprost 05/14/2023 Dulaglutide Muscle pain 10/11/2021 documented as of this encounter (statuses as of 02/17/2024) Medications Medication Sig Dispensed Refills Start Date End Date Status GLUCOSAMINE 1500 COMPLEX PO CAPS one daily 0 Active ALPHAGAN P 0.1 % OP SOLN as directed 0 Active CALCIUM 500 +D 500-400 MG-UNIT PO TABS 1 daily 0 Active Monette 3 1000 MG CAPS Take 1,000 mg by mouth 2 times a day. 0 05/24/2015 Active Magnesium 200 MG Tablet Take 2 Tablets by mouth in the morning and 2 Tablets at noon and 2 Tablets before bedtime. 0 Active Blood Glucose Monitoring Suppl (Operation Supply Drop VERIO) w/Device KITIndications:Type 2 diabetes mellitus with hemoglobin A1c goal of less than 8.0% (HCC) Use up to 4 times a day E11.9 1 Kit 0 04/15/2019 Active Dot Cline 33GIndications:Type 2 diabetes mellitus with hemoglobin [...] hemoglobin A1c goal of less than 8.0% ([facility]) Use to test blood sugars once [...] Active Additional Information Patient taking differently:3 mL [id number] PRN, Reported on 10/03/2023 Pantoprazole Sodium 40 [...] as of this encounter (statuses as of 02/17/2024) Active Problems Problem Noted Date Diagnosed Date [...] as of this encounter (statuses as of 02/17/2024) Resolved Problems Problem Noted Date Diagnosed Date [...] as of this encounter (statuses as of 02/17/2024) Immunizations Name Administration Dates Next Due Pneumococcal [...] as of this encounter Plan of Treatment Health Maintenance Due Date Last Done Comments Zoster Vaccines (1 of 2) 1987 DXA Scan 09/21/2021 09/21/2014, 09/02, 01/30/2007 COVID-19 Vaccine ( season) 2023 Influenza Vaccine (FLU shot) (#1) 2023 07/30/2017 (Unable to do), 09/17/2006, 09/21/2005, Additional history exists HbA1c 12/19/2023 06/18/2023, 07/2022, 05/17/2022, Additional history exists Depression Screening 05/14/2024 05/14/2023, 07/30/2017 (Discussed) Diabetic Foot Exam 05/14/2024 05/14/2023, 1 01/13/2018, 10/07/2017 Albumin/Creatinine Ratio 06/18/2024 06/18/2023, 05/02 Diabetic Eye Exam 09/23/2024 09/23/2023, 03/16/2019 TSH [...] filedocumented as of this encounter Care Teams Supervisor [address] Relationship Specialty Start Date End Date AnkitaMarch AGUSTINA Ledezma [address] [place] [address] PCP - General Physician Tobacco Dipper 01/20/19 documented as of this encounter
[2024-08-14] MEDS: PROMETHAZINE 6.25 MG/50.25 ML BAG IV STA (21:35)
[2024-08-15] MEDS: HYDROmorphone INJ 0.5 MG/0.5 ML SYR IV STA (01:00)
--- NOTE | 2024-08-15 01:09 | History & Physical Report ---
Date of Service August 15, 2024 Assessment & Plan (1) Acute UTI: Plan: 89-year-old female with past medical history significant for type 2 diabetes, hypothyroidism, hyperlipidemia, lung nodule, hypertension, persistent atrial fibrillation, moderate mitral regurgitation, severe tricuspid regurgitation, peripheral vascular disease, hypertensive heart disease, morbid obesity, primary open-angle glaucoma bilateral moderate stage, PAIGE, congenital obstruction of ureteropelvic junction and s/p robotic pyeloplasty in 2005 with mild residual left UPJ with renal cyst ,simple and complex and also renal AML lives alone at home ambulates with a cane, son and daughter lives close by comes because of severe left flank pain and nausea and vomiting. Patient states 10 days ago while she was climbing steps in the basement which are made of concrete she fell backwards and has a bruise on her right posterior elbow region and distal right menendez and left lower back. She was not able to get up. Her family helped her get up and once she got up she was ambulating okay. But she is having pain in the left flank region. Today she was having a lot of nausea vomiting. And also a lot of pain in the left flank region which prompted her to come to the ER. Micturating okay. Denies any hematuria. Normal bowel movements. Denies chest pain. She gets short of breath on exertion. Does not use any oxygen at home. No fevers. No cough. No headache. No dizziness. No runny nose or sore throat. Hemodynamics are okay. Has edema in lower extremity and patient says uses Lasix as needed for edema. Acute UTI Started on Rocephin Will follow cultures Left flank pain Recent fall Bruise seen on the left lower back Patient has history of left congenital UPJ obstruction status post robotic pyeloplasty in 2005 CT abdomen pelvis no acute internal traumatic findings Pain could be from the fall or could be pyelonephritis Pain control Will monitor Recent fall Bruise is seen in posterior aspect of right elbow, distal right menendez, left lower back CT abdomen pelvis, CT head, CT chest no acute findings PT OT when stable Patient use cane while ambulating Right breast nodule On the CT scan. 18 mm Needs follow-up Chronic diastolic CHF Valvular heart disease Lower extremity edema On spironolactone Lasix as needed Will monitor Persistent atrial fibrillation On Coumadin. Not on rate control medications. Poor tolerance of increased rate control as per cardiology notes INR 3.1 Follow PT/INR Will monitor Hypothyroidism On Synthyroid Diabetes Hold metformin Sliding scale Follow HbA1c Will monitor Hypertension On losartan, spironolactone Will monitor. Anxiety On lorazepam as needed Primary open-angle glaucoma bilaterally Continue home eyedrops Morbid obesity counseling Follow-up Peripheral vascular disease On Coumadin Renal cyst Seems chronic Follow-up DVT prophylaxis On Coumadin. INR 3.1 Disposition Med/telemetry Full code. History of Present Illness Chief Complaint: Left flank pain Primary Care Provider: Marycruz Luciano PA-C 89-year-old female with past medical history significant for type 2 diabetes, hypothyroidism, hyperlipidemia, lung nodule, hypertension, persistent atrial fibrillation, moderate mitral regurgitation, severe tricuspid regurgitation, peripheral vascular disease, hypertensive heart disease, morbid obesity, primary open-angle glaucoma bilateral moderate stage, PAIGE, congenital obstruction of ureteropelvic junction and s/p robotic pyeloplasty in 2005 with mild residual left UPJ with renal cyst ,simple and complex and also renal AML lives alone at home ambulates with a cane, son and daughter lives close by comes because of severe left flank pain and nausea and vomiting. Patient states 10 days ago while she was climbing steps in the basement which are made of concrete she fell backwards and has a bruise on her right posterior elbow region and distal right menendez and left lower back. She was not able to get up. Her family helped her get up and once she got up she was ambulating okay. But she is having pain in the left flank region. Today she was having a lot of nausea vomiting. And also a lot of pain in the left flank region which prompted her to come to the ER. Micturating okay. Denies any hematuria. Normal bowel movements. Denies chest pain. She gets short of breath on exertion. Does not use any oxygen at home. No fevers. No cough. No headache. No dizziness. No runny nose or sore throat. Hemodynamics are okay. Has edema in lower extremity and patient says uses Lasix as needed for edema. Past medical history. As mentioned above Past surgical history. Appendectomy. Colonoscopy. Removal of ovary. Cholecystectomy. Total hysterectomy. Social history. . No smoking. No alcohol use. No drug use. Family history. Father had arthritis. Heart disorder. Mother had arthritis. Hypertension. Stroke. Sister had stroke. Niece had Breast cancer. Brother had cancer. Allergies Allergy/AdvReac Type Severity Reaction Status Date / Time codeine Allergy Mild N/V Verified 08/14/24 22:28 adhesive tape Allergy Unknown Rash Verified 08/14/24 22:28 celecoxib [From Celebrex] Allergy Unknown Unknown Verified 08/14/24 22:28 Sulfa (Sulfonamide Allergy Unknown ITCHING/HIV Verified 08/14/24 22:28 Antibiotics) ES benzalkonium chloride AdvReac Unknown "DID NOT Verified 08/14/24 22:28 WORK" bimatoprost AdvReac Unknown "DID NOT Verified 08/14/24 22:28 WORK dulaglutide [From Trulicity] AdvReac Unknown Muscle Pain Verified 08/14/24 22:28 timolol AdvReac Unknown "DID NOT Verified 08/14/24 22:28 WORK" travoprost AdvReac Unknown DID NOT Verified 08/14/24 22:28 WORK Home Medications Medication Instructions Recorded Confirmed Type furosemide 20 mg tablet 20 mg PO DAILY PRN swelling 11/03/18 08/14/24 History lorazepam 1 mg tablet 1 mg PO HS PRN Anxiety 11/03/18 08/14/24 History losartan 100 mg tablet 100 mg PO DAILY 11/03/18 08/14/24 History potassium chloride 10 mEq 10 meq PO DAILY PRN Fluid Retention 11/03/18 08/14/24 History tablet,extended release(part/cryst) spironolactone 25 mg tablet 12.5 mg PO DAILY 11/03/18 08/14/24 History warfarin 5 mg tablet 2.5 - 5 mg PO DAILY 11/03/18 08/14/24 History brimonidine 0.1 % eye drops 1 drp OPB TID 02/01/22 08/14/24 History (Alphagan P) calcium carbonate 500 mg-vitamin 1 tab PO DAILY 02/01/22 08/14/24 History D3 10 mcg (400 unit) tablet (Calcium 500 + D) [id number] C-Mn 500 1 cap PO DAILY 02/01/22 08/14/24 History mg-400 mg capsule levothyroxine 137 mcg tablet 137 mcg PO DAILYBB 02/01/22 08/14/24 History magnesium 200 mg tablet 400 mg PO TID 02/01/22 08/14/24 History metformin 500 mg tablet,extended 500 mg PO BID 02/01/22 08/14/24 History release 24 hr omega-3 fatty acids 1,000 mg PO DAILY 02/01/22 08/14/24 History Past Med/Surg History Problem List Acute UTI Hypertension (Chronic) Atrial fibrillation (Chronic) Hypothyroidism (Chronic) Dyslipidemia (Chronic) Depression (Chronic) Congenital obstruction of ureteropelvic junction (UPJ) (Chronic) S/P hysterectomy (Chronic) S/P cholecystectomy (Chronic) S/P appendectomy (Chronic) Social History Smoking Status: Never smoker Hx Alcohol Use: No Hx Substance Use: No Preferred Language: Icelandic Communication Ability: Effective Manager Ems Required: No Beliefs That Will Affect Care: None Current Living Situation: Alone Current Living Situation Comment: lives at home alone Other Information That Helps Us Care for You: No Feels Safe at Home: Yes Safety Concerns: Feels Safe At This Time Assistive Devices: Cane, Hospital Bed, Oxygen - Continuous and Walker Review of Systems Review of Systems: All systems reviewed & are unremarkable except as noted in HPI & below Physical Exam Physical Exam: General- Not in distress Head- atraumatic Eyes- PERRL. ENT- oropharynx clear Neck- supple, no JVD. Lungs- clear to auscultation no wheezing or crackles Heart- regular rhythm; no murmur, no gallop. Abdomen- normal bowel sounds, soft, nontender, no distension Extremities- b/l lower extremity gross edema present, bruise seen on right menendez. Neuro- alert, oriented ; PERRL, no facial palsy; no dysarthria; moves extremities Skin- bruise seen on posterior aspect of right elbow, distal right menendez and left lower back close to spine. Results & Data Results & Data Vital Signs (Past 12 Hours) Vital Signs Temp Pulse Pulse Resp BP BP Pulse Ox 08/15/24 00:12 89 18 127/81 99 08/14/24 23:00 98 H 20 148/79 H 99 08/14/24 22:00 109 H 22 166/98 H 98 08/14/24 21:00 101 H 18 125/85 100 08/14/24 20:39 102 H 08/14/24 17:48 115 H 18 165/113 H 94 08/14/24 16:41 115 H 08/14/24 15:48 36.8 C 107 H 20 198/94 H 97 O2 Del Method O2 Flow Rate 08/15/24 00:12 Nasal Cannula 2 08/14/24 23:00 Nasal Cannula 2 08/14/24 22:00 Nasal Cannula 2 08/14/24 21:00 Nasal Cannula 2 08/14/24 20:39 08/14/24 17:48 Room Air 08/14/24 16:41 08/14/24 15:48 Room Air Diagnostic Findings Laboratory Results WBC 8.01 K/ul (4.8-10.8) 08/14/24 17:37 RBC 4.55 M/uL (4.20-5.40) 08/14/24 17:37 Hgb 14.8 g/dl (12.0-16.0) 08/14/24 17:37 Hct 42.8 % (37.0-47.0) 08/14/24 17:37 MCV 94.1 fL (80.0-100.0) 08/14/24 17:37 MCH 32.5 pg (25.0-34.0) 08/14/24 17:37 MCHC 34.6 g/dL (32.0-36.0) 08/14/24 17:37 RDW Std Deviation 42.5 fL (36.4-46.3) 08/14/24 17:37 RDW Coeff of Ellen 12.4 % (11.5-14.5) 08/14/24 17:37 Plt Count 189 K/uL (130-400) 08/14/24 17:37 MPV 10.6 fL (9.4-12.4) 08/14/24 17:37 Immature Gran % (Auto) 1.4 % 08/14/24 17:37 Neut % (Auto) 72.4 % 08/14/24 17:37 Lymph % (Auto) 17.1 % 08/14/24 17:37 Cooper % (Auto) 8.0 % 08/14/24 17:37 Eos % (Auto) 0.4 % 08/14/24 17:37 Baso % (Auto) 0.7 % 08/14/24 17:37 Neut # (Auto) 5.80 K/uL (1.40-6.50) 08/14/24 17:37 Lymph # (Auto) 1.37 K/uL (1.20-3.40) 08/14/24 17:37 Cooper # (Auto) 0.64 K/uL (0.11-0.59) H 08/14/24 17:37 Eos # (Auto) 0.03 K/uL (0.00-0.50) 08/14/24 17:37 Baso # (Auto) 0.06 K/uL (0.00-0.20) 08/14/24 17:37 Immature Gran # (Auto) 0.11 K/uL (0.01-0.20) 08/14/24 17:37 PT 30.6 Seconds (9.0-12.0) H 08/14/24 17:37 INR 3.1 (0.9-1.1) H 08/14/24 17:37 APTT 37 Seconds (21-31) H 08/14/24 17:37 PTT Ratio 1.4 08/14/24 17:37 Sodium 135 mmol/L (136-145) L 08/14/24 17:37 Potassium 4.6 mmol/L (3.5-5.1) 08/14/24 17:37 Chloride 96 mmol/L (98-107) L 08/14/24 17:37 Carbon Dioxide 28 mmol/L (21-32) 08/14/24 17:37 Anion Gap 11 (3-11) 08/14/24 17:37 BUN 19 mg/dl (6-23) 08/14/24 17:37 Creatinine 0.80 mg/dl (0.6-1.2) 08/14/24 17:37 Est Cr Clr Drug Dosing Not Reportable 08/14/24 17:37 Est GFR ( Amer) 76.8 ml/min 08/14/24 17:37 Est GFR (Non-Af Amer) 66.3 ml/min 08/14/24 17:37 BUN/Creatinine Ratio 23.8 (10-20) H 08/14/24 17:37 Glucose 256 mg/dl (70-99(Fasting)) H 08/14/24 17:37 Calcium 9.5 mg/dl (8.6-10.3) 08/14/24 17:37 Total Bilirubin 1.2 mg/dl (0.2-1.0) H 08/14/24 17:37 AST 21 U/L (13-39) 08/14/24 17:37 ALT 23 U/L (7-52) 08/14/24 17:37 Alkaline Phosphatase 74 U/L (34-104) 08/14/24 17:37 Troponin I High Sens 9.7 pg/ml (0-14) 08/14/24 17:37 Total Protein 7.3 gm/dl (6.0-8.3) 08/14/24 17:37 Albumin 4.4 gm/dl (3.4-5.0) 08/14/24 17:37 Globulin 2.9 gm/dl (2.5-4.0) 08/14/24 17:37 Albumin/Globulin Ratio 1.5 (0.9-2) 08/14/24 17:37 Urine Color Dark Yellow 08/14/24 15:57 Urine Appearance Cloudy (Clear) A 08/14/24 15:57 Urine pH 6.0 (4.5-7.5) 08/14/24 15:57 Ur Specific [place] 1.030 (1.000-1.030) 08/14/24 15:57 Urine Protein 1+ (Negative) H 08/14/24 15:57 Urine Glucose (UA) 3+ (Negative) H 08/14/24 15:57 Urine Ketones 1+ (Negative) H 08/14/24 15:57 Urine Blood Negative (Negative) 08/14/24 15:57 Urine Nitrite Negative (Negative) 08/14/24 15:57 Urine Bilirubin Negative (Negative) 08/14/24 15:57 Urine Urobilinogen Negative (Negative) 08/14/24 15:57 Ur Leukocyte Esterase 1+ (Negative) H 08/14/24 15:57 Urine WBC (Auto) 21-50 /hpf (0-5) H 08/14/24 15:57 Urine RBC (Auto) 6-10 /hpf (0-2) H 08/14/24 15:57 U Hyaline Cast (Auto) 0-2 /lpf (0-2) 08/14/24 15:57 U Epithel Cells (Auto) >20 /hpf (0-2) H 08/14/24 15:57 Urine Bacteria (Auto) 3+ (None Seen) H 08/14/24 15:57 Impressions Chest X-Ray 08/14/24 15:52 XR chest 1V portable HISTORY: 89 years-old Female illness acute shortness of breath COMPARISON: 11/03/2018 TECHNIQUE: AP view of the chest FINDINGS: Cardiac silhouette is mildly enlarged. Mild subsegmental bibasilar densities. Atherosclerosis of the aorta. No pneumothorax, large pleural effusion or overt pulmonary edema. Bones appear grossly intact. Left-sided rotator cuff calcific tendinosis. IMPRESSION: 1. Mild cardiomegaly without overt pulmonary edema. 2. Linear bibasilar densities suggest atelectasis. ACT 112: Negative or not required by law. The above report was generated using voice recognition software. It may contain grammatical, syntax or spelling errors. Electronically signed by: Eliezer Jacob M.D. 08/14/2024 4:56 PM Abdomen/Pelvis CT 08/14/24 16:36 Exam(s): CT ABDOMEN + PELVIS With Contrast IV Amt: 90 ml optiray 320 EXAM: CT Abdomen and Pelvis With Intravenous Contrast CLINICAL HISTORY: Reason for exam: fall, flank pain. TECHNIQUE: Axial computed tomography images of the abdomen and pelvis with intravenous contrast. CTDI is 38.1 mGy and DLP is 2799.95 mGy-cm. Automated exposure control was utilized for the study. A dose lowering technique was utilized adhering to the principles of ALARA. CONTRAST: Patient received 90 ml optiray 320 of IV contrast COMPARISON: No relevant prior studies available. FINDINGS: Heart: Cardiomegaly. ABDOMEN: Liver: Unremarkable. Gallbladder and bile ducts: Cholecystectomy. Pancreas: Unremarkable. Spleen: Unremarkable. Adrenals: Unremarkable. 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 Left renal cyst. Probable cyst in the right kidney. No urolithiasis. Stomach and bowel: Stomach is underdistended and not well assessed. Colonic diverticulosis without diverticulitis. PELVIS: Appendix: Appendix not visualized. Bladder: Unremarkable. Reproductive: Hysterectomy. ABDOMEN and PELVIS: Intraperitoneal space: No hemoperitoneum. Bones/joints: No acute fracture. Soft tissues: Fat-containing left inguinal hernia. Vasculature: No acute process. IMPRESSION: 1. No acute internal traumatic findings. 2. 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 There is a broader differential. Electronically signed by: Anita Ko M.D. 08/14/24 20:[address] 08/14/24 16:36 Exam(s): CT CHEST With Contrast IV Amt: 90ML OPITRAY 320 EXAM: CT Chest With Intravenous Contrast CLINICAL HISTORY: Reason for exam: fall, flank pain. TECHNIQUE: Axial computed tomography images of the chest with intravenous contrast. CTDI is 27.95 mGy and DLP is 846.55 mGy-cm. Automated exposure control was utilized for the study. A dose lowering technique was utilized adhering to the principles of ALARA. CONTRAST: Patient received 90ML OPITRAY 320 of IV contrast COMPARISON: 05/05/18. FINDINGS: Lungs: No consolidation or overt edema. Mosaic attenuation in the lungs as before Pleural space: No pneumothorax. No effusion. Heart: Cardiomegaly. Bones/joints: No acute fracture. Soft tissues: Scar or nodule in the right breast measuring 18 mm, appears more focal masslike on current exam. Vasculature: Unremarkable. No thoracic aortic aneurysm. Intraperitoneal space: Abdominal findings as described in the dedicated report of the abdomen. IMPRESSION: 1. No internal traumatic findings. 2. Scar or nodule in the right breast measuring 18 mm. Electronically signed by: Anita Ko M.D. 08/14/24 20:[address] 08/14/24 16:40 Exam(s): CT HEAD Without Contrast EXAM: CT Head Without Intravenous Contrast CLINICAL HISTORY: Reason for exam: fall, coumadin. TECHNIQUE: Axial computed tomography images of the head/brain without intravenous contrast. CTDI is 38.1 mGy and DLP is 2799.95 mGy-cm. Automated exposure control was utilized for the study. A dose lowering technique was utilized adhering to the principles of ALARA. COMPARISON: No relevant prior studies available. FINDINGS: Brain: No hemorrhage. No apparent acute cortical infarct. No mass lesion or midline shift. Senescent changes. Ventricles: No hydrocephalus. Bones/joints: No acute fracture. Soft tissues: Unremarkable. Sinuses: No acute sinusitis. Mastoid air cells: No mastoid effusion. Orbits: No acute process. IMPRESSION: No acute intracranial process. Electronically signed by: Anita Ko M.D. 08/14/24 20:18 PM ECG Additional Comments: ECG A-fib with rapid ventricular response rate of 119. Nonspecific ST and T abnormalities. Code Status & VTE Plan VTE Prophylaxis Plan VTE Prophylaxis will be ordered: Yes
[2024-08-15] MEDS ORDERED: GLUCAGON FOR INJ 1 MG VIAL SQ PRN (02:02)
[2024-08-15] MEDS ORDERED: GLUCOSE 40% GEL 15 GM TUBE PO PRN (02:02)
[2024-08-15] MEDS ORDERED: CARBOHYDRATES FOR HYPOGLYCEMIA PO PRN (02:02)
[2024-08-15] MEDS ORDERED: NITROGLYCERIN SL 0.4 MG/TAB TAB SL PRN (02:02)
[2024-08-15] MEDS ORDERED: DEXTROSE 50% 50 ML SYRINGE IV PRN (02:02)
[2024-08-15] MEDS ORDERED: FUROSEMIDE 20 MG TAB PO PRN (02:02)
[2024-08-15] MEDS ORDERED: POLYETHYLENE (MIRALAX) 17 GM PACK PO PRN (02:02)
[2024-08-15] MEDS ORDERED: GLUCOSE 10 TAB/TUBE PO PRN (02:02)
[2024-08-15] MEDS ORDERED: POTASSIUM CHLORIDE 10 MEQ TABCR PO PRN (02:02)
[2024-08-15] MEDS ORDERED: LORazepam 1 MG TAB PO PRN (02:02)
[2024-08-15] MEDS ORDERED: HYDROmorphone INJ 0.5 MG/0.5 ML SYR IV PRN (02:02)
[2024-08-15] MEDS: INSULIN ASPART PER UNIT CHARGE SC STA (02:24)
[2024-08-15] MEDS: ONDANSETRON INJ 2 MG/ML 2 ML VIAL IV PRN (02:26)
[2024-08-15] MEDS: LEVOTHYROXINE SODIUM 137 MCG TABLET PO SCH (06:21)
[2024-08-15] MEDS: CALCIUM 600MG + VIT D 400 IU TAB PO SCH (07:39)
[2024-08-15] MEDS: LOSARTAN POTASSIUM 50 MG TAB PO SCH (07:40)
[2024-08-15] MEDS: MAGNESIUM OXIDE 400 MG TAB PO SCH (07:40)
[2024-08-15] MEDS: SPIRONOLACTONE 12.5 MG TAB PO SCH (07:40)
[2024-08-15 08:15] LABS: Basophils # (auto) 0.03 K/uL (0.00-0.20); Basophils % (auto) 0.4 %; Eosinophils # (auto) 0.02 K/uL (0.00-0.50); Eosinophils % (auto) 0.3 %; Hematocrit (blood only) 40.1 % (37.0-47.0); Hemoglobin 13.2 g/dl (12.0-16.0); Immature Granulocytes # (auto) 0.04 K/uL (0.01-0.20); Immature Granulocytes % (auto) 0.5 %; Lymphocytes # (auto) 1.14 K/uL (1.20-3.40); Lymphocytes % (auto) 14.4 %; Mean Corpuscular Hemoglobin 31.7 pg (25.0-34.0); Mean Corpuscular Hgb Conc 32.9 g/dL (32.0-36.0); Mean Corpuscular Volume 96.2 fL (80.0-100.0); Mean Platelet Volume 10.4 fL (9.4-12.4); Monocytes # (auto) 0.66 K/uL (0.11-0.59); Monocytes % (auto) 8.3 %; Neutrophils # (auto) 6.02 K/uL (1.40-6.50); Neutrophils % (auto) 76.1 %; Platelet Count 183 K/uL (130-400); RDW Coefficient of Variation 12.6 % (11.5-14.5); RDW Standard Deviation 44.8 fL (36.4-46.3); Red Blood Count 4.17 M/uL (4.20-5.40); White Blood Count 7.91 K/ul (4.8-10.8)
[2024-08-15 08:41] LABS: Anion Gap 8 (3-11); Blood Urea Nitrogen 18 mg/dl (6-23); Calcium 8.5 mg/dl (8.6-10.3); Carbon Dioxide 30 mmol/L (21-32); Chloride 96 mmol/L (98-107); Est GFR (African American) 66.6 ml/min; Est GFR (Non-African American) 57.5 ml/min; Glucose 238 mg/dl (70-99(Fasting)); Magnesium 1.9 mg/dl (1.7-2.4); Sodium 134 mmol/L (136-145)
[2024-08-15 08:46] LABS: INR 2.6 (0.9-1.1); Prothrombin Time 25.9 Seconds (9.0-12.0)
[2024-08-15] MEDS: INSULIN ASPART PER UNIT CHARGE SC SCH (08:57)
[2024-08-15] MEDS ORDERED: NON-FORMULARY MEDICATION (Glucosamine-Chondroit-Vit C-Mn 500-400 mg Capsule) PO SCH (09:00)
[2024-08-15 09:30] LABS: Estimated Average Glucose 235 mg/dl; Hemoglobin A1C 9.8 % (4.5-5.6)
--- NOTE | 2024-08-15 10:43 | Communication Note ---
Date of Service: August 15, 2024 Patient seen and examined Reports fall about a week ago with left flank pain that was intermittent. However, became more persistent yesterday and involving LLQ with nausea and vomiting Reports some urinary freq with small vol urine. No dysuria/hematuria No fever Exam notable for ecchymoses on right leg, right elbow, left back Reviewed labs and CT scans No fractures noted UA suggests UTI Continue IV ceftriaxone Followup infectious workup PT/OT eval Fall precautions. Other plans as detailed in H/P this AM
[2024-08-15] MEDS: ACETAMINOPHEN 325 MG TAB PO PRN (14:49)
[2024-08-15] MEDS: cefTRIAXone SODIUM 2,000 MG/50 ML BAG IV SCH (16:11)
[2024-08-15] MEDS: WARFARIN SOD 2.5 MG TAB PO SCH (16:12)
[2024-08-15] MEDS ORDERED: METOPROLOL TARTRATE 1 MG/ML VIAL IV STA (22:49)
[2024-08-16] MEDS: METOPROLOL TARTRATE 1 MG/ML VIAL IV STA (01:12)
[2024-08-16 07:15] LABS: Hematocrit (blood only) 41.4 % (37.0-47.0); Hemoglobin 13.9 g/dl (12.0-16.0); Mean Corpuscular Hemoglobin 32.1 pg (25.0-34.0); Mean Corpuscular Hgb Conc 33.6 g/dL (32.0-36.0); Mean Corpuscular Volume 95.6 fL (80.0-100.0); Mean Platelet Volume 10.1 fL (9.4-12.4); Platelet Count 196 K/uL (130-400); RDW Coefficient of Variation 12.4 % (11.5-14.5); RDW Standard Deviation 43.9 fL (36.4-46.3); Red Blood Count 4.33 M/uL (4.20-5.40); White Blood Count 8.06 K/ul (4.8-10.8)
[2024-08-16 07:41] LABS: INR 2.4 (0.9-1.1); Prothrombin Time 24.5 Seconds (9.0-12.0)
[2024-08-16 07:42] LABS: Calcium 8.7 mg/dl (8.6-10.3); Creatinine Clr Calc Pharmacy 49.6 ml/min; Est GFR (African American) 74.6 ml/min; Est GFR (Non-African American) 64.3 ml/min; Magnesium 2.1 mg/dl (1.7-2.4); Potassium 4.2 mmol/L (3.5-5.1)
[2024-08-16 10:41] VITALS: RESP 16; TEMP 97.9; O2SAT 97
[2024-08-16] MEDS: LIDOCAINE 5% 1 PATCH TD STA (12:51)
--- NOTE | 2024-08-16 13:05 | Electrocardiogram Report ---
Test Reason : Blood Pressure : */* mmHG Vent. Rate : 119 BPM Atrial Rate : * BPM P-R Int : * ms QRS Dur : 70 ms QT Int : 268 ms P-R-T Axes : * 83 257 degrees QTcB Int : 376 ms Atrial fibrillation with rapid ventricular response Nonspecific ST and T wave abnormality Abnormal ECG When compared with ECG of 03-Nov-2018 13:01, Minimal criteria for Inferior infarct are no longer Present Confirmed by Mckinley Coronel ([id number]) on 08/16/2024 1:04:52 PM Referred By: Confirmed By: Mckinley Coronel
--- NOTE | 2024-08-16 13:32 | Discharge Summary ---
Date of Service August 16, 2024 Admission HPI Per Admitting Provider 89-year-old female with past medical history significant for type 2 diabetes, hypothyroidism, hyperlipidemia, lung nodule, hypertension, persistent atrial fibrillation, moderate mitral regurgitation, severe tricuspid regurgitation, peripheral vascular disease, hypertensive heart disease, morbid obesity, primary open-angle glaucoma bilateral moderate stage, PAIGE, congenital obstruction of ureteropelvic junction and s/p robotic pyeloplasty in 2005 with mild residual left UPJ with renal cyst ,simple and complex and also renal AML lives alone at home ambulates with a cane, son and daughter lives close by comes because of severe left flank pain and nausea and vomiting. Patient states 10 days ago while she was climbing steps in the basement which are made of concrete she fell backwards and has a bruise on her right posterior elbow region and distal right menendez and left lower back. She was not able to get up. Her family helped her get up and once she got up she was ambulating okay. But she is having pain in the left flank region. Today she was having a lot of nausea vomiting. And also a lot of pain in the left flank region which prompted her to come to the ER. Micturating okay. Denies any hematuria. Normal bowel movements. Denies chest pain. She gets short of breath on exertion. Does not use any oxygen at home. No fevers. No cough. No headache. No dizziness. No runny nose or sore throat. Hemodynamics are okay. Has edema in lower extremity and patient says uses Lasix as needed for edema. Past medical history. As mentioned above Past surgical history. Appendectomy. Colonoscopy. Removal of ovary. Cholecystectomy. Total hysterectomy. Social history. . No smoking. No alcohol use. No drug use. Family history. Father had arthritis. Heart disorder. Mother had arthritis. Hypertension. Stroke. Sister had stroke. Niece had Breast cancer. Brother had cancer. Admission Exam Per Admitting Provider General- Not in distress Head- atraumatic Eyes- PERRL. ENT- oropharynx clear Neck- supple, no JVD. Lungs- clear to auscultation no wheezing or crackles Heart- regular rhythm; no murmur, no gallop. Abdomen- normal bowel sounds, soft, nontender, no distension Extremities- b/l lower extremity gross edema present, bruise seen on right menendez. Neuro- alert, oriented ; PERRL, no facial palsy; no dysarthria; moves extremities Skin- bruise seen on posterior aspect of right elbow, distal right menendez and left lower back close to spine. Principal Diagnosis Fall Left flank pain UTI Discharge Exam Constitutional + well hydrated and + obese; no acute distress Eyes PERRL, conjunctivae normal, anicteric sclerae ENMT external ear and nose normal, oropharynx normal Respiratory normal respiratory effort, lungs clear to auscultation Cardiovascular Rate/Rhythm: + irregularly irregular S1 S2 Gastrointestinal (Abdomen) normal bowel sounds, soft, nontender, no hepatosplenomegaly Musculoskeletal Ecchymoses on right leg, right elbow, left back Neurologic PERRL, EOMI, accommodation nl, no face palsy, no dysarthria Psychiatric A+Ox3, euthymic affect Discharge Data Allergies Allergy/AdvReac Type Severity Reaction Status Date / Time codeine Allergy Mild N/V Verified 08/14/24 22:28 adhesive tape Allergy Unknown Rash Verified 08/14/24 22:28 celecoxib [From Celebrex] Allergy Unknown Unknown Verified 08/14/24 22:28 Sulfa (Sulfonamide Allergy Unknown ITCHING/HIV Verified 08/14/24 22:28 Antibiotics) ES benzalkonium chloride AdvReac Unknown "DID NOT Verified 08/14/24 22:28 WORK" bimatoprost AdvReac Unknown "DID NOT Verified 08/14/24 22:28 WORK dulaglutide [From Trulicity] AdvReac Unknown Muscle Pain Verified 08/14/24 22:28 timolol AdvReac Unknown "DID NOT Verified 08/14/24 22:28 WORK" travoprost AdvReac Unknown DID NOT Verified 08/14/24 22:28 WORK Consultations 08/14/24 21:28 ED Decision to Admit Stat Ordered Studies 08/14/24 16:36 CT abd pelvis IV con only Stat Heart: Cardiomegaly. ABDOMEN: Liver: Unremarkable. Gallbladder and bile ducts: Cholecystectomy. Pancreas: Unremarkable. Spleen: Unremarkable. Adrenals: Unremarkable. 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 Left renal cyst. Probable cyst in the right kidney. No urolithiasis. Stomach and bowel: Stomach is underdistended and not well assessed. Colonic diverticulosis without diverticulitis. PELVIS: Appendix: Appendix not visualized. Bladder: Unremarkable. Reproductive: Hysterectomy. ABDOMEN and PELVIS: Intraperitoneal space: No hemoperitoneum. Bones/joints: No acute fracture. Soft tissues: Fat-containing left inguinal hernia. Vasculature: No acute process. IMPRESSION: 1. No acute internal traumatic findings. 2. 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 There is a broader differential. CT chest diagnostic w con Stat Lungs: No consolidation or overt edema. Mosaic attenuation in the lungs as before Pleural space: No pneumothorax. No effusion. Heart: Cardiomegaly. Bones/joints: No acute fracture. Soft tissues: Scar or nodule in the right breast measuring 18 mm, appears more focal masslike on current exam. Vasculature: Unremarkable. No thoracic aortic aneurysm. Intraperitoneal space: Abdominal findings as described in the dedicated report of the abdomen. IMPRESSION: 1. No internal traumatic findings. 2. Scar or nodule in the right breast measuring 18 mm. 08/14/24 16:40 CT head/brain wo con Stat Brain: No hemorrhage. No apparent acute cortical infarct. No mass lesion or midline shift. Senescent changes. Ventricles: No hydrocephalus. Bones/joints: No acute fracture. Soft tissues: Unremarkable. Sinuses: No acute sinusitis. Mastoid air cells: No mastoid effusion. Orbits: No acute process. IMPRESSION: No acute intracranial process. Diabetes Follow up Diabetes Follow-up Needed for HgbA1c >9% Hospital Course (1) Acute UTI: 89-year-old female with past medical history significant for type 2 diabetes, hypothyroidism, hyperlipidemia, lung nodule, hypertension, persistent atrial fibrillation, moderate mitral regurgitation, severe tricuspid regurgitation, peripheral vascular disease, hypertensive heart disease, morbid obesity, primary open-angle glaucoma bilateral moderate stage, PAIGE, congenital obstruction of ureteropelvic junction and s/p robotic pyeloplasty in 2005 with mild residual left UPJ with renal cyst ,simple and complex and also renal AML lives alone at home ambulates with a cane, son and daughter lives close by comes because of severe left flank pain and nausea and vomiting. Patient had a fall 10 days prior with left flank pain Pain worsened with nausea and vomiting prior to presentation Acute UTI UA had 21-50WBC, leuk esterase Started on Ceftriaxone inpatient UCx grew multiple organism, likely contaminated Discharged on cefdinir to complete treatment Left flank pain Recent fall Patient has history of left congenital UPJ obstruction status post robotic pyeloplasty [place] 2005 CT abdomen pelvis no acute internal traumatic findings Pain has improved significantly Continue tylenol. Wants to try lidocaine patch PT/OT evaluated. Educated on fall precautions Right breast nodule On the CT scan. 18 mm Needs follow-up with PCP Chronic diastolic CHF Valvular heart disease Lower extremity edema Continue home spironolactone and lasix Persistent atrial fibrillation On Coumadin. Hypothyroidism On Synthyroid Diabetes HbA1c 9.8 Provided DM education PCP to monitor and may need med adjustments Hypertension On losartan, spironolactone Anxiety On lorazepam as needed Primary open-angle glaucoma bilaterally Continue home eyedrops Peripheral vascular disease On Coumadin Renal cyst Seems chronic Follow-up Total Time Total Time Spent Total Time Spent (In Minutes): 35 Total Time Includes: Examination of the Patient, Discharge Planning and Medication Reconciliation Discharge Plan Discharge Items Patient Disposition: Home - Self-Care Reason For Visit: ACUTE UTI, FLANK PAIN, HX OF A FIB Discharge Diagnosis: Fall Left flank pain UTI Condition on Discharge: Fair Activity: Resume your previous activity Non-emergency contact: Primary Care Provider Call non-emergency contact if: you have any medication questions and your symptoms worsen Follow-up/Referrals: Marycruz Luciano PA-C [Primary Care Provider] - Diet: Carb Consistent or DM2, Heart Healthy and Low Sodium (2gm) Addtl Attending Provider Instructions: Mrs Escobedo You came to the hospital with left flank pain after fall. You were evaluated and managed for the above listed diagnoses. You are being discharged home on a few more days of antibiotics. Please ensure follow up with your Primary Doctor. It was a pleasure taking care of you. Pending Studies at Discharge: No Stand-Alone Forms: My [facility] iMI[employer], Smoking Cessation Medications and DC Order Prescriptions: New cefdinir 300 mg capsule 300 mg PO BID 5 Days Qty: 10 0RF acetaminophen [Tylenol] 325 mg tablet 650 mg PO Q6H PRN (Reason: pain) Qty: 30 0RF lidocaine 5 % adhesive patch,medicated 1 patch topical DAILY Qty: 15 0RF Rx Instructions: leave on most painful area for up to 12 hrs Continued spironolactone 25 mg tablet 12.5 mg PO DAILY warfarin 5 mg tablet 2.5 - 5 mg PO DAILY Rx Instructions: as directed by coumadin clinic Saturday, Saturday, , Saturday 2.5mg Saturday, Saturday, Saturday 5mg furosemide 20 mg tablet 20 mg PO DAILY PRN (Reason: swelling) lorazepam 1 mg tablet 1 mg PO HS PRN (Reason: Anxiety) losartan 100 mg tablet 100 mg PO DAILY potassium chloride 10 mEq tablet,ER particles/crystals 10 meq PO DAILY PRN (Reason: Fluid Retention) Rx Instructions: TAKE WHEN TAKING FUROSEMIDE levothyroxine 137 mcg tablet 137 mcg PO DAILYBB metformin 500 mg tablet extended release 24 hr 500 mg PO BID Rx Instructions: take with dinner magnesium 200 mg Tablet 400 mg PO TID [id number] C-Mn 500-400 mg Capsule 1 cap PO DAILY omega-3 fatty acids Capsule 1,000 mg PO DAILY brimonidine [Alphagan P] 0.1 % drops 1 drp OPB TID calcium carbonate-vitamin D3 [Calcium 500 + D] 500 mg-10 mcg (400 unit) Tablet 1 tab PO DAILY Discharge Orders: Discharge Order (Routine); Ordered 08/16/24 Ordered By: Paulette Verdugo/Other Patient Handouts: High Blood Sugar (Hyperglycemia), Managing Type 2 Diabetes Admission Data Admit Date/Time: 08/15/24 00:56 Attending Provider: Paulette Asher I. Admit Provider: Kumar Slater Primary Care Provider: Marycruz Luciano Other Providers: Kumar Slater Other Interventions: Discharge Summary Assessment (RN) Last Done: 08/16/24 14:55
[2024-08-16 13:45] VITALS: BP 149/83
[2024-08-16 14:56] VITALS: PULSE 84
[2024-08-17] MEDS ORDERED: WARFARIN SOD 5 MG TAB PO SCH (16:00)
== END 2024-08-16 17:07 | disposition home or self-care (01) | DRG 690 ==
LOC: ED 15:41 → 2W 08-15 00:56